=== PATIENT | male | born 1980 | race American Indian/Alaskan Native ===

== ENCOUNTER 2021-09-07 16:42 | Inpatient (IN) | payer SELFPAY ==
[2021-09-07] MEDS ORDERED: ONDANSETRON 4 MG/2 ML INJ IV ONE (19:46)
[2021-09-07] MEDS ORDERED: FAMOTIDINE 20 MG/2 ML INJ IV ONE (19:46)
[2021-09-07] MEDS ORDERED: SODIUM CHLORIDE 0.9% 1000 ML 1,000 ML IV ONE ×2 (19:46→22:19)
[2021-09-07] MEDS ORDERED: KETOROLAC 30 MG/1 ML INJ IV ONE (19:46)
[2021-09-07 20:01] LABS: Basophils # (Auto) 0.1 K/mm3 (0.0-0.1); Basophils % (Auto) 1.5 % (0.0-1.8); Eosinophils # (Auto) 0.1 K/mm3 (0.0-0.4); Eosinophils % (Auto) 0.8 % (0.0-4.3); Hematocrit 39.7 % (35.5-45.6); Hemoglobin 13.6 gm/dl (11.8-15.2); Lymphocytes # (Auto) 0.7 K/mm3 (1.2-5.4); Lymphocytes % (Auto) 8.3 % (13.4-35.0); Mean Corpuscular HGB Conc 34 % (32-34); Mean Corpuscular Volume 84 fl (84-94); Monocytes # (Auto) 0.4 K/mm3 (0.0-0.8); Monocytes % (Auto) 4.8 % (0.0-7.3); Platelet Count 224 K/mm3 (140-440); Red Blood Count 4.73 M/mm3 (3.65-5.03); Red Cell Distribution Width 12.8 % (13.2-15.2)
[2021-09-07 20:24] LABS: Albumin 3.7 g/dL (3.9-5); Calcium 7.7 mg/dL (8.4-10.2)
[2021-09-07] MEDS ORDERED: MORPHINE 4 MG/1 ML INJ IV ONE (20:40)
--- NOTE | 2021-09-07 21:02 | XRay Report ---
CHEST 1 VIEW 09/07/2021 8:50 PM INDICATION / CLINICAL INFORMATION: COUGH. COMPARISON: None available. FINDINGS: SUPPORT DEVICES: None. HEART / MEDIASTINUM: The heart size and pulmonary vasculature are normal. LUNGS / PLEURA: No significant pulmonary or pleural abnormality. No pneumothorax. ADDITIONAL FINDINGS: No significant additional findings. IMPRESSION: No acute findings. Signer Name: Diogenes Staton MD Signed: 09/07/2021 8:58 PM Workstation Name: [id number]
--- NOTE | 2021-09-07 21:05 | Emergency Department Report ---
ED N/V/D HPI - General Chief complaint: Nausea/Vomiting/Diarrhea Stated complaint: DEHYDRATION WITH N/V Source: patient Mode of arrival: Ambulatory Limitations: No Limitations - History of Present Illness Initial comments: Patient is a 40-year-old -Mauritian male with no past medical history who presents to the ED with complaint of acute onset persistent nausea and vomiting with low back pain and generalized weakness for the last 1 week. Patient also complains of generalized fatigue with intermittent diffuse lower abdominal pain that radiates to the lower back. Patient denies dizziness, syncope, chest pain or shortness of breath, fever, chills, cough, sore throat, hematemesis, hematochezia, diarrhea, dysuria, urinary frequency and urgency, hematuria or headache. MD complaint: nausea, vomiting, other (lower back pain; generalized weakness, abdominal pain) -: Sudden, week(s) (1) Description of Vomiting: food contents, watery, bilious Associated Abdominal Pain: Yes (diffuse) Location: diffuse Radiation: other (lower back pain) Severity: severe Pain Scale: 7 Quality: aching, sharp Consistency: constant Improves with: none Worsens with: movement Associated Symptoms: denies other symptoms, myalgias, loss of appetite, malaise, nausea/vomiting, weakness, other (lower back pain). denies: chest pain, cough, diaphoresis, fever/chills, headaches, rash, dysuria, shortness of breath, syncope - Related Data Allergies Allergy/AdvReac Type Severity Reaction Status Date / Time No Known Allergies Allergy Unverified 09/07/21 16:50 ED Review of Systems ROS: Stated complaint: DEHYDRATION WITH N/V Other details as noted in HPI Constitutional: malaise, weakness. denies: chills, fever Eyes: denies: eye pain, eye discharge, vision change ENT: denies: ear pain, throat pain Respiratory: denies: cough, shortness of breath, wheezing Cardiovascular: denies: chest pain, palpitations Endocrine: no symptoms reported Gastrointestinal: abdominal pain, nausea, vomiting. denies: diarrhea Genitourinary: denies: urgency, dysuria Musculoskeletal: back pain (lower), arthralgia, myalgia. denies: joint swelling Skin: denies: rash, lesions Neurological: headache. denies: weakness, paresthesias Psychiatric: denies: anxiety, depression Hematological/Lymphatic: denies: easy bleeding, easy bruising ED Physical Exam - General Limitations: No Limitations General appearance: alert, in no apparent distress - Head Head exam: Present: atraumatic, normocephalic, normal inspection - Eye Eye exam: Present: normal appearance, PERRL, EOMI Pupils: Present: normal accommodation - ENT ENT exam: Present: normal exam, normal orophraynx, mucous membranes moist, TM's normal bilaterally, normal external ear exam - Neck Neck exam: Present: normal inspection, full ROM - Respiratory Respiratory exam: Present: normal lung sounds bilaterally. Absent: respiratory distress, wheezes, rales, rhonchi, chest wall tenderness, accessory muscle use, prolonged expiratory - Cardiovascular Cardiovascular Exam: Present: regular rate, normal rhythm, normal heart sounds. Absent: systolic murmur, diastolic murmur, rubs, gallop - GI/Abdominal GI/Abdominal exam: Present: soft, normal bowel sounds. Absent: tenderness, guarding, rebound, hyperactive bowel sounds, hypoactive bowel sounds, organomegaly, mass, pulsatile mass - Extremities Exam Extremities exam: Present: normal inspection, full ROM, normal capillary refill - Back Exam Back exam: Present: normal inspection, full ROM, tenderness, muscle spasm, paraspinal tenderness. Absent: CVA tenderness (R), CVA tenderness (L), vertebra l tenderness (Palpable lumbosacral paraspinal musculoskeletal tenderness) - Neurological Exam Neurological exam: Present: alert, oriented X3, CN II-XII intact, normal gait, reflexes normal - Psychiatric Psychiatric exam: Present: normal affect, normal mood - Skin Skin exam: Present: warm, dry, intact, normal color. Absent: rash ED Course Vital Signs 09/07/21 16:53 Temperature 98.8 F Pulse Rate 60 Respiratory 20 Rate Blood Pressure 134/81 [Right] O2 Sat by Pulse 98 Oximetry ED Medical Decision Making - Lab Data Result diagrams: 09/07/21 19:51 09/07/21 19:51 - Radiology Data Radiology results: report reviewed, image reviewed [facility] [address] [place] [address] XRay Report Signed Patient: JUSTYNA PEREZ MR#: [id number] : 1980 Acct:[id number] Age/Sex: 40 / M ADM Date: 09/07/21 Loc: ED Attending Dr: Ordering Physician: NICHELLE BALLESTEROS Date of Service: 09/07/21 Procedure(s): XR chest 1V ap Accession Number(s): [id number] cc: NICHELLE BALLESTEROS Fluoro Time In Minutes: CHEST 1 VIEW 09/07/2021 8:50 PM INDICATION / CLINICAL INFORMATION: COUGH. COMPARISON: None available. FINDINGS: SUPPORT DEVICES: None. HEART / MEDIASTINUM: The heart size and pulmonary vasculature are normal. LUNGS / PLEURA: No significant pulmonary or pleural abnormality. No pneumothorax. ADDITIONAL FINDINGS: No significant additional findings. IMPRESSION: No acute findings. Signer Name: Diogenes Staton MD Signed: 09/07/2021 8:58 PM Workstation Name: [id number] Transcribed By: RT Dictated By: Diogenes Staton MD Electronically Authenticated By: Diogenes Staton MD Signed Date/Time: 09/07/212057 DD/ 56 TD/TT: Print - Medical Decision Making This is a 40-year-old -Mauritian male with no past medical history who presents to the ED with complaint of acute onset persistent nausea and vomiting with low back pain and generalized weakness for the last 1 week. Patient also complains of generalized fatigue with intermittent diffuse lower abdominal pain that radiates to the lower back. In the ED, patient is alert and oriented x3 and is not in any distress. Patient is more dynamically stable. Lab test results were reviewed and showed acute hyponatremia of 129 mmol/L, hypochloremia of 84.8 mmol/L, BUN of 171 and creatinine of 19.9, and hyperglycemia of 128 mg/dL. Patient was treated in the ED with normal saline, also given pain medication. Chest x-ray showed no acute cardiopulmonary abnormalities or pneumonitis. EKG shows sinus bradycardia with a ventricular rate of 55 bpm, and LAD, consideration of left anterior fascicular block but no ST elevation or depression. I discussed the patient's case with the ED attending physician Dr. Gay who agreed with the plan of care. I discussed the patient case with the financial assistance specialist on-call Dr. Fernando Bauman who agreed to consult on the patient and advised the patient be given IV fluids and that blood test can be performed. I therefore discussed the patient's case with the hospitalist physician on-call Dr. Cevallos who admitted the patient to the hospital. - Differential Diagnosis muscle spasm; renal injury; dehydration; NSTEMI; hyponatremia Critical Care Time: Yes Critical care time in (mins) excluding proc time.: 40 Critical care attestation.: If time is entered above; I have spent that time in minutes in the direct care of this critically ill patient, excluding procedure time. Critical care time spent on review of lab test results, imaging reports, patient education, consult with specialists Critical Care Time: 40 minutes ED Disposition Clinical Impression: Dehydration, Nausea and vomiting in adult patient, Acute hyponatremia, NSTEMI (non-ST elevated myocardial infarction) Acute renal failure (ARF) Qualifiers: Acute renal failure type: unspecified Qualified Code(s): N17.9 - Acute kidney failure, unspecified Disposition: 02 [facility]ORT TERM [facility] Is pt being admited?: Yes Does the pt Need Aspirin: No Condition: Fair Instructions: Dehydration, Adult, [id number] Referrals: PRIMARY CARE, [Primary Care Provider] - 3-5 Days Time of Disposition: 21:44 Print Language: TAMAZIGHT
[2021-09-07] MEDS ORDERED: ACETAMINOPHEN 325 MG TAB PO PRN ×2 (21:45→22:42)
[2021-09-07] MEDS ORDERED: ONDANSETRON 4 MG/2 ML INJ IV PRN ×2 (21:45→22:42)
[2021-09-07 22:05] LABS: Chol/HDL Ratio 4.21 %
[2021-09-07] MEDS ORDERED: MAGNESIUM HYDROXIDE (MOM) ORAL LIQD UDC PO PRN (22:42)
[2021-09-07] MEDS ORDERED: MORPHINE 2 MG/1 ML INJ IV PRN (22:42)
--- NOTE | 2021-09-07 22:53 | History and Physical Report ---
History of Present Illness Date of examination: 09/07/21 Date of admission: 09/07/2021 Chief complaint: Nausea vomiting and diarrhea Back pain History of present illness: 40-year-old -Maldivian male with no significant past medical history presents to the in the emergency room with acute onset of nausea and vomiting with accompanying lower back pain. He also indicates that he has been having generalized weakness over the past 1 week. Patient denies any fever or chills, denies any chest pain, no shortness of breath, no headache or dizziness and no diaphoresis. He has had some intermittent lower abdominal pain that radiates to the back. He denies any hematuria or dysuria. Patient denies any sick contacts and no recent travel. Denies any contact with anyone with COVID-19. Work-up in the emergency room today, significant findings when the labs with hyponatremia 129, BUN was 171 and creatinine of 19.9. Troponin of 0.174. Chest x-ray unremarkable. Renal ultrasound shows mild bilateral renal parenchymal thickening with echogenic kidneys. Mild right-sided hydronephrosis with stone disease. Past History Past Medical History: No medical history Past Surgical History: No surgical history Social history: no significant social history Family history: no significant family history Medications and Allergies Allergies Allergy/AdvReac Type Severity Reaction Status Date / Time No Known Allergies Allergy Unverified 09/07/21 16:50 Active Meds: Active Medications Acetaminophen (Acetaminophen 325 Mg Tab) 650 mg PO Q4H PRN PRN Reason: Pain MILD(1-3)/Fever >100.5/JOHNSON Heparin Sodium (Porcine) (Heparin 5,000 Unit/1 Ml Vial) 5,000 unit SUB-Q Q8HR MARK Sodium Chloride (Nacl 0.9% 1000 Ml) 1,000 mls @ 999 mls/hr IV BOLUS ONE Stop: 09/07/21 23:19 Sodium Chloride (Nacl 0.9% 1000 Ml) 1,000 mls @ 125 mls/hr IV DIRECT MARK Magnesium Hydroxide (Magnesium Hydroxide (Mom) Oral Liqd Udc) 30 ml PO Q4H PRN PRN Reason: Constipation Morphine Sulfate (Morphine 2 Mg/1 Ml Inj) 2 mg IV Q4H PRN PRN Reason: Pain, Moderate (4-6) Morphine Sulfate (Morphine 4 Mg/1 Ml Inj) 4 mg IV Q4H PRN PRN Reason: Pain , Severe (7-10) Ondansetron HCl (Ondansetron 4 Mg/2 Ml Inj) 4 mg IV Q8H PRN PRN Reason: Nausea And Vomiting Ondansetron HCl (Ondansetron 4 Mg/2 Ml Inj) 4 mg IV Q8H PRN PRN Reason: Nausea And Vomiting Sodium Chloride (Sodium Chloride 0.9% 10 Ml Flush Syringe) 10 ml IV BID MARK Sodium Chloride (Sodium Chloride 0.9% 10 Ml Flush Syringe) 10 ml IV PRN PRN PRN Reason: LINE FLUSH Review of Systems Constitutional: no fever, no chills Ears, nose, mouth and throat: no nasal congestion, no sore throat Cardiovascular: no chest pain, no palpitations Respiratory: no cough, no shortness of breath Gastrointestinal: nausea, vomiting, diarrhea, no abdominal pain, no hematemesis, no melena, no hematochezia Genitourinary Male: no dysuria, no hematuria, no flank pain, no nocturia Musculoskeletal: low back pain, no neck pain Integumentary: no rash, no pruritis Neurological: no headaches, no confusion Psychiatric: no anxiety, no depression Endocrine: no polyphagia, no polydipsia, no polyuria, no nocturia Exam - Constitutional Vitals: Temp Pulse Resp BP Pulse Ox 98.8 F 60 16 134/81 98 09/07/21 16:53 09/07/21 16:53 09/07/21 22:13 09/07/21 16:53 09/07/21 16:53 General appearance: Present: no acute distress, well-nourished - EENT Eyes: Present: PERRL, EOM intact. Absent: scleral icterus ENT: hearing intact, clear oral mucosa, dentition normal - Neck Neck: Present: supple, normal ROM - Respiratory Respiratory effort: normal Respiratory: bilateral: CTA - Cardiovascular Rhythm: regular Heart Sounds: Present: S1 & S2. Absent: systolic murmur, diastolic murmur, rub, click - Extremities Extremities: no ischemia, pulses intact, pulses symmetrical, No edema, normal temperature, normal color, Full ROM Peripheral Pulses: within normal limits - Abdominal General gastrointestinal: Present: soft, non-tender, non-distended, normal bowel sounds. Absent: mass - Integumentary Integumentary: Present: clear, warm, dry, normal turgor. Absent: rash - Musculoskeletal Musculoskeletal: strength equal bilaterally - Psychiatric Psychiatric: appropriate mood/affect, intact judgment & insight, memory intact, cooperative - Neurologic Neurologic: CNII-XII intact, no focal deficits, moves all extremities HEART Score - HEART Score Troponin: Troponin T 0.174 ng/mL (0.00-0.029) H* 09/07/21 20:51 Results - Labs CBC & Chem 7: 09/07/21 19:51 09/07/21 19:51 Labs: Abnormal lab results 09/07/21 09/07/21 09/07/21 Range/Units 19:51 19:51 20:51 RDW 12.8 L (13.2-15.2) % Lymph % (Auto) 8.3 L (13.4-35.0) % Lymph # (Auto) 0.7 L (1.2-5.4) K/mm3 Seg Neutrophils % 84.6 H (40.0-70.0) % Sodium 129 L (137-145) mmol/L Chloride 84.8 L (98-107) mmol/L Carbon Dioxide 17 L (22-30) mmol/L BUN 171 H (9-20) mg/dL Creatinine 19.9 H (0.8-1.3) mg/dL Glucose 128 H (75-100) mg/dL Calcium 7.7 L (8.4-10.2) mg/dL ALT 123 H (7-56) units/L Troponin T 0.174 H* (0.00-0.029) ng/mL Albumin 3.7 L (3.9-5) g/dL Triglycerides 220 H (2-149) mg/dL Assessment and Plan - Patient Problems (1) Acute renal failure (ARF) Current Visit: Yes Status: Acute Qualifiers: Acute renal failure type: unspecified Qualified Code(s): N17.9 - Acute kidney failure, unspecified Plan to address problem: Patient started on IV fluid normal saline. Will monitor BUN and creatinine. Consult placed to nephrology for evaluation. Renal ultrasound showed some mild right-sided hydronephrosis. May need urology evaluation. (2) Acute hyponatremia Current Visit: Yes Status: Acute Plan to address problem: Possibly secondary to the nausea and vomiting. Will continue on IV fluid and monitor chemistry. (3) Dehydration Current Visit: Yes Status: Acute Plan to address problem: Secondary to the nausea and vomiting. Will continue on IV fluid. (4) NSTEMI (non-ST elevated myocardial infarction) Current Visit: Yes Status: Acute Plan to address problem: Possibly secondary to the renal failure. Patient has denied any chest pain. Will monitor. (5) Nausea and vomiting in adult patient Current Visit: Yes Status: Acute Plan to address problem: Patient placed on IV Zofran as needed. (6) DVT prophylaxis Current Visit: Yes Status: Acute Plan to address problem: Patient placed on subcutaneous heparin. (7) Full code status Current Visit: Yes Status: Acute Plan to address problem: Patient is full code.
--- NOTE | 2021-09-08 01:37 | Ultrasound Report ---
. ULTRASOUND RENAL INDICATION / CLINICAL INFORMATION: Acute kidney injury. COMPARISON: None available. FINDINGS: RIGHT KIDNEY: Length = 11.6 cm. [normal > 9 cm] - Parenchymal Thickness = 1.2 cm. [normal > 1.5 cm] - Echogenicity: Increased - Hydronephrosis: Mild - Cyst or mass: No significant abnormality. - Stones: Calyceal stones measuring up to 5 mm in the lower pole. There also appears to be a stone in the right renal pelvis measuring 7 mm. LEFT KIDNEY: Length = 11.6 cm. [normal > 9 cm] - Parenchymal Thickness = 1.0 cm. [normal > 1.5 cm] - Echogenicity: Increased - Hydronephrosis: None. - Cyst or mass: No significant abnormality. - Stones: None seen. URINARY BLADDER: No significant abnormality. FREE FLUID: None. ADDITIONAL FINDINGS: None. IMPRESSION: 1. Mild bilateral renal parenchymal thinning and echogenic kidneys, nonspecific but often seen with m edical renal disease. 2. Mild right-sided hydronephrosis with stone disease as above. Signer Name: Cameron Mo MD Signed: 09/08/2021 1:33 AM Workstation Name: [id number]
[2021-09-08] MEDS ORDERED: FAMOTIDINE 20 MG/2 ML INJ IV ONE (01:55)
[2021-09-08] MEDS: MORPHINE 4 MG/1 ML INJ IV PRN ×2 (02:03→15:31)
[2021-09-08 05:40] LABS: Basophils % (Auto) 0.5 % (0.0-1.8); Eosinophils # (Auto) 0.1 K/mm3 (0.0-0.4); Eosinophils % (Auto) 1.3 % (0.0-4.3); Hematocrit 34.9 % (35.5-45.6); Hemoglobin 12.2 gm/dl (11.8-15.2); Lymphocytes # (Auto) 1.2 K/mm3 (1.2-5.4); Mean Corpuscular HGB Conc 35 % (32-34); Mean Corpuscular Volume 84 fl (84-94); Monocytes # (Auto) 0.5 K/mm3 (0.0-0.8); Monocytes % (Auto) 6.4 % (0.0-7.3); Platelet Count 213 K/mm3 (140-440); Red Blood Count 4.14 M/mm3 (3.65-5.03); Red Cell Distribution Width 12.9 % (13.2-15.2)
--- NOTE | 2021-09-08 11:01 | Consultation ---
History of Present Illness Consult date: 09/08/21 Requesting physician: MOI SINGER Consult reason: elevated troponin History of present illness: 40-year-old male who denies hypertension diabetes cholesterol states he was drinking too much on marito and since then is been feeling weak and fatigued. Was smoking. Denies any drug use. States was recently incarcerated and released in July. States seeing a physician and was stable. Denies any chest pain shortness of breath palpitation lightheadedness and Past History Past Medical History: No medical history Past Surgical History: No surgical history Social history: no significant social history Family history: no significant family history Medications and Allergies Allergies Allergy/AdvReac Type Severity Reaction Status Date / Time No Known Allergies Allergy Unverified 09/07/21 16:50 Active Meds: Active Medications Acetaminophen (Acetaminophen 325 Mg Tab) 650 mg PO Q4H PRN PRN Reason: Pain MILD(1-3)/Fever >100.5/JOHNSON Heparin Sodium (Porcine) (Heparin 5,000 Unit/1 Ml Vial) 5,000 unit SUB-Q Q8HR MARK Sodium Chloride (Nacl 0.9% 1000 Ml) 1,000 mls @ 125 mls/hr IV DIRECT MARK Magnesium Hydroxide (Magnesium Hydroxide (Mom) Oral Liqd Udc) 30 ml PO Q4H PRN PRN Reason: Constipation Morphine Sulfate (Morphine 2 Mg/1 Ml Inj) 2 mg IV Q4H PRN PRN Reason: Pain, Moderate (4-6) Morphine Sulfate (Morphine 4 Mg/1 Ml Inj) 4 mg IV Q4H PRN PRN Reason: Pain , Severe (7-10) Last Admin: 09/08/21 02:03 Dose: 4 mg Ondansetron HCl (Ondansetron 4 Mg/2 Ml Inj) 4 mg IV Q8H PRN PRN Reason: Nausea And Vomiting Sodium Chloride (Sodium Chloride 0.9% 10 Ml Flush Syringe) 10 ml IV BID [facility] Last Admin: 09/08/21 09:58 Dose: 10 ml Sodium Chloride (Sodium Chloride 0.9% 10 Ml Flush Syringe) 10 ml IV PRN PRN PRN Reason: LINE FLUSH Review of Systems All systems: negative (as per hpi) Physical Examination Vital Signs Temp Pulse Resp BP Pulse Ox 98.8 F 60 20 134/81 98 09/07/21 16:53 09/07/21 16:53 09/07/21 16:53 09/07/21 16:53 09/07/21 16:53 General appearance: no acute distress, well-nourished HEENT: Positive: PERRL, Mucus Membranes Moist Neck: Positive: neck supple, trachea midline Cardiac: Positive: Reg Rate and Rhythm, S1/S2. Negative: Audible Murmur Lungs: Positive: clear to auscultation, Normal Breath Sounds Neuro: Positive: Grossly Intact Abdomen: Positive: Soft, Active Bowel Sounds. Negative: Tender, Distended Male genitourinary: Positive: normal Skin: Positive: Clear Incision: Cardiac Cath Site Musculoskeletal: No Pain, Normal Range of Motion Extremities: Present: normal. Absent: edema Results 09/08/21 04:16 09/08/21 04:16 Cardiac Enzymes 09/07/21 Range/Units 19:51 AST 33 (5-40) units/L Lipids 09/07/21 Range/Units 20:51 Triglycerides 220 H (2-149) mg/dL Cholesterol 194 (50-199) mg/dL HDL Cholesterol 46 (40-59) mg/dL Cholesterol/HDL Ratio 4.21 % CBC 09/07/21 09/08/21 Range/Units 19:51 04:16 WBC 8.0 8.1 (4.5-11.0) K/mm3 RBC 4.73 4.14 (3.65-5.03) M/mm3 Hgb 13.6 12.2 (11.8-15.2) gm/dl Hct 39.7 34.9 L (35.5-45.6) % Plt Count 224 213 (140-440) K/mm3 Lymph # (Auto) 0.7 L 1.2 (1.2-5.4) K/mm3 [place] # (Auto) 0.4 0.5 (0.0-0.8) K/mm3 Eos # (Auto) 0.1 0.1 (0.0-0.4) K/mm3 Baso # (Auto) 0.1 0.0 (0.0-0.1) K/mm3 Comprehensive Metabolic Panel 09/07/21 09/08/21 Range/Units 19:51 04:16 Sodium 129 L 131 L (137-145) mmol/L Potassium 4.3 4.1 (3.6-5.0) mmol/L Chloride 84.8 L 88.9 L (98-107) mmol/L Carbon Dioxide 17 L 16 L (22-30) mmol/L BUN 171 H 170 H (9-20) mg/dL Creatinine 19.9 H 19.6 H (0.8-1.3) mg/dL Glucose 128 H 83 (75-100) mg/dL Calcium 7.7 L 7.0 L (8.4-10.2) mg/dL AST 33 (5-40) units/L ALT 123 H (7-56) units/L Alkaline Phosphatase 49 (35-129) units/L Total Protein 7.1 (6.3-8.2) g/dL Albumin 3.7 L (3.9-5) g/dL - Imaging and Cardiology Echo: pending EKG interpretations - Telemetry EKG Rhythm: Sinus Rhythm (Sinus rhythm no ST-T abnormality) Assessment and Plan 40-year-old male with acute renal failure abnormal troponin suggestive of non- STEMI type II no EKG changes denies any chest pain shortness of breath continue IV hydration we will do an echocardiogram. - Patient Problems (1) Acute hyponatremia Current Visit: Yes Status: Acute (2) Acute renal failure (ARF) Current Visit: Yes Status: Acute Qualifiers: Acute renal failure type: unspecified Qualified Code(s): N17.9 - Acute kidney failure, unspecified (3) NSTEMI (non-ST elevated myocardial infarction) Current Visit: Yes Status: Acute Plan to address problem: type 2 (4) Nausea and vomiting in adult patient Current Visit: Yes Status: Acute
--- NOTE | 2021-09-08 12:25 | Consultation ---
History of Present Illness - History of Present Illness Thank you for the consultation Patient was evaluated today My assessment and plan are as follows Severe renal failure in a patient who is 40-year-old admitted with symptoms of renal failure BUN was 171 creatinine was 19.9 with bicarbonate 17 and sodium of 129 We will look for reversible causes for renal failure, quite likely patient may have underlying chronic kidney disease that needs to be well-defined, patient appears to be symptomatic with renal failure and hence will benefit from initiation of renal replacement therapy without any further delay while we will look for any reversible causes though appears to be less likely, possibility of underlying chronic glomerulonephritis cannot be ruled out Patient does have bilateral echogenic kidneys, suggestive of chronic kidney disease #Mild right-sided hydronephrosis with stone, needs to see urology Patient does have bilateral echogenic kidney suggestive of chronic kidney disease, #Mild metabolic acidosis bicarbonate around 17 #Mild hyponatremia sodium around 129 #Blood pressure has been normal 134/80 #Mild hypocalcemia? Due to underlying chronic kidney disease bone mineral disorder secondary hyperparathyroidism vitamin D deficiency Need to establish etiology of hypercalcemia Author: Fernando Bauman M.D. [facility], [address] [place] [address] Tel; [phone] Source of information: From patient History of present illness 40-year-old -Nigerian male who has been admitted here with the not feeling weak fatigued and tired, history of ongoing smoking no history of any recreational drug or substance abuse no family history of chronic kidney di sease, no history of any prior hematuria proteinuria uncontrolled hypertension. Past medical history: None Current allergies: Reviewed from the current chart Social history: Reviewed from the current chart Family history: Reviewed from the current chart Review of system: Positive for All other review of systems negative Physical examination Vitals: Reviewed General: No acute distress HEENT: Oral mucosa moist no pallor or icterus Neck: Supple without any JVD thyromegaly or nodular mass Chest: Clear to auscultation Heart: Regular rate and rhythm S1-S2 heard no S3-S4 Abdomen: Soft nontender, bowel sounds present no renal bruit no suprapubic masses no CVA tenderness noted Extremity: Minimal edema dry skin no peripheral cyanosis Endocrine: Thyroid not enlarged Psychiatric: No agitation and aggression noted Musculoskeletal: No joint effusion noted Labs and x-rays: Reviewed from this admission Past History Past Medical History: No medical history Past Surgical History: No surgical history Social history: no significant social history Family history: no significant family history Medications and Allergies Allergies Allergy/AdvReac Type Severity Reaction Status Date / Time No Known Allergies Allergy Unverified 09/07/21 16:50 Active Meds: Active Medications Acetaminophen (Acetaminophen 325 Mg Tab) 650 mg PO Q4H PRN PRN Reason: Pain MILD(1-3)/Fever >100.5/JOHNSON Heparin Sodium (Porcine) (Heparin 5,000 Unit/1 Ml Vial) 5,000 unit SUB-Q Q8HR MARK Sodium Chloride (Nacl 0.9% 1000 Ml) 1,000 mls @ 125 mls/hr IV DIRECT MARK Magnesium Hydroxide (Magnesium Hydroxide (Mom) Oral Liqd Udc) 30 ml PO Q4H PRN PRN Reason: Constipation Morphine Sulfate (Morphine 2 Mg/1 Ml Inj) 2 mg IV Q4H PRN PRN Reason: Pain, Moderate (4-6) Morphine Sulfate (Morphine 4 Mg/1 Ml Inj) 4 mg IV Q4H PRN PRN Reason: Pain , Severe (7-10) Last Admin: 09/08/21 02:03 Dose: 4 mg Ondansetron HCl (Ondansetron 4 Mg/2 Ml Inj) 4 mg IV Q8H PRN PRN Reason: Nausea And Vomiting Sodium Chloride (Sodium Chloride 0.9% 10 Ml Flush Syringe) 10 ml IV BID [facility] Last Admin: 09/08/21 09:58 Dose: 10 ml Sodium Chloride (Sodium Chloride 0.9% 10 Ml Flush Syringe) 10 ml IV PRN PRN PRN Reason: LINE FLUSH Exam - Vital Signs Vital signs: Vital Signs Temp Pulse Resp BP Pulse Ox 98.8 F 60 20 134/81 98 09/07/21 16:53 09/07/21 16:53 09/07/21 16:53 09/07/21 16:53 09/07/21 16:53 Results - Lab Results 09/08/21 04:16 09/08/21 04:16 Most recent lab results Calcium 7.0 mg/dL (8.4-10.2) L 09/08/21 04:16
[2021-09-08 12:34] LABS: Bacteria,Urine 1+ /HPF (Negative); Bilirubin,Urine NEG (Negative); Blood,Urine LG (Negative); Color,Urine Yellow (Yellow); Mucus,Urine FEW /HPF; Urobilinogen,Urine < 2.0 mg/dL (<2.0)
[2021-09-08 13:22] LABS: Creatinine,Urine 310.9 mg/dL (0.1-20.0)
--- NOTE | 2021-09-08 13:27 | Progress Note ---
Assessment and Plan Assessment and plan: 40-year-old -Surinamese male with no significant past medical history presents to the in the emergency room with acute onset of nausea and vomiting with accompanying lower back pain. He also indicates that he has been having generalized weakness over the past 1 week. Patient denies any fever or chills, denies any chest pain, no shortness of breath, no headache or dizziness and no diaphoresis. He has had some intermittent lower abdominal pain that radiates to the back. He denies any hematuria or dysuria. Patient denies any sick contacts and no recent travel. Denies any contact with anyone with COVID-19. Work-up in the emergency room today, significant findings when the labs with hyponatremia 129, BUN was 171 and creatinine of 19.9. Troponin of 0.174. Chest x-ray unremarkable. Renal ultrasound shows mild bilateral renal parenchymal thickening with echogenic kidneys. Mild right-sided hydronephrosis with stone disease. 09/08: Consulted cardiology to assist with management considering elevated troponin although this could be type II due to renal dysfunction. No electrolyte abnormality noted at this time. Patient will likely need an outpatient urology evaluation. We will also place a consult to vascular for possible Vas-Cath in a.m. as patient likely will need dialysis. Anticipate that this will be a temporary dialysis but nevertheless we will leave from supervisor channel process. Urinalysis does show a mild UTI we will start the patient on ceftriaxone at this time. 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 Will monitor BUN and creatinine. Consult placed to nephrology for evaluation. Renal ultrasound showed some mild right-sided hydronephrosis. May need urology evaluation. (2) Acute hyponatremia Current Visit: Yes Status: Acute Plan to address problem: Possibly secondary to the nausea and vomiting. Will continue on IV fluid and monitor chemistry. (3) Dehydration Current Visit: Yes Status: Acute Plan to address problem: Secondary to the nausea and vomiting. Will continue on IV fluid. (4) NSTEMI (non-ST elevated myocardial infarction)-type II Current Visit: Yes Status: Acute Plan to address problem: Possibly secondary to the renal failure. Patient has denied any chest pain. Will monitor. (5) Nausea and vomiting in adult patient Current Visit: Yes Status: Acute Plan to address problem: Patient placed on IV Zofran as needed. (6) mild right-sided hydronephrosis with stones (7) acute cystitis (8) DVT prophylaxis Current Visit: Yes Status: Acute Plan to address problem: Patient placed on subcutaneous heparin. (9) Full code status Current Visit: Yes Status: Acute Plan to address problem: Patient is full code. History Interval history: Patient seen and examined this morning remains lethargic. Denies any chest pain or shortness of breath. Hospitalist Physical - Physical exam Narrative exam: VITAL SIGNS: Reviewed. GENERAL: The patient appears normally developed, otherwise lethargic vital signs as documented. HEAD: No signs of head trauma. EYES: Pupils are equal. Extraocular motions intact. EARS: Hearing grossly intact. MOUTH: Oropharynx is normal. NECK: No adenopathy, no JVD. CHEST: Chest with clear breath sounds bilaterally. No wheezes, rales, or rhonchi. CARDIAC: Regular rate and rhythm. S1 and S2, without murmurs, gallops, or rubs. VASCULAR: No Edema. Peripheral pulses normal and equal in all extremities. ABDOMEN: Soft, non tender and non distended. No rebound or guarding, and no masses palpated. Bowel Sounds normal. MUSCULOSKELETAL: Good range of motion of all major joints. Extremities without clubbing, cyanosis or edema. NEUROLOGIC EXAM: awake and oriented x 3 No focal sensory or strength defici ts. Speech normal. Follows commands. PSYCHIATRIC: Mood normal. SKIN: detail exam as documented in skin assessment - Constitutional Vitals: Temp Pulse Resp BP Pulse Ox 98.3 F 58 L 18 96/56 99 09/08/21 08:30 09/08/21 13:07 09/08/21 13:07 09/08/21 13:07 09/08/21 13:07 General appearance: Present: no acute distress, well-nourished HEART Score - HEART Score Troponin: Troponin T 0.164 ng/mL (0.00-0.029) H* 09/08/21 11:00 Results - Labs CBC & Chem 7: 09/08/21 04:16 09/08/21 04:16 Labs: Laboratory Last Values WBC 8.1 K/mm3 (4.5-11.0) 09/08/21 04:16 RBC 4.14 M/mm3 (3.65-5.03) 09/08/21 04:16 Hgb 12.2 gm/dl (11.8-15.2) 09/08/21 04:16 Hct 34.9 % (35.5-45.6) L 09/08/21 04:16 MCV 84 fl (84-94) 09/08/21 04:16 MCH 29 pg (28-32) 09/08/21 04:16 MCHC 35 % (32-34) H 09/08/21 04:16 RDW 12.9 % (13.2-15.2) L 09/08/21 04:16 Plt Count 213 K/mm3 (140-440) 09/08/21 04:16 Lymph % (Auto) 15.0 % (13.4-35.0) 09/08/21 04:16 [place] % (Auto) 6.4 % (0.0-7.3) 09/08/21 04:16 Eos % (Auto) 1.3 % (0.0-4.3) 09/08/21 04:16 Baso % (Auto) 0.5 % (0.0-1.8) 09/08/21 04:16 Lymph # (Auto) 1.2 K/mm3 (1.2-5.4) 09/08/21 04:16 [place] # (Auto) 0.5 K/mm3 (0.0-0.8) 09/08/21 04:16 Eos # (Auto) 0.1 K/mm3 (0.0-0.4) 09/08/21 04:16 Baso # (Auto) 0.0 K/mm3 (0.0-0.1) 09/08/21 04:16 Seg Neutrophils % 76.8 % (40.0-70.0) H 09/08/21 04:16 Seg Neutrophils # 6.2 K/mm3 (1.8-7.7) 09/08/21 04:16 Sodium 131 mmol/L (137-145) L 09/08/21 04:16 Potassium 4.1 mmol/L (3.6-5.0) 09/08/21 04:16 Chloride 88.9 mmol/L (98-107) L 09/08/21 04:16 Carbon Dioxide 16 mmol/L (22-30) L 09/08/21 04:16 Anion Gap 30 mmol/L 09/08/21 04:16 BUN 170 mg/dL (9-20) H 09/08/21 04:16 Creatinine 19.6 mg/dL (0.8-1.3) H 09/08/21 04:16 Estimated GFR 3 ml/min 09/08/21 04:16 BUN/Creatinine Ratio 9 % 09/08/21 04:16 Glucose 83 mg/dL (75-100) 09/08/21 04:16 Calcium 7.0 mg/dL (8.4-10.2) L 09/08/21 04:16 Total Bilirubin 0.30 mg/dL (0.1-1.2) 09/07/21 19:51 AST 33 units/L (5-40) 09/07/21 19:51 ALT 123 units/L (7-56) H 09/07/21 19:51 Alkaline Phosphatase 49 units/L (35-129) 09/07/21 19:51 Troponin T 0.164 ng/mL (0.00-0.029) H* 09/08/21 11:00 Total Protein 7.1 g/dL (6.3-8.2) 09/07/21 19:51 Albumin 3.7 g/dL (3.9-5) L 09/07/21 19:51 Albumin/Globulin Ratio 1.1 % 09/07/21 19:51 Triglycerides 220 mg/dL (2-149) H 09/07/21 20:51 Cholesterol 194 mg/dL (50-199) 09/07/21 20:51 LDL Cholesterol Direct 108 mg/dL (50-130) 09/07/21 20:51 HDL Cholesterol 46 mg/dL (40-59) 09/07/21 20:51 Cholesterol/HDL Ratio 4.21 % 09/07/21 20:51 Urine Color Yellow (Yellow) 09/08/21 11:46 Urine Turbidity Slightly-cloudy (Clear) 09/08/21 11:46 Urine pH 5.0 (5.0-7.0) 09/08/21 11:46 Ur Specific [place] 1.014 (1.003-1.030) 09/08/21 11:46 Urine Protein 100 mg/dl mg/dL (Negative) 09/08/21 11:46 Urine Glucose (UA) 50 mg/dL (Negative) 09/08/21 11:46 Urine Ketones Neg mg/dL (Negative) 09/08/21 11:46 Urine Blood Lg (Negative) 09/08/21 11:46 Urine Nitrite Neg (Negative) 09/08/21 11:46 Urine Bilirubin Neg (Negative) 09/08/21 11:46 Urine Urobilinogen < 2.0 mg/dL (<2.0) 09/08/21 11:46 Ur Leukocyte Esterase Sm (Negative) 09/08/21 11:46 Urine WBC (Auto) 20.0 /HPF (0.0-6.0) H 09/08/21 11:46 Urine RBC (Auto) 3.0 /HPF (0.0-6.0) 09/08/21 11:46 U Epithel Cells (Auto) 1.0 /HPF (0-13.0) 09/08/21 11:46 Urine Bacteria (Auto) 1+ /HPF (Negative) 09/08/21 11:46 Urine Mucus Few /HPF 09/08/21 11:46 Urine Creatinine 310.9 mg/dL (0.1-20.0) H 09/08/21 12:28 Urine Sodium 29 mmol/L 09/08/21 12:28 Urine Total Protein 111 mg/dL (5-11.8) H 09/08/21 12:28 Active Medications - Current Medications Current Medications: Generic Name Dose Route Start Last Admin Trade Name Freq PRN Reason Stop Dose Admin Acetaminophen 650 mg 09/07/21 22:17 Acetaminophen 325 Mg Tab PO Q4H PRN Pain MILD(1-3)/Fever >100.5/JOHNSON Heparin Sodium (Porcine) 5,000 unit 09/08/21 06:00 Heparin 5,000 Unit/1 Ml Vial SUB-Q Q8HR MARK Sodium Chloride 1,000 mls @ 125 mls/hr 09/07/21 22:45 Nacl 0.9% 1000 Ml IV DIRECT MARK Ceftriaxone Sodium 1 gm in 50 mls @ 100 mls/hr 09/08/21 14:00 Rocephin/Ns 1 Gm/50 Ml IV Q24H [facility] Protocol Magnesium Hydroxide 30 ml 09/07/21 22:42 Magnesium Hydroxide (Mom) Oral Liqd Udc PO Q4H PRN Constipation Morphine Sulfate 2 mg 09/07/21 22:42 Morphine 2 Mg/1 Ml Inj IV Q4H PRN Pain, Moderate (4-6) Morphine Sulfate 4 mg 09/07/21 22:42 09/08/21 02:03 Morphine 4 Mg/1 Ml Inj IV 4 mg Q4H PRN Administration Pain , Severe (7-10) Ondansetron HCl 4 mg 09/07/21 22:17 Ondansetron 4 Mg/2 Ml Inj IV Q8H PRN Nausea And Vomiting Sodium Chloride 10 ml 09/07/21 22:00 09/08/21 09:58 Sodium Chloride 0.9% 10 Ml Flush Syringe IV 10 ml BID MARK Administration Sodium Chloride 10 ml 09/07/21 21:45 Sodium Chloride 0.9% 10 Ml Flush Syringe IV PRN PRN LINE FLUSH
[2021-09-08] MEDS: cefTRIAXone/NS 1 GM/50 ML 1 GM/50 ML BAG IV SCH (15:30)
[2021-09-08] MEDS: ONDANSETRON 4 MG/2 ML INJ IV PRN (15:31)
[2021-09-08 17:09] LABS: Hepatitis C Virus Antibody Non-Reactive (NonReactive)
[2021-09-08 17:18] LABS: Hepatitis B Surface Antigen Nonreactive (Negative)
[2021-09-09] MEDS: HEPARIN 5,000 UNIT/1 ML VIAL SUB-Q SCH ×4 (02:02→21:43)
[2021-09-09] MEDS: SODIUM CHLORIDE 0.9% 1000 ML 1,000 ML IV SCH (05:08)
[2021-09-09 07:57] LABS: Hematocrit 33.2 % (35.5-45.6); Hemoglobin 11.5 gm/dl (11.8-15.2); Mean Corpuscular HGB Conc 35 % (32-34); Mean Corpuscular Volume 84 fl (84-94); Platelet Count 233 K/mm3 (140-440); Red Blood Count 3.95 M/mm3 (3.65-5.03); Red Cell Distribution Width 13.4 % (13.2-15.2)
[2021-09-09 08:10] LABS: Calcium 7.4 mg/dL (8.4-10.2)
[2021-09-09] MEDS ORDERED: HEPARIN/NS 5000 UNIT/500ML 1,000 ML IR ONE (09:14)
[2021-09-09] MEDS ORDERED: MIDAZOLAM 2 MG/2 ML INJ ONE (09:32)
[2021-09-09] MEDS ORDERED: fentaNYL 100 MCG/2 ML INJ ONE (09:32)
[2021-09-09] MEDS ORDERED: HEPARIN 10,000 UNITS/10 ML VIAL ONE (09:38)
[2021-09-09] MEDS ORDERED: diphenhydrAMINE 50 MG/ML VIAL ONE (09:41)
[2021-09-09] MEDS: LIDOCAINE 1%/EPINEPHRINE 1:100,000 VIAL (20 ML) INFILTRATI ONE ×3 (09:43→09:51)
--- NOTE | 2021-09-09 10:08 | Consultation ---
History of Present Illness - Reason for Consult Consult date: 09/09/21 dialysis access Requesting physician: KRISTOPHER HATFIELD - History of Present Illness 40-year-old -[place]ene[place] male with no significant past medical history presents to the in the emergency room with acute onset of nausea and vomiting with accompanying lower back pain. He also indicates that he has been having generalized weakness over the past 1 week. Patient denies any fever or chills, denies any chest pain, no shortness of breath, no headache or dizziness and no diaphoresis. He has had some intermittent lower abdominal pain that radiates to the back. He denies any hematuria or dysuria. Patient denies any sick contacts and no recent travel. Denies any contact with anyone with COVID-19. Work-up in the emergency room today, significant findings when the labs with hyponatremia 129, BUN was 171 and creatinine of 19.9. Troponin of 0.174. Chest x-ray unremarkable. Renal ultrasound shows mild bilateral renal parenchymal thickening with echogenic kidneys. Mild right-sided hydronephrosis with stone disease. Nephrology saw the patient and wanted to initiate dialysis. Vascular consulted. Risks, benefits, and alternatives discussed for PermCath placement. Past History Past Medical History: No medical history Past Surgical History: No surgical history Social history: no significant social history Family history: no significant family history Medications and Allergies Allergies Allergy/AdvReac Type Severity Reaction Status Date / Time No Known Allergies Allergy Unverified 09/07/21 16:50 Active Meds: Active Medications Acetaminophen (Acetaminophen 325 Mg Tab) 650 mg PO Q4H PRN PRN Reason: Pain MILD(1-3)/Fever >100.5/JOHNSON Heparin Sodium (Porcine) (Heparin 5,000 Unit/1 Ml Vial) 5,000 unit SUB-Q Q8HR MARK Last Admin: 09/09/21 05:09 Dose: 5,000 unit Sodium Chloride (Nacl 0.9% 1000 Ml) 1,000 mls @ 125 mls/hr IV DIRECT MARK Last Admin: 09/09/21 05:08 Dose: 125 mls/hr Ceftriaxone Sodium (Rocephin/Ns 1 Gm/50 Ml) 1 gm in 50 mls @ 100 mls/hr IV Q24H MARK; Protocol Last Admin: 09/08/21 15:30 Dose: 100 mls/hr Magnesium Hydroxide (Magnesium Hydroxide (Mom) Oral Liqd Udc) 30 ml PO Q4H PRN PRN Reason: Constipation Morphine Sulfate (Morphine 2 Mg/1 Ml Inj) 2 mg IV Q4H PRN PRN Reason: Pain, Moderate (4-6) Morphine Sulfate (Morphine 4 Mg/1 Ml Inj) 4 mg IV Q4H PRN PRN Reason: Pain , Severe (7-10) Last Admin: 09/08/21 15:31 Dose: 4 mg Ondansetron HCl (Ondansetron 4 Mg/2 Ml Inj) 4 mg IV Q8H PRN PRN Reason: Nausea And Vomiting Last Admin: 09/08/21 15:31 Dose: 4 mg Sodium Chloride (Sodium Chloride 0.9% 10 Ml Flush Syringe) 10 ml IV BID MARK Last Admin: 09/08/21 09:58 Dose: 10 ml Sodium Chloride (Sodium Chloride 0.9% 10 Ml Flush Syringe) 10 ml IV PRN PRN PRN Reason: LINE FLUSH Review of Systems All systems: negative (see HPI) Exam - Constitutional Vitals: Temp Pulse Resp BP Pulse Ox 98.2 F 64 20 148/76 97 09/09/21 02:23 09/09/21 02:29 09/09/21 02:23 09/09/21 02:00 09/09/21 02:30 General appearance: Present: no acute distress - EENT Eyes: Present: EOM intact ENT: hearing intact - Neck Neck: Present: supple - Respiratory Respiratory effort: normal - Abdominal General gastrointestinal: Present: soft, non-tender - Psychiatric Psychiatric: appropriate mood/affect, cooperative Results - Labs CBC & Chem 7: 09/09/21 07:38 09/09/21 07:38 Labs: Abnormal lab results 09/08/21 09/08/21 09/08/21 Range/Units 11:00 11:46 12:28 Hgb (11.8-15.2) gm/dl Hct (35.5-45.6) % MCHC (32-34) % Sodium (137-145) mmol/L Chloride (98-107) mmol/L Carbon Dioxide (22-30) mmol/L BUN (9-20) mg/dL Creatinine (0.8-1.3) mg/dL Glucose (75-100) mg/dL Uric Acid (3.5-7.6) mg/dL Calcium (8.4-10.2) mg/dL Troponin T 0.164 H* (0.00-0.029) ng/mL PTH Intact (15-65) pg/mL Urine WBC (Auto) 20.0 H (0.0-6.0) /HPF Urine Creatinine 310.9 H (0.1-20.0) mg/dL Urine Total Protein 111 H (5-11.8) mg/dL 09/08/21 09/08/21 09/08/21 Range/Units 15:50 15:50 15:50 Hgb (11.8-15.2) gm/dl Hct (35.5-45.6) % MCHC (32-34) % Sodium (137-145) mmol/L Chloride (98-107) mmol/L Carbon Dioxide (22-30) mmol/L BUN (9-20) mg/dL Creatinine (0.8-1.3) mg/dL Glucose (75-100) mg/dL Uric Acid 13.2 H (3.5-7.6) mg/dL Calcium (8.4-10.2) mg/dL Troponin T 0.188 H* (0.00-0.029) ng/mL PTH Intact 384.5 H (15-65) pg/mL Urine WBC (Auto) (0.0-6.0) /HPF Urine Creatinine (0.1-20.0) mg/dL Urine Total Protein (5-11.8) mg/dL 09/09/21 09/09/21 Range/Units 07:38 07:38 Hgb 11.5 L (11.8-15.2) gm/dl Hct 33.2 L (35.5-45.6) % MCHC 35 H (32-34) % Sodium 133 L (137-145) mmol/L Chloride 92.5 L (98-107) mmol/L Carbon Dioxide 16 L (22-30) mmol/L BUN 174 H (9-20) mg/dL Creatinine 21.3 H (0.8-1.3) mg/dL Glucose 113 H (75-100) mg/dL Uric Acid (3.5-7.6) mg/dL Calcium 7.4 L (8.4-10.2) mg/dL Troponin T 0.197 H* (0.00-0.029) ng/mL PTH Intact (15-65) pg/mL Urine WBC (Auto) (0.0-6.0) /HPF Urine Creatinine (0.1-20.0) mg/dL Urine Total Protein (5-11.8) mg/dL Assessment and Plan 40-year-old male with acute renal failure and possibly end-stage renal disease requiring hemodialysis. Risks, benefits, and alternatives discussed. PermCath placed for patient. Recommend CT of the abdomen and pelvis without contrast for further evaluation.
[2021-09-09] MEDS ORDERED: SODIUM CHLORIDE 0.9% 100 ML IV PRN (10:10)
--- NOTE | 2021-09-09 10:10 | Progress Note ---
Subjective Date of service: 09/09/21 Principal diagnosis: grayson Interval history: #GRAYSON, obstructive nephropathy--Severe renal failure in a patient who is 40-year-old admitted with symptoms of renal failure BUN was 171 creatinine was 19.9 with bicarbonate 17 and sodium of 129 We will look for reversible causes for renal failure, quite likely patient may have underlying chronic kidney disease that needs to be well-defined, patient appears to be symptomatic with renal failure and hence will benefit from initiation of renal replacement therapy today and daily until uremia resolved possibility of underlying chronic glomerulonephritis cannot be ruled out Patient does have bilateral echogenic kidneys, suggestive of chronic kidney disease #Mild right-sided hydronephrosis with stone, needs to see urology Patient does have bilateral echogenic kidney suggestive of chronic kidney disease, #Mild metabolic acidosis--give sodium bicarbonate #Mild hyponatremia #HTN #Mild hypocalcemia? Due to underlying chronic kidney disease bone mineral disorder secondary hyperparathyroidism vitamin D deficiency Need to establish etiology of hypercalcemia--follow up spep, immunofixation Subjective: 40-year-old -[place] male who has been admitted here with the not feel ing weak fatigued and tired, history of ongoing smoking no history of any recreational drug or substance abuse no family history of chronic kidney disease, no history of any prior hematuria proteinuria uncontrolled hypertension. Physical examination Vitals: Reviewed General: No acute distress HEENT: Oral mucosa moist no pallor or icterus Neck: Supple without any JVD thyromegaly or nodular mass Chest: Clear to auscultation Heart: Regular rate and rhythm S1-S2 heard no S3-S4 Abdomen: Soft nontender, bowel sounds present no renal bruit no suprapubic masses no CVA tenderness noted Extremity: Minimal edema dry skin no peripheral cyanosis Endocrine: Thyroid not enlarged Psychiatric: No agitation and aggression noted Musculoskeletal: No joint effusion noted Objective - Vital Signs Vital signs: Vital Signs - 12hr 09/08/21 09/09/21 09/09/21 23:30 01:02 02:00 Temperature Pulse Rate 57 L 59 L 86 Respiratory 17 16 20 Rate Blood Pressure 152/64 132/77 148/76 [Right] O2 Sat by Pulse 97 96 98 Oximetry 09/09/21 09/09/21 09/09/21 02:23 02:29 02:30 Temperature 98.2 F Pulse Rate 64 Respiratory 20 Rate Blood Pressure [Right] O2 Sat by Pulse 97 Oximetry - Lab 09/09/21 07:38 09/09/21 07:38 Most recent lab results Calcium 7.4 mg/dL (8.4-10.2) L 09/09/21 07:38 Urine Creatinine 310.9 mg/dL (0.1-20.0) H 09/08/21 12:28 Urine Sodium 29 mmol/L 09/08/21 12:28 Urine Total Protein 111 mg/dL (5-11.8) H 09/08/21 12:28 Medications & Allergies - Medications Allergies/Adverse Reactions: Allergies No Known Allergies Allergy (Unverified 09/07/21 16:50) Active Medications: Generic Name Dose Route Start Last Admin Trade Name Freq PRN Reason Stop Dose Admin Acetaminophen 650 mg 09/07/21 22:17 Acetaminophen 325 Mg Tab PO Q4H PRN Pain MILD(1-3)/Fever >100.5/JOHNSON Heparin Sodium (Porcine) 5,000 unit 09/08/21 06:00 09/09/21 05:09 Heparin 5,000 Unit/1 Ml Vial SUB-Q 5,000 unit Q8HR MARK Administration Sodium Chloride 1,000 mls @ 125 mls/hr 09/07/21 22:45 09/09/21 05:08 Nacl 0.9% 1000 Ml IV 125 mls/hr DIRECT MARK Administration Ceftriaxone Sodium 1 gm in 50 mls @ 100 mls/hr 09/08/21 14:00 09/08/21 15:30 Rocephin/Ns 1 Gm/50 Ml IV 100 mls/hr Q24H MARK Administration Protocol Magnesium Hydroxide 30 ml 09/07/21 22:42 Magnesium Hydroxide (Mom) Oral Liqd Udc PO Q4H PRN Constipation Morphine Sulfate 2 mg 09/07/21 22:42 Morphine 2 Mg/1 Ml Inj IV Q4H PRN Pain, Moderate (4-6) Morphine Sulfate 4 mg 09/07/21 22:42 09/08/21 15:31 Morphine 4 Mg/1 Ml Inj IV 4 mg Q4H PRN Administration Pain , Severe (7-10) Ondansetron HCl 4 mg 09/07/21 22:17 09/08/21 15:31 Ondansetron 4 Mg/2 Ml Inj IV 4 mg Q8H PRN Administration Nausea And Vomiting Sodium Chloride 10 ml 09/07/21 22:00 09/08/21 09:58 Sodium Chloride 0.9% 10 Ml Flush Syringe IV 10 ml BID MARK Administration Sodium Chloride 10 ml 09/07/21 21:45 Sodium Chloride 0.9% 10 Ml Flush Syringe IV PRN PRN LINE FLUSH
--- NOTE | 2021-09-09 10:35 | Operative Report ---
Operative Report Operative Report: EXAM: 1. Ultrasound-guided puncture of the right internal jugular vein 2. Fluoroscopic-guided placement of a right internal jugular tunneled cuffed hemodialysis catheter. DATE: 09/09/2021 INDICATION: Acute renal failure, require hemodialysis. MEDICATIONS: Please see nursing report for full details. DEVICES: 23 cm tip to cuff 15 Fr dual lumen hemodialysis catheter BRASS POURER: RAQUEL PRADHAN MD CONTRAST: None PROCEDURE: The risks, benefits, and alternatives were discussed and informed consent was obtained. The patient was transported to the angiography suite in satisfactory/stable condition and was transported onto the angiography table. The patient's right internal jugular vein was assessed with ultrasound and determined to be patent prior to procedure. The patient was prepped and draped in a sterile fashion. The puncture site was anesthetized. Under sonographic guidance, the right i nternal jugular vein was punctured with a 21-gauge micropuncture needle and a 0.018 inch wire was advanced into the inferior vena cava. The micropuncture needle was exchanged for a transitional dilator and the wire was retracted into the right atrium to rebecca intravascular distance. The wire and inner dilator were removed. 0.035 inch wire was advanced through the transitional dilator into the inferior vena cava. A suitable exit site was identified on the patient's chest inferior and lateral to the venotomy. The site was anesthetized with local anesthetic and the track was anesthetized. Dermatotomy was made. The PermCath was attached to the tunneling device and tunneled between the dermatotomy to the venotomy. Over the 0.035 inch wire, serial dilatation was performed with ultimate placement of a peel-away sheath. The catheter was advanced through the peel- away sheath after the wire was removed and positioned centrally under fluoroscopic guidance. The peel-away sheath was removed. 3-0 Vicryl suture was used to close the venotomy and Dermabond was then applied. 2-0 Ethilon suture was used to secure the catheter at the dermatotomy. The catheter was charged with heparin 1000 units/mL space. Sterile dressing and biopatch applied. The patient was transferred from the angiography suite in stable condition. FINDINGS: 1. Excellent flow was obtained through the dialysis catheter with 20 mL syringes. 2. The catheter tip is in the right atrium. IMPRESSION: 1. Successful ultrasound and fluoroscopically guided placement of a right internal jugular tunneled cuffed hemodialysis catheter.
--- NOTE | 2021-09-09 11:52 | Cat Scan Report ---
CT ABDOMEN AND PELVIS WITHOUT CONTRAST INDICATION / CLINICAL INFORMATION: Acute renal failure, hydronephrosis. TECHNIQUE: Axial CT images were obtained through the abdomen and pelvis without IV contrast. All CT scans at [facility] location are performed using CT dose reduction for ALARA by means of automated exposure control. COMPARISON: Renal ultrasound dated 09/07/2021. FINDINGS: LOWER CHEST: There are small pleural effusions with associated atelectasis. A venous catheter termina monika at the cavoatrial junction. No other significant abnormality. LIVER: No significant abnormality. GALLBLADDER: No significant abnormality. BILE DUCTS: No significant abnormality. PANCREAS: No significant abnormality. SPLEEN: No significant abnormality. ADRENALS: No significant abnormality. RIGHT KIDNEY/URETER: Multiple small calyceal stones are seen along the right upper renal pole measuri ng up to 2 mm. No other stones or hydroureteronephrosis. No suspicious renal lesions. There is mild r ight perinephric fat stranding. LEFT KIDNEY/URETER: There is mild left perinephric fat stranding without other significant abnormalit ies. STOMACH/SMALL BOWEL: No significant abnormality. COLON: No significant abnormality. APPENDIX: No significant abnormality. PERITONEUM: Trace free fluid is seen along the pelvis. No free air. No fluid collection. LYMPH NODES: No significant adenopathy. VASCULATURE: No significant abnormality. URINARY BLADDER: No significant abnormality. REPRODUCTIVE ORGANS: No significant abnormality. ADDITIONAL FINDINGS: None. BONES: No significant abnormality IMPRESSION: 1. Mild bilateral perinephric fat stranding, consistent with the provided history of acute renal fail ure. 2. Tiny nonobstructive right renal stones measuring up to 2 mm. 3. No hydronephrosis or other acute abdominopelvic findings. 4. Small pleural effusions. Signer Name: Dedrick Griffin MD Signed: 09/09/2021 11:48 AM Workstation Name: [id number]
--- NOTE | 2021-09-09 12:44 | Progress Note ---
Assessment and Plan 40-year-old male who denies hypertension diabetes cholesterol states he was drinking too much on [place] 's marito and since then is been feeling weak and fatigued. Was smoking. Denies any drug use. States was recently incarcerated and released in July. Acute renal failure-nephrology follow NSTEMI type II Hyponatremia Plan: Patient for permacath today Troponins elevated likely due to acute renal failure patient denies chest pain Echo pending COVID test pending Patient seen in conjunction with Dr. Hernandez who agrees with this plan of care - Patient Problems (1) Acute hyponatremia Current Visit: Yes Status: Acute (2) Acute renal failure (ARF) Current Visit: Yes Status: Acute Qualifiers: Acute renal failure type: unspecified Qualified Code(s): N17.9 - Acute kidney failure, unspecified (3) Dehydration Current Visit: Yes Status: Acute (4) NSTEMI (non-ST elevated myocardial infarction) Current Visit: Yes Status: Acute (5) Nausea and vomiting in adult patient Current Visit: Yes Status: Acute Subjective Date of service: 09/09/21 Principal diagnosis: jennifer Interval history: Patient for permacath today Not on monitor but previously trending sinus bradycardia's 50s overnight Objective Vital Signs Temp Pulse Resp BP Pulse Ox 09/09/21 02:30 97 09/09/21 02:29 64 09/09/21 02:23 98.2 F 20 09/09/21 02:00 86 20 148/76 98 09/09/21 01:02 59 L 16 132/77 96 09/08/21 23:30 57 L 17 152/64 97 09/08/21 20:30 56 L 17 150/59 09/08/21 13:07 58 L 18 96/56 99 - Physical Examination General: No Apparent Distress HEENT: Positive: PERRL, Mucus Membranes Moist Neck: Positive: neck supple, trachea midline Cardiac: Positive: Reg Rate and Rhythm Lungs: Positive: Decreased Breath Sounds Neuro: Positive: Grossly Intact Abdomen: Positive: Soft, Active Bowel Sounds. Negative: Tender, Distended Skin: Positive: Clear Incision: Cardiac Cath Site Musculoskeletal: No Pain, Normal Range of Motion Extremities: Present: normal. Absent: edema - Labs and Meds CBC 09/09/21 Range/Units 07:38 WBC 5.5 (4.5-11.0) K/mm3 RBC 3.95 (3.65-5.03) M/mm3 Hgb 11.5 L (11.8-15.2) gm/dl Hct 33.2 L (35.5-45.6) % Plt Count 233 (140-440) K/mm3 Comprehensive Metabolic Panel 09/09/21 Range/Units 07:38 Sodium 133 L (137-145) mmol/L Potassium 4.3 (3.6-5.0) mmol/L Chloride 92.5 L (98-107) mmol/L Carbon Dioxide 16 L (22-30) mmol/L BUN 174 H (9-20) mg/dL Creatinine 21.3 H (0.8-1.3) mg/dL Glucose 113 H (75-100) mg/dL Calcium 7.4 L (8.4-10.2) mg/dL - Imaging and Cardiology Echo: pending - Telemetry EKG Rhythm: Sinus Bradycardia - EKG Sinus rhythms and dysrhythmias: sinus rhythm
[2021-09-09] MEDS: cefTRIAXone/NS 1 GM/50 ML 1 GM/50 ML BAG IV SCH (13:34)
--- NOTE | 2021-09-09 15:07 | Progress Note ---
Subjective Date of service: 09/09/21 Principal diagnosis: grayson Interval history: 40-year-old -[place] male with no significant past medical history presents to the in the emergency room with acute onset of nausea and vomiting with accompanying lower back pain. He also indicates that he has been having generalized weakness over the past 1 week. Patient denies any fever or chills, denies any chest pain, no shortness of breath, no headache or dizziness and no diaphoresis. He has had some intermittent lower abdominal pain that radiates to the back. He denies any hematuria or dysuria. Patient denies any sick contacts and no recent travel. Denies any contact with anyone with COVID-19. Work-up in the emergency room today, significant findings when the labs with hyponatremia 129, BUN was 171 and creatinine of 19.9. Troponin of 0.174. Chest x-ray unremarkable. Renal ultrasound shows mild bilateral renal parenchymal thickening with echogenic kidneys. Mild right-sided hydronephrosis with stone disease. 09/08: Consulted cardiology to assist with management considering elevated troponin although this could be type II due to renal dysfunction. No electrolyte abnormality noted at this time. Patient will likely need an outpatient urology evaluation. We will also place a consult to vascular for possible Vas-Cath in a.m. as patient likely will need dialysis. Anticipate that this will be a temporary dialysis but nevertheless we will leave from curtain stitcher. Urinalysis does show a mild UTI we will start the patient on ceftriaxone at this time. Plan discussed with combination machine tool setter the patient (1) Acute renal failure (ARF) Current Visit: Yes Status: Acute Qualifiers: Acute renal failure type: unspecified Qualified Code(s): N17.9 - Acute kidney failure, unspecified Plan to address problem: Nephrology note reviewed Rule out chronic kidney disease now progressing to end-stage renal disease CT of the abdomen pelvis results reviewed Status post right internal jugular tunneled vascular catheter placement For hemo-dialysis (2) Acute hyponatremia Current Visit: Yes Status: Acute Plan to address problem: Rule out volume overload secondary to GRAYSON versus ESRD Improving Monitor electrolytes (3) Dehydration Current Visit: Yes Status: Acute Plan to address problem: Secondary to the nausea and vomiting. continue on IV fluid. (4) NSTEMI (non-ST elevated myocardial infarction)-type II Current Visit: Yes Status: Acute Plan to address problem: Possibly secondary to the renal failure. Patient has denied any chest pain. Cardiology note reviewed (5) Nausea and vomiting in adult patient Current Visit: Yes Status: Acute Plan to address problem: Patient placed on IV Zofran as needed. (6) mild right-sided hydronephrosis with stones (7) acute cystitis Patient is on ceftriaxone UA reviewed (8) DVT prophylaxis Current Visit: Yes Status: Acute Plan to address problem: Patient placed on subcutaneous heparin. (9) Full code status Current Visit: Yes Status: Acute Plan to address problem: Patient is full code. Objective - Constitutional General appearance: Present: no acute distress, well-nourished - EENT Eyes: PERRL, EOM intact ENT: hearing intact, clear oral mucosa Ears: bilateral: normal - Neck Neck: supple, normal ROM - Respiratory Respiratory effort: normal Respiratory: bilateral: CTA - Cardiovascular Rhythm: regular Heart Sounds: Present: S1 & S2. Absent: gallop, rub Extremities: pulses intact, No edema, normal color, Full ROM - Gastrointestinal General gastrointestinal: Present: soft, non-tender Rectal Exam: deferred - Genitourinary Male genitourinary: deferred - Integumentary Integumentary: clear, warm - Neurologic Neurologic: no focal deficits, moves all extremities - Psychiatric Psychiatric: appropriate mood/affect - Labs CBC & Chem 7: 09/09/21 07:38 09/09/21 07:38 Labs: Abnormal lab results 09/08/21 09/08/21 09/08/21 Range/Units 15:50 15:50 15:50 Hgb (11.8-15.2) gm/dl Hct (35.5-45.6) % MCHC (32-34) % Sodium (137-145) mmol/L Chloride (98-107) mmol/L Carbon Dioxide (22-30) mmol/L BUN (9-20) mg/dL Creatinine (0.8-1.3) mg/dL Glucose (75-100) mg/dL Uric Acid 13.2 H (3.5-7.6) mg/dL Calcium (8.4-10.2) mg/dL Troponin T 0.188 H* (0.00-0.029) ng/mL PTH Intact 384.5 H (15-65) pg/mL 09/09/21 09/09/21 Range/Units 07:38 07:38 Hgb 11.5 L (11.8-15.2) gm/dl Hct 33.2 L (35.5-45.6) % MCHC 35 H (32-34) % Sodium 133 L (137-145) mmol/L Chloride 92.5 L (98-107) mmol/L Carbon Dioxide 16 L (22-30) mmol/L BUN 174 H (9-20) mg/dL Creatinine 21.3 H (0.8-1.3) mg/dL Glucose 113 H (75-100) mg/dL Uric Acid (3.5-7.6) mg/dL Calcium 7.4 L (8.4-10.2) mg/dL Troponin T 0.197 H* (0.00-0.029) ng/mL PTH Intact (15-65) pg/mL HEART Score - HEART Score Troponin: Troponin T 0.197 ng/mL (0.00-0.029) H* 09/09/21 07:38
[2021-09-09] MEDS: MORPHINE 4 MG/1 ML INJ IV PRN (21:42)
[2021-09-10] MEDS: HEPARIN 5,000 UNIT/1 ML VIAL SUB-Q SCH ×3 (05:53→21:02)
[2021-09-10 06:01] LABS: Basophils % (Auto) 0.6 % (0.0-1.8); Eosinophils # (Auto) 0.1 K/mm3 (0.0-0.4); Eosinophils % (Auto) 2.4 % (0.0-4.3); Hematocrit 34.8 % (35.5-45.6); Hemoglobin 11.9 gm/dl (11.8-15.2); Lymphocytes % (Auto) 17.4 % (13.4-35.0); Mean Corpuscular HGB Conc 34 % (32-34); Mean Corpuscular Volume 85 fl (84-94); Monocytes # (Auto) 0.8 K/mm3 (0.0-0.8); Monocytes % (Auto) 14.1 % (0.0-7.3); Platelet Count 290 K/mm3 (140-440); Red Blood Count 4.11 M/mm3 (3.65-5.03)
[2021-09-10 06:20] LABS: Calcium 7.5 mg/dL (8.4-10.2)
[2021-09-10] MEDS: SODIUM CHLORIDE 0.9% 1000 ML 1,000 ML IV SCH ×2 (09:41→23:16)
--- NOTE | 2021-09-10 09:48 | Progress Note ---
Subjective Date of service: 09/10/21 Principal diagnosis: grayson Interval history: #GRAYSON on likley adv CKD -ESRD, obstructive nephropathy continue renal replacement therapy today and daily until uremia resolved possibility of underlying chronic glomerulonephritis cannot be ruled out Patient does have bilateral echogenic kidneys, suggestive of chronic kidney disease will need outpatient hd unit placement #Mild right-sided hydronephrosis with stone, needs to see urology Patient does have bilateral echogenic kidney suggestive of chronic kidney disease, #Mild metabolic acidosis--give sodium bicarbonate #Mild hyponatremia #HTN #Mild hypocalcemia? Due to underlying chronic kidney disease bone mineral disorder secondary hyperparathyroidism vitamin D deficiency Need to establish etiology of hypercalcemia--follow up spep, immunofixation Subjective: labs and chart reviewed events noted Physical examination Vitals: Reviewed General: No acute distress HEENT: Oral mucosa moist no pallor or icterus Neck: Supple without any JVD thyromegaly or nodular mass Chest: Clear to auscultation Heart: Regular rate and rhythm S1-S2 heard no S3-S4 Abdomen: Soft nontender, bowel sounds present no renal bruit no suprapubic masses no CVA tenderness noted Extremity: Minimal edema dry skin no peripheral cyanosis Endocrine: Thyroid not enlarged Psychiatric: No agitation and aggression noted Musculoskeletal: No joint effusion noted Objective - Vital Signs Vital signs: Vital Signs - 12hr 09/09/21 09/09/21 09/09/21 22:00 22:31 23:18 Temperature 98.3 F Pulse Rate 65 Respiratory 18 Rate Blood Pressure 162/82 O2 Sat by Pulse 100 97 97 Oximetry 09/10/21 03:17 Temperature 98.0 F Pulse Rate 62 Respiratory 18 Rate Blood Pressure 144/74 O2 Sat by Pulse 90 Oximetry - Lab 09/10/21 04:57 09/10/21 04:57 Most recent lab results Calcium 7.5 mg/dL (8.4-10.2) L 09/10/21 04:57 Urine Creatinine 310.9 mg/dL (0.1-20.0) H 09/08/21 12:28 Urine Sodium 29 mmol/L 09/08/21 12:28 Urine Total Protein 111 mg/dL (5-11.8) H 09/08/21 12:28 Medications & Allergies - Medications Allergies/Adverse Reactions: Allergies No Known Allergies Allergy (Unverified 09/07/21 16:50) Active Medications: Generic Name Dose Route Start Last Admin Trade Name Freq PRN Reason Stop Dose Admin Acetaminophen 650 mg 09/07/21 22:17 Acetaminophen 325 Mg Tab PO Q4H PRN Pain MILD(1-3)/Fever >100.5/JOHNSON Heparin Sodium (Porcine) 5,000 unit 09/08/21 06:00 09/10/21 05:53 Heparin 5,000 Unit/1 Ml Vial SUB-Q 5,000 unit Q8HR MARK Administration Sodium Chloride 1,000 mls @ 125 mls/hr 09/07/21 22:45 09/10/21 09:41 Nacl 0.9% 1000 Ml IV 125 mls/hr DIRECT MARK Administration Ceftriaxone Sodium 1 gm in 50 mls @ 100 mls/hr 09/08/21 14:00 09/09/21 13:34 Rocephin/Ns 1 Gm/50 Ml IV 100 mls/hr Q24H MARK Administration Protocol Sodium Chloride 100 mls @ 999 mls/hr 09/09/21 10:10 Nacl 0.9% IV AYAH PRN Hypotension Magnesium Hydroxide 30 ml 09/07/21 22:42 Magnesium Hydroxide (Mom) Oral Liqd Udc PO Q4H PRN Constipation Morphine Sulfate 2 mg 09/07/21 22:42 Morphine 2 Mg/1 Ml Inj IV Q4H PRN Pain, Moderate (4-6) Morphine Sulfate 4 mg 09/07/21 22:42 09/09/21 21:42 Morphine 4 Mg/1 Ml Inj IV 4 mg Q4H PRN Administration Pain , Severe (7-10) Ondansetron HCl 4 mg 09/07/21 22:17 09/08/21 15:31 Ondansetron 4 Mg/2 Ml Inj IV 4 mg Q8H PRN Administration Nausea And Vomiting Sodium Chloride 10 ml 09/07/21 22:00 09/10/21 09:40 Sodium Chloride 0.9% 10 Ml Flush Syringe IV 10 ml BID MARK Administration Sodium Chloride 10 ml 09/07/21 21:45 Sodium Chloride 0.9% 10 Ml Flush Syringe IV PRN PRN LINE FLUSH
--- NOTE | 2021-09-10 11:01 | Progress Note ---
Assessment and Plan 40-year-old male who denies hypertension diabetes cholesterol states he was drinking too much on [place] '[place] and since then is been feeling weak and fatigued. Was smoking. Denies any drug use. States was recently incarcerated and released in July. Acute renal failure-nephrology follow NSTEMI type II Hyponatremia Echo 09/08/2021-EF 55 to 60%, borderline concentric LVH. Right ventricular systolic function is. Mild tricuspid regurgitation. IVC is normal in size and collapses greater than 50% with inspiration Plan: Patient had permacath yesterday and started on hemodialysis Troponins elevated likely due to acute renal failure patient denies chest pain Echo otherwise normal Cardiac status is stable. Will sign off Patient seen in conjunction with Dr. Hernandez who agrees with this plan of care - Patient Problems (1) Acute hyponatremia Current Visit: Yes Status: Acute (2) Acute renal failure (ARF) Current Visit: Yes Status: Acute Qualifiers: Acute renal failure type: unspecified Qualified Code(s): N17.9 - Acute kidney failure, unspecified (3) Dehydration Current Visit: Yes Status: Acute (4) NSTEMI (non-ST elevated myocardial infarction) Current Visit: Yes Status: Acute (5) Nausea and vomiting in adult patient Current Visit: Yes Status: Acute Subjective Date of service: 09/10/21 Principal diagnosis: jennifer Interval history: Patient resting in bed in no acute distress. Patient currently sinus 66 on monitor episodes of bradycardia overnight into the 50s Objective Vital Signs Temp Pulse Resp BP Pulse Ox Pulse Ox 09/10/21 08:30 97.9 F 62 20 133/78 94 09/10/21 03:17 98.0 F 62 18 144/74 90 09/09/21 23:18 97 09/09/21 22:31 98.3 F 65 18 162/82 97 09/09/21 22:00 100 09/09/21 19:10 98.3 F 62 16 149/82 96 09/09/21 18:00 62 09/09/21 17:05 98.4 F 53 L 18 175/94 98 09/09/21 17:00 56 L 163/87 09/09/21 16:45 59 L 153/85 09/09/21 16:30 57 L 152/82 09/09/21 16:15 67 139/80 09/09/21 16:00 64 145/73 09/09/21 15:45 60 150/85 09/09/21 15:30 73 148/81 09/09/21 15:15 51 L 152/86 09/09/21 15:00 53 L 160/88 09/09/21 14:45 55 L 155/87 09/09/21 14:30 56 L 153/84 09/09/21 14:20 98.4 F 56 L 20 146/83 98 09/09/21 14:00 100 - Physical Examination General: No Apparent Distress HEENT: Positive: PERRL, Mucus Membranes Moist Neck: Positive: neck supple, trachea midline Cardiac: Positive: Reg Rate and Rhythm Lungs: Positive: Normal Breath Sounds Neuro: Positive: Grossly Intact Abdomen: Positive: Soft, Active Bowel Sounds. Negative: Tender, Distended Skin: Positive: Clear Incision: Cardiac Cath Site Musculoskeletal: No Pain, Normal Range of Motion Extremities: Present: normal. Absent: edema - Labs and Meds CBC 09/10/21 Range/Units 04:57 WBC 5.7 (4.5-11.0) K/mm3 RBC 4.11 (3.65-5.03) M/mm3 Hgb 11.9 (11.8-15.2) gm/dl Hct 34.8 L (35.5-45.6) % Plt Count 290 (140-440) K/mm3 Lymph # (Auto) 1.0 L (1.2-5.4) K/mm3 Curry # (Auto) 0.8 (0.0-0.8) K/mm3 Eos # (Auto) 0.1 (0.0-0.4) K/mm3 Baso # (Auto) 0.0 (0.0-0.1) K/mm3 Comprehensive Metabolic Panel 09/10/21 Range/Units 04:57 Sodium 137 (137-145) mmol/L Potassium 4.1 (3.6-5.0) mmol/L Chloride 96.6 L (98-107) mmol/L Carbon Dioxide 19 L (22-30) mmol/L BUN 119 H (9-20) mg/dL Creatinine 17.9 H (0.8-1.3) mg/dL Glucose 98 (75-100) mg/dL Calcium 7.5 L (8.4-10.2) mg/dL - Imaging and Cardiology Echo: report reviewed - Telemetry EKG Rhythm: Sinus Rhythm - EKG Sinus rhythms and dysrhythmias: sinus rhythm
[2021-09-10] MEDS: ONDANSETRON 4 MG/2 ML INJ IV PRN ×2 (11:45→23:18)
[2021-09-10] MEDS: cefTRIAXone/NS 1 GM/50 ML 1 GM/50 ML BAG IV SCH (15:08)
--- NOTE | 2021-09-10 18:17 | Progress Note ---
Assessment and Plan Assessment and plan: 40-year-old -[place] male with no significant past medical history presents to the in the emergency room with acute onset of nausea and vomiting with accompanying lower back pain. He also indicates that he has been having generalized weakness over the past 1 week. Patient denies any fever or chills, denies any chest pain, no shortness of breath, no headache or dizziness and no diaphoresis. He has had some intermittent lower abdominal pain that radiates to the back. He denies any hematuria or dysuria. Patient denies any sick contacts and no recent travel. Denies any contact with anyone with COVID-19. Work-up in the emergency room today, significant findings when the labs with hyponatremia 129, BUN was 171 and creatinine of 19.9. Troponin of 0.174. Chest x-ray unremarkable. Renal ultrasound shows mild bilateral renal parenchymal thickening with echogenic kidneys. Mild right-sided hydronephrosis with stone disease. 09/08: Consulted cardiology to assist with management considering elevated troponin although this could be type II due to renal dysfunction. No electrolyte abnormality noted at this time. Patient will likely need an outpatient urology evaluation. We will also place a consult to vascular for possible Vas-Cath in a.m. as patient likely will need dialysis. Anticipate that this will be a temporary dialysis but nevertheless we will leave from central office trouble shooter. Urinalysis does show a mild UTI we will start the patient on ceftriaxone at this time. Plan discussed with crystallography teacher the patient 09/10/2021:Patient hemodialysis today. No complaints including no chest pains other than poor appetite. Persistent/flat troponins likely from a renal failure. Cardiology signed off. Patient needs outpatient dialysis arrangements, discussed this with CM. (1) Acute renal failure (ARF) Current Visit: Yes Status: Acute Qualifiers: Acute renal failure type: unspecified Qualified Code(s): N17.9 - Acute kidney failure, unspecified Plan to address problem: Nephrology note reviewed Rule out chronic kidney disease now progressing to end-stage renal disease CT of the abdomen pelvis results reviewed Status post right internal jugular tunneled vascular catheter placement For hemo-dialysis (2) Acute hyponatremia Current Visit: Yes Status: Acute Plan to address problem: Rule out volume overload secondary to GRAYSON versus ESRD Improving Monitor electrolytes (3) Dehydration Current Visit: Yes Status: Acute Plan to address problem: Secondary to the nausea and vomiting. continue on IV fluid. (4) NSTEMI (non-ST elevated myocardial infarction)-type II Current Visit: Yes Status: Acute Plan to address problem: Possibly secondary to the renal failure. Patient has denied any chest pain. Cardiology note reviewed (5) Nausea and vomiting in adult patient Current Visit: Yes Status: Acute Plan to address problem: Patient placed on IV Zofran as needed. (6) mild right-sided hydronephrosis with stones (7) acute cystitis Patient is on ceftriaxone UA reviewed (8) DVT prophylaxis Current Visit: Yes Status: Acute Plan to address problem: Patient placed on subcutaneous heparin. (9) Full code status Current Visit: Yes Status: Acute Plan to address problem: Patient is full code. History Interval history: Patient hemodialysis today. No complaints including no chest pains other than poor appetite. Persistent/flat troponins likely from a renal failure. Cardiology signed off. Patient needs outpatient dialysis arrangements and CM aware. Hospitalist Physical - Constitutional Vitals: Temp Pulse Resp BP Pulse Ox 98.3 F 56 L 20 141/85 96 09/10/21 15:33 09/10/21 15:33 09/10/21 15:33 09/10/21 15:33 09/10/21 15:33 General appearance: Present: no acute distress, well-nourished, other (Sluggish looking) - EENT Eyes: Present: PERRL, EOM intact ENT: hearing intact - Neck Neck: Present: supple - Respiratory Respiratory effort: normal Respiratory: bilateral: CTA - Cardiovascular Rhythm: regular - Extremities Extremities: No edema - Abdominal General gastrointestinal: soft, non-tender - Integumentary Integumentary: Absent: rash - Psychiatric Psychiatric: appropriate mood/affect - Neurologic Neurologic: moves all extremities HEART Score - HEART Score Troponin: Troponin T 0.197 ng/mL (0.00-0.029) H* 09/09/21 07:38 Results - Labs CBC & Chem 7: 09/10/21 04:57 09/10/21 04:57 Labs: Laboratory Last Values WBC 5.7 K/mm3 (4.5-11.0) 09/10/21 04:57 RBC 4.11 M/mm3 (3.65-5.03) 09/10/21 04:57 Hgb 11.9 gm/dl (11.8-15.2) 09/10/21 04:57 Hct 34.8 % (35.5-45.6) L 09/10/21 04:57 MCV 85 fl (84-94) 09/10/21 04:57 MCH 29 pg (28-32) 09/10/21 04:57 MCHC 34 % (32-34) 09/10/21 04:57 RDW 13.0 % (13.2-15.2) L 09/10/21 04:57 Plt Count 290 K/mm3 (140-440) 09/10/21 04:57 Lymph % (Auto) 17.4 % (13.4-35.0) 09/10/21 04:57 [place] % (Auto) 14.1 % (0.0-7.3) H 09/10/21 04:57 Eos % (Auto) 2.4 % (0.0-4.3) 09/10/21 04:57 Baso % (Auto) 0.6 % (0.0-1.8) 09/10/21 04:57 Lymph # (Auto) 1.0 K/mm3 (1.2-5.4) L 09/10/21 04:57 [place] # (Auto) 0.8 K/mm3 (0.0-0.8) 09/10/21 04:57 Eos # (Auto) 0.1 K/mm3 (0.0-0.4) 09/10/21 04:57 Baso # (Auto) 0.0 K/mm3 (0.0-0.1) 09/10/21 04:57 Seg Neutrophils % 65.5 % (40.0-70.0) 09/10/21 04:57 Seg Neutrophils # 3.7 K/mm3 (1.8-7.7) 09/10/21 04:57 Sodium 137 mmol/L (137-145) 09/10/21 04:57 Potassium 4.1 mmol/L (3.6-5.0) 09/10/21 04:57 Chloride 96.6 mmol/L (98-107) L 09/10/21 04:57 Carbon Dioxide 19 mmol/L (22-30) L 09/10/21 04:57 Anion Gap 26 mmol/L 09/10/21 04:57 BUN 119 mg/dL (9-20) H 09/10/21 04:57 Creatinine 17.9 mg/dL (0.8-1.3) H 09/10/21 04:57 Estimated GFR 4 ml/min 09/10/21 04:57 BUN/Creatinine Ratio 7 % 09/10/21 04:57 Glucose 98 mg/dL (75-100) 09/10/21 04:57 Uric Acid 13.2 mg/dL (3.5-7.6) H 09/08/21 15:50 Calcium 7.5 mg/dL (8.4-10.2) L 09/10/21 04:57 Total Bilirubin 0.30 mg/dL (0.1-1.2) 09/07/21 19:51 AST 33 units/L (5-40) 09/07/21 19:51 ALT 123 units/L (7-56) H 09/07/21 19:51 Alkaline Phosphatase 49 units/L (35-129) 09/07/21 19:51 Troponin T 0.197 ng/mL (0.00-0.029) H* 09/09/21 07:38 Total Protein 7.1 g/dL (6.3-8.2) 09/07/21 19:51 Albumin 3.7 g/dL (3.9-5) L 09/07/21 19:51 Albumin/Globulin Ratio 1.1 % 09/07/21 19:51 Triglycerides 220 mg/dL (2-149) H 09/07/21 20:51 Cholesterol 194 mg/dL (50-199) 09/07/21 20:51 LDL Cholesterol Direct 108 mg/dL (50-130) 09/07/21 20:51 HDL Cholesterol 46 mg/dL (40-59) 09/07/21 20:51 Cholesterol/HDL Ratio 4.21 % 09/07/21 20:51 PTH Intact 400.7 pg/mL (15-65) H 09/09/21 14:56 Urine Color Yellow (Yellow) 09/08/21 11:46 Urine Turbidity Slightly-cloudy (Clear) 09/08/21 11:46 Urine pH 5.0 (5.0-7.0) 09/08/21 11:46 Ur Specific [place] 1.014 (1.003-1.030) 09/08/21 11:46 Urine Protein 100 mg/dl mg/dL (Negative) 09/08/21 11:46 Urine Glucose (UA) 50 mg/dL (Negative) 09/08/21 11:46 Urine Ketones Neg mg/dL (Negative) 09/08/21 11:46 Urine Blood Lg (Negative) 09/08/21 11:46 Urine Nitrite Neg (Negative) 09/08/21 11:46 Urine Bilirubin Neg (Negative) 09/08/21 11:46 Urine Urobilinogen < 2.0 mg/dL (<2.0) 09/08/21 11:46 Ur Leukocyte Esterase Sm (Negative) 09/08/21 11:46 Urine WBC (Auto) 20.0 /HPF (0.0-6.0) H 09/08/21 11:46 Urine RBC (Auto) 3.0 /HPF (0.0-6.0) 09/08/21 11:46 U Epithel Cells (Auto) 1.0 /HPF (0-13.0) 09/08/21 11:46 Urine Bacteria (Auto) 1+ /HPF (Negative) 09/08/21 11:46 Urine Mucus Few /HPF 09/08/21 11:46 Urine Creatinine 310.9 mg/dL (0.1-20.0) H 09/08/21 12:28 Urine Sodium 29 mmol/L 09/08/21 12:28 Urine Total Protein 111 mg/dL (5-11.8) H 09/08/21 12:28 SARS-CoV-2 (PCR) Negative (Negative) 09/09/21 10:06 Hepatitis A IgM Ab Non-reactive (NonReactive) 09/08/21 15:50 Hep Bs Antigen Nonreactive (Negative) 09/08/21 15:50 Hep B Core IgM Ab Non-reactive (NonReactive) 09/08/21 15:50 Hepatitis C Antibody Non-reactive (NonReactive) 09/08/21 15:50 Microbiology: Microbiology 09/08/21 11:46 Urine,Clean Catch Urine Culture - Final Active Medications - Current Medications Current Medications: Generic Name Dose Route Start Last Admin Trade Name Freq PRN Reason Stop Dose Admin Acetaminophen 650 mg 09/07/21 22:17 Acetaminophen 325 Mg Tab PO Q4H PRN Pain MILD(1-3)/Fever >100.5/JOHNSON Heparin Sodium (Porcine) 5,000 unit 09/08/21 06:00 09/10/21 15:09 Heparin 5,000 Unit/1 Ml Vial SUB-Q 5,000 unit Q8HR MARK Administration Sodium Chloride 1,000 mls @ 125 mls/hr 09/07/21 22:45 09/10/21 09:41 Nacl 0.9% 1000 Ml IV 125 mls/hr DIRECT MARK Administration Ceftriaxone Sodium 1 gm in 50 mls @ 100 mls/hr 09/08/21 14:00 09/10/21 15:08 Rocephin/Ns 1 Gm/50 Ml IV 09/12/21 14:29 100 mls/hr Q24H MARK Administration Protocol Sodium Chloride 100 mls @ 999 mls/hr 09/09/21 10:10 Nacl 0.9% IV AYAH PRN Hypotension Magnesium Hydroxide 30 ml 09/07/21 22:42 Magnesium Hydroxide (Mom) Oral Liqd Udc PO Q4H PRN Constipation Morphine Sulfate 2 mg 09/07/21 22:42 Morphine 2 Mg/1 Ml Inj IV Q4H PRN Pain, Moderate (4-6) Morphine Sulfate 4 mg 09/07/21 22:42 09/09/21 21:42 Morphine 4 Mg/1 Ml Inj IV 4 mg Q4H PRN Administration Pain , Severe (7-10) Ondansetron HCl 4 mg 09/07/21 22:17 09/10/21 11:45 Ondansetron 4 Mg/2 Ml Inj IV 4 mg Q8H PRN Administration Nausea And Vomiting Sodium Chloride 10 ml 09/07/21 22:00 09/10/21 09:40 Sodium Chloride 0.9% 10 Ml Flush Syringe IV 10 ml BID MARK Administration Sodium Chloride 10 ml 09/07/21 21:45 09/10/21 15:09 Sodium Chloride 0.9% 10 Ml Flush Syringe IV 10 ml PRN PRN Administration LINE FLUSH
[2021-09-10] MEDS: ACETAMINOPHEN 325 MG TAB PO PRN (18:26)
[2021-09-10] MEDS: MORPHINE 4 MG/1 ML INJ IV PRN (21:03)
[2021-09-11] MEDS: HEPARIN 5,000 UNIT/1 ML VIAL SUB-Q SCH ×3 (06:17→21:35)
[2021-09-11 06:24] LABS: Calcium 7.2 mg/dL (8.4-10.2)
[2021-09-11 07:03] LABS: Uric Acid 6.1 mg/dL (3.5-7.6)
[2021-09-11] MEDS: SODIUM CHLORIDE 0.9% 1000 ML 1,000 ML IV SCH (07:30)
--- NOTE | 2021-09-11 08:36 | Electrocardiograph Report ---
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
--- NOTE | 2021-09-11 10:12 | Progress Note ---
Subjective Date of service: 09/11/21 Principal diagnosis: grayson Interval history: #GRAYSON on likley adv CKD -ESRD, obstructive nephropathy continue renal replacement therapy today and daily until uremia resolved possibility of underlying chronic glomerulonephritis cannot be ruled out Patient does have bilateral echogenic kidneys, suggestive of chronic kidney disease will need outpatient hd unit placement #Mild right-sided hydronephrosis with stone, needs to see urology Patient does have bilateral echogenic kidney suggestive of chronic kidney disease, #Mild metabolic acidosis--give sodium bicarbonate #Mild hyponatremia #HTN #Mild hypocalcemia? Due to underlying chronic kidney disease bone mineral disorder secondary hyperparathyroidism vitamin D deficiency added calcitriol ok to dc once outpatient clinic arranged Subjective: labs and chart reviewed events noted Physical examination Vitals: Reviewed General: No acute distress HEENT: Oral mucosa moist no pallor or icterus Neck: Supple without any JVD thyromegaly or nodular mass Chest: Clear to auscultation Heart: Regular rate and rhythm S1-S2 heard no S3-S4 Abdomen: Soft nontender, bowel sounds present no renal bruit no suprapubic masses no CVA tenderness noted Extremity: Minimal edema dry skin no peripheral cyanosis Endocrine: Thyroid not enlarged Psychiatric: No agitation and aggression noted Musculoskeletal: No joint effusion noted Objective - Vital Signs Vital signs: Vital Signs - 12hr 09/11/21 09/11/21 09/11/21 03:16 08:09 08:30 Temperature 98.8 F 98.6 F Pulse Rate 60 63 Respiratory 16 18 Rate Blood Pressure 144/82 152/83 O2 Sat by Pulse 94 93 96 Oximetry - Lab 09/10/21 04:57 09/11/21 04:43 Most recent lab results Calcium 7.2 mg/dL (8.4-10.2) L 09/11/21 04:43 Phosphorus 6.80 mg/dL (2.5-4.5) H 09/11/21 05:40 Urine Creatinine 310.9 mg/dL (0.1-20.0) H 09/08/21 12:28 Urine Sodium 29 mmol/L 09/08/21 12:28 Urine Total Protein 111 mg/dL (5-11.8) H 09/08/21 12:28 Medications & Allergies - Medications Allergies/Adverse Reactions: Allergies No Known Allergies Allergy (Verified 09/10/21 10:04) Home Medications: Home Medications Medication Instructions Recorded Confirmed Last Taken Type No Known Home Medications [No 09/10/21 09/10/21 Unknown History Reported Home Medications] Active Medications: Generic Name Dose Route Start Last Admin Trade Name Kya PRN Reason Stop Dose Admin Acetaminophen 650 mg 09/07/21 22:17 09/10/21 18:26 Acetaminophen 325 Mg Tab PO 650 mg Q4H PRN Administration Pain MILD(1-3)/Fever >100.5/JOHNSON Heparin Sodium (Porcine) 5,000 unit 09/08/21 06:00 09/11/21 06:17 Heparin 5,000 Unit/1 Ml Vial SUB-Q Not Given Q8HR MARK Sodium Chloride 1,000 mls @ 125 mls/hr 09/07/21 22:45 09/11/21 07:30 Nacl 0.9% 1000 Ml IV 125 mls/hr DIRECT MARK Administration Ceftriaxone Sodium 1 gm in 50 mls @ 100 mls/hr 09/08/21 14:00 09/10/21 15:08 Rocephin/Ns 1 Gm/50 Ml IV 09/12/21 14:29 100 mls/hr Q24H MARK Administration Protocol Sodium Chloride 100 mls @ 999 mls/hr 09/09/21 10:10 Nacl 0.9% IV AYAH PRN Hypotension Magnesium Hydroxide 30 ml 09/07/21 22:42 Magnesium Hydroxide (Mom) Oral Liqd Udc PO Q4H PRN Constipation Morphine Sulfate 2 mg 09/07/21 22:42 Morphine 2 Mg/1 Ml Inj IV Q4H PRN Pain, Moderate (4-6) Morphine Sulfate 4 mg 09/07/21 22:42 09/10/21 21:03 Morphine 4 Mg/1 Ml Inj IV 4 mg Q4H PRN Administration Pain , Severe (7-10) Ondansetron HCl 4 mg 09/07/21 22:17 09/10/21 23:18 Ondansetron 4 Mg/2 Ml Inj IV 4 mg Q8H PRN Administration Nausea And Vomiting Sodium Chloride 10 ml 09/07/21 22:00 09/10/21 21:04 Sodium Chloride 0.9% 10 Ml Flush Syringe IV 10 ml BID MARK Administration Sodium Chloride 10 ml 09/07/21 21:45 09/10/21 15:09 Sodium Chloride 0.9% 10 Ml Flush Syringe IV 10 ml PRN PRN Administration LINE FLUSH
[2021-09-11] MEDS: CALCITRIOL 0.5 MCG CAP PO SCH (11:49)
[2021-09-11] MEDS: cefTRIAXone/NS 1 GM/50 ML 1 GM/50 ML BAG IV SCH (14:27)
--- NOTE | 2021-09-11 17:52 | Progress Note ---
Assessment and Plan Assessment and plan: 40-year-old -[place] male with no significant past medical history presents to the in the emergency room with acute onset of nausea and vomiting with accompanying lower back pain. He also indicates that he has been having generalized weakness over the past 1 week. Patient denies any fever or chills, denies any chest pain, no shortness of breath, no headache or dizziness and no diaphoresis. He has had some intermittent lower abdominal pain that radiates to the back. He denies any hematuria or dysuria. Patient denies any sick contacts and no recent travel. Denies any contact with anyone with COVID-19. Work-up in the emergency room today, significant findings when the labs with hyponatremia 129, BUN was 171 and creatinine of 19.9. Troponin of 0.174. Chest x-ray unremarkable. Renal ultrasound shows mild bilateral renal parenchymal thickening with echogenic kidneys. Mild right-sided hydronephrosis with stone disease. (1) GRAYSON on CKD, initiated hemodialysis Current Visit: Yes Status: Acute Qualifiers: Acute renal failure type: unspecified Qualified Code(s): N17.9 - Acute kidney failure, unspecified Plan to address problem: Nephrology note reviewed Likely chronic kidney disease now progressing to end-stage renal disease Status post right internal jugular tunneled vascular catheter placement Receiving scheduled hemodialysis Creatinine is progress improving but nephrology feels he likely has ESRD and recommends outpatient dialysis arrangements. (2) Acute hyponatremia Current Visit: Yes Status: Acute Plan to address problem: Rule out volume overload secondary to GRAYSON versus ESRD Improving Monitor electrolytes (4) elevated troponins in the setting of renal failure Current Visit: Yes Status: Acute Plan to address problem: Possibly secondary to the renal failure. Patient has denied any chest pain. Cardiology evaluated and signed off (5) Nausea and vomiting in adult patient Current Visit: Yes Status: Acute Plan to address problem: Patient placed on IV Zofran as needed. Possibly from uremia and narcotics. Avoid all narcotic pain meds. (6) mild right-sided hydronephrosis with stones Will need urology evaluation (7) acute cystitis Started on Rocephin (8) DVT prophylaxis Current Visit: Yes Status: Acute Plan to address problem: Patient placed on subcutaneous heparin. Discussed with the case management. History Interval history: Patient remains clinically stable and undergoing scheduled dialysis, patient reports significant nausea with eating, needs outpatient dialysis arrangements and CM aware. Hospitalist Physical - Constitutional Vitals: Temp Pulse Resp BP Pulse Ox 97.9 F 59 L 18 195/98 100 09/11/21 16:00 09/11/21 17:00 09/11/21 16:00 09/11/21 17:00 09/11/21 16:00 General appearance: Present: no acute distress, well-nourished, other (Sluggish looking) - EENT Eyes: Present: PERRL, EOM intact ENT: clear oral mucosa - Neck Neck: Present: supple - Respiratory Respiratory effort: normal Respiratory: bilateral: CTA - Cardiovascular Rhythm: regular - Extremities Extremities: No edema - Abdominal General gastrointestinal: soft, non-tender, non-distended - Integumentary Integumentary: Absent: rash - Psychiatric Psychiatric: appropriate mood/affect - Neurologic Neurologic: no focal deficits, moves all extremities HEART Score - HEART Score Troponin: Troponin T 0.197 ng/mL (0.00-0.029) H* 09/09/21 07:38 Results - Labs CBC & Chem 7: 09/13/21 13:39 09/13/21 13:39 Labs: Laboratory Last Values WBC 5.7 K/mm3 (4.5-11.0) 09/10/21 04:57 RBC 4.11 M/mm3 (3.65-5.03) 09/10/21 04:57 Hgb 11.9 gm/dl (11.8-15.2) 09/10/21 04:57 Hct 34.8 % (35.5-45.6) L 09/10/21 04:57 MCV 85 fl (84-94) 09/10/21 04:57 MCH 29 pg (28-32) 09/10/21 04:57 MCHC 34 % (32-34) 09/10/21 04:57 RDW 13.0 % (13.2-15.2) L 09/10/21 04:57 Plt Count 290 K/mm3 (140-440) 09/10/21 04:57 Lymph % (Auto) 17.4 % (13.4-35.0) 09/10/21 04:57 [place] % (Auto) 14.1 % (0.0-7.3) H 09/10/21 04:57 Eos % (Auto) 2.4 % (0.0-4.3) 09/10/21 04:57 Baso % (Auto) 0.6 % (0.0-1.8) 09/10/21 04:57 Lymph # (Auto) 1.0 K/mm3 (1.2-5.4) L 09/10/21 04:57 [place] # (Auto) 0.8 K/mm3 (0.0-0.8) 09/10/21 04:57 Eos # (Auto) 0.1 K/mm3 (0.0-0.4) 09/10/21 04:57 Baso # (Auto) 0.0 K/mm3 (0.0-0.1) 09/10/21 04:57 Seg Neutrophils % 65.5 % (40.0-70.0) 09/10/21 04:57 Seg Neutrophils # 3.7 K/mm3 (1.8-7.7) 09/10/21 04:57 Sodium 141 mmol/L (137-145) 09/11/21 04:43 Potassium 3.8 mmol/L (3.6-5.0) 09/11/21 04:43 Chloride 104.4 mmol/L (98-107) 09/11/21 04:43 Carbon Dioxide 20 mmol/L (22-30) L 09/11/21 04:43 Anion Gap 20 mmol/L 09/11/21 04:43 BUN 73 mg/dL (9-20) H 09/11/21 04:43 Creatinine 13.9 mg/dL (0.8-1.3) H 09/11/21 04:43 Estimated GFR 5 ml/min 09/11/21 04:43 BUN/Creatinine Ratio 5 % 09/11/21 04:43 Glucose 87 mg/dL (75-100) 09/11/21 04:43 Uric Acid 6.1 mg/dL (3.5-7.6) D 09/11/21 05:40 Calcium 7.2 mg/dL (8.4-10.2) L 09/11/21 04:43 Phosphorus 6.80 mg/dL (2.5-4.5) H 09/11/21 05:40 Total Bilirubin 0.30 mg/dL (0.1-1.2) 09/07/21 19:51 AST 33 units/L (5-40) 09/07/21 19:51 ALT 123 units/L (7-56) H 09/07/21 19:51 Alkaline Phosphatase 49 units/L (35-129) 09/07/21 19:51 Troponin T 0.197 ng/mL (0.00-0.029) H* 09/09/21 07:38 Total Protein 7.1 g/dL (6.3-8.2) 09/07/21 19:51 Albumin 3.7 g/dL (3.9-5) L 09/07/21 19:51 Albumin/Globulin Ratio 1.1 % 09/07/21 19:51 Triglycerides 220 mg/dL (2-149) H 09/07/21 20:51 Cholesterol 194 mg/dL (50-199) 09/07/21 20:51 LDL Cholesterol Direct 108 mg/dL (50-130) 09/07/21 20:51 HDL Cholesterol 46 mg/dL (40-59) 09/07/21 20:51 Cholesterol/HDL Ratio 4.21 % 09/07/21 20:51 PTH Intact 400.7 pg/mL (15-65) H 09/09/21 14:56 Urine Color Yellow (Yellow) 09/08/21 11:46 Urine Turbidity Slightly-cloudy (Clear) 09/08/21 11:46 Urine pH 5.0 (5.0-7.0) 09/08/21 11:46 Ur Specific [place] 1.014 (1.003-1.030) 09/08/21 11:46 Urine Protein 100 mg/dl mg/dL (Negative) 09/08/21 11:46 Urine Glucose (UA) 50 mg/dL (Negative) 09/08/21 11:46 Urine Ketones Neg mg/dL (Negative) 09/08/21 11:46 Urine Blood Lg (Negative) 09/08/21 11:46 Urine Nitrite Neg (Negative) 09/08/21 11:46 Urine Bilirubin Neg (Negative) 09/08/21 11:46 Urine Urobilinogen < 2.0 mg/dL (<2.0) 09/08/21 11:46 Ur Leukocyte Esterase Sm (Negative) 09/08/21 11:46 Urine WBC (Auto) 20.0 /HPF (0.0-6.0) H 09/08/21 11:46 Urine RBC (Auto) 3.0 /HPF (0.0-6.0) 09/08/21 11:46 U Epithel Cells (Auto) 1.0 /HPF (0-13.0) 09/08/21 11:46 Urine Bacteria (Auto) 1+ /HPF (Negative) 09/08/21 11:46 Urine Mucus Few /HPF 09/08/21 11:46 Urine Creatinine 310.9 mg/dL (0.1-20.0) H 09/08/21 12:28 Urine Sodium 29 mmol/L 09/08/21 12:28 Urine Total Protein 111 mg/dL (5-11.8) H 09/08/21 12:28 SARS-CoV-2 (PCR) Negative (Negative) 09/09/21 10:06 Hepatitis A IgM Ab Non-reactive (NonReactive) 09/08/21 15:50 Hep Bs Antigen Nonreactive (Negative) 09/08/21 15:50 Hep B Core IgM Ab Non-reactive (NonReactive) 09/08/21 15:50 Hepatitis C Antibody Non-reactive (NonReactive) 09/08/21 15:50 Microbiology: Microbiology 09/08/21 11:46 Urine,Clean Catch Urine Culture - Final Hirsch/IV: Voiding Method Toilet Active Medications - Current Medications Current Medications: Generic Name Dose Route Start Last Admin Trade Name Freq PRN Reason Stop Dose Admin Acetaminophen 650 mg 09/07/21 22:17 09/10/21 18:26 Acetaminophen 325 Mg Tab PO 650 mg Q4H PRN Administration Pain MILD(1-3)/Fever >100.5/JOHNSON Calcitriol 0.5 mcg 09/11/21 11:00 09/11/21 11:49 Calcitriol 0.5 Mcg Cap PO 0.5 mcg QDAY MARK Administration Heparin Sodium (Porcine) 5,000 unit 09/08/21 06:00 09/11/21 14:30 Heparin 5,000 Unit/1 Ml Vial SUB-Q Not Given Q8HR MARK Sodium Chloride 1,000 mls @ 125 mls/hr 09/07/21 22:45 09/11/21 07:30 Nacl 0.9% 1000 Ml IV 125 mls/hr DIRECT MARK Administration Ceftriaxone Sodium 1 gm in 50 mls @ 100 mls/hr 09/08/21 14:00 09/11/21 14:27 Rocephin/Ns 1 Gm/50 Ml IV 09/12/21 14:29 100 mls/hr Q24H MARK Administration Protocol Sodium Chloride 100 mls @ 999 mls/hr 09/09/21 10:10 Nacl 0.9% IV AYAH PRN Hypotension Morphine Sulfate 2 mg 09/07/21 22:42 Morphine 2 Mg/1 Ml Inj IV Q4H PRN Pain, Moderate (4-6) Morphine Sulfate 4 mg 09/07/21 22:42 09/10/21 21:03 Morphine 4 Mg/1 Ml Inj IV 4 mg Q4H PRN Administration Pain , Severe (7-10) Ondansetron HCl 4 mg 09/07/21 22:17 09/10/21 23:18 Ondansetron 4 Mg/2 Ml Inj IV 4 mg Q8H PRN Administration Nausea And Vomiting Sodium Chloride 10 ml 09/07/21 22:00 09/11/21 11:49 Sodium Chloride 0.9% 10 Ml Flush Syringe IV 10 ml BID MARK Administration Sodium Chloride 10 ml 09/07/21 21:45 09/10/21 15:09 Sodium Chloride 0.9% 10 Ml Flush Syringe IV 10 ml PRN PRN Administration LINE FLUSH
[2021-09-11] MEDS: ONDANSETRON 4 MG/2 ML INJ IV PRN (18:00)
[2021-09-11] MEDS: MORPHINE 4 MG/1 ML INJ IV PRN (21:35)
[2021-09-12] MEDS: SODIUM CHLORIDE 0.9% 1000 ML 1,000 ML IV SCH (00:16)
[2021-09-12] MEDS: hydrALAZINE 20 MG/1 ML INJ IV PRN (00:53)
[2021-09-12] MEDS: HEPARIN 5,000 UNIT/1 ML VIAL SUB-Q SCH ×3 (05:01→22:30)
[2021-09-12 05:13] LABS: Basophils # (Auto) 0.1 K/mm3 (0.0-0.1); Basophils % (Auto) 0.8 % (0.0-1.8); Eosinophils # (Auto) 0.1 K/mm3 (0.0-0.4); Eosinophils % (Auto) 1.2 % (0.0-4.3); Hematocrit 36.1 % (35.5-45.6); Hemoglobin 12.3 gm/dl (11.8-15.2); Lymphocytes # (Auto) 0.8 K/mm3 (1.2-5.4); Lymphocytes % (Auto) 12.3 % (13.4-35.0); Mean Corpuscular HGB Conc 34 % (32-34); Mean Corpuscular Volume 85 fl (84-94); Monocytes # (Auto) 0.8 K/mm3 (0.0-0.8); Monocytes % (Auto) 12.1 % (0.0-7.3); Platelet Count 296 K/mm3 (140-440); Red Blood Count 4.24 M/mm3 (3.65-5.03)
[2021-09-12 05:42] LABS: Calcium 8.1 mg/dL (8.4-10.2)
--- NOTE | 2021-09-12 09:53 | Progress Note ---
Subjective Date of service: 09/12/21 Principal diagnosis: grayson Interval history: #GRAYSON on likley adv CKD -ESRD, obstructive nephropathy continue renal replacement therapy today and daily until uremia resolved then MW possibility of underlying chronic glomerulonephritis cannot be ruled out Patient does have bilateral echogenic kidneys, suggestive of chronic kidney disease will need outpatient hd unit placement #Mild right-sided hydronephrosis with stone, needs to see urology Patient does have bilateral echogenic kidney suggestive of chronic kidney disease, #Mild metabolic acidosis--give sodium bicarbonate #Mild hyponatremia #HTN #Mild hypocalcemia? Due to underlying chronic kidney disease bone mineral disorder secondary hyperparathyroidism vitamin D deficiency added calcitriol ok to dc once outpatient clinic arranged Subjective: labs and chart reviewed events noted Physical examination Vitals: Reviewed General: No acute distress HEENT: Oral mucosa moist no pallor or icterus Neck: Supple without any JVD thyromegaly or nodular mass Chest: Clear to auscultation Heart: Regular rate and rhythm S1-S2 heard no S3-S4 Abdomen: Soft nontender, bowel sounds present no renal bruit no suprapubic masses no CVA tenderness noted Extremity: Minimal edema dry skin no peripheral cyanosis Endocrine: Thyroid not enlarged Psychiatric: No agitation and aggression noted Musculoskeletal: No joint effusion noted Objective - Vital Signs Vital signs: Vital Signs - 12hr 09/11/21 09/11/21 09/12/21 23:18 23:41 00:26 Temperature 98.0 F Pulse Rate 70 Respiratory 18 Rate Blood Pressure 184/93 O2 Sat by Pulse 96 96 Oximetry 09/12/21 09/12/21 09/12/21 03:25 08:04 08:26 Temperature 98.9 F 98.6 F Pulse Rate 80 62 Respiratory 18 18 Rate Blood Pressure 134/81 158/86 O2 Sat by Pulse 89 93 96 Oximetry - Lab 09/12/21 04:44 09/12/21 04:44 Most recent lab results Calcium 8.1 mg/dL (8.4-10.2) L 09/12/21 04:44 Phosphorus 6.80 mg/dL (2.5-4.5) H 09/11/21 05:40 Urine Creatinine 310.9 mg/dL (0.1-20.0) H 09/08/21 12:28 Urine Sodium 29 mmol/L 09/08/21 12:28 Urine Total Protein 111 mg/dL (5-11.8) H 09/08/21 12:28 Medications & Allergies - Medications Allergies/Adverse Reactions: Allergies No Known Allergies Allergy (Verified 09/10/21 10:04) Home Medications: Home Medications Medication Instructions Recorded Confirmed Last Taken Type No Known Home Medications [No 09/10/21 09/10/21 Unknown History Reported Home Medications] Active Medications: Generic Name Dose Route Start Last Admin Trade Name Freq PRN Reason Stop Dose Admin Acetaminophen 650 mg 09/07/21 22:17 09/10/21 18:26 Acetaminophen 325 Mg Tab PO 650 mg Q4H PRN Administration Pain MILD(1-3)/Fever >100.5/JOHNSON Calcitriol 0.5 mcg 09/11/21 11:00 09/11/21 11:49 Calcitriol 0.5 Mcg Cap PO 0.5 mcg QDAY MARK Administration Heparin Sodium (Porcine) 5,000 unit 09/08/21 06:00 09/12/21 05:01 Heparin 5,000 Unit/1 Ml Vial SUB-Q 5,000 unit Q8HR MARK Administration Hydralazine HCl 10 mg 09/12/21 00:41 09/12/21 00:53 Hydralazine 20 Mg/1 Ml Inj IV 10 mg Q6H PRN Administration Hypertension Sodium Chloride 1,000 mls @ 125 mls/hr 09/07/21 22:45 09/12/21 00:16 Nacl 0.9% 1000 Ml IV 125 mls/hr DIRECT MARK Administration Ceftriaxone Sodium 1 gm in 50 mls @ 100 mls/hr 09/08/21 14:00 09/11/21 14:27 Rocephin/Ns 1 Gm/50 Ml IV 09/12/21 14:29 100 mls/hr Q24H MARK Administration Protocol Sodium Chloride 100 mls @ 999 mls/hr 09/09/21 10:10 Nacl 0.9% IV AYAH PRN Hypotension Morphine Sulfate 2 mg 09/07/21 22:42 Morphine 2 Mg/1 Ml Inj IV Q4H PRN Pain, Moderate (4-6) Morphine Sulfate 4 mg 09/07/21 22:42 09/11/21 21:35 Morphine 4 Mg/1 Ml Inj IV 4 mg Q4H PRN Administration Pain , Severe (7-10) Ondansetron HCl 4 mg 09/07/21 22:17 09/11/21 18:00 Ondansetron 4 Mg/2 Ml Inj IV 4 mg Q8H PRN Administration Nausea And Vomiting Sodium Chloride 10 ml 09/07/21 22:00 09/11/21 21:35 Sodium Chloride 0.9% 10 Ml Flush Syringe IV 10 ml BID MARK Administration Sodium Chloride 10 ml 09/07/21 21:45 09/10/21 15:09 Sodium Chloride 0.9% 10 Ml Flush Syringe IV 10 ml PRN PRN Administration LINE FLUSH
[2021-09-12] MEDS ORDERED: SODIUM CHLORIDE 0.9% 100 ML IV PRN (10:00)
[2021-09-12] MEDS: CALCITRIOL 0.5 MCG CAP PO SCH (10:16)
[2021-09-12] MEDS: ONDANSETRON 4 MG/2 ML INJ IV PRN ×2 (10:16→15:16)
[2021-09-12] MEDS: MORPHINE 4 MG/1 ML INJ IV PRN ×2 (10:16→15:16)
[2021-09-12 14:24] LABS: Vitamin D, 25-OH, D2 <4 ng/mL
[2021-09-12] MEDS: cefTRIAXone/NS 1 GM/50 ML 1 GM/50 ML BAG IV SCH (14:55)
--- NOTE | 2021-09-12 20:37 | Progress Note ---
Assessment and Plan Assessment and plan: 40-year-old -[place] male with no significant past medical history presents to the in the emergency room with acute onset of nausea and vomiting with accompanying lower back pain. He also indicates that he has been having generalized weakness over the past 1 week. Patient denies any fever or chills, denies any chest pain, no shortness of breath, no headache or dizziness and no diaphoresis. He has had some intermittent lower abdominal pain that radiates to the back. He denies any hematuria or dysuria. Patient denies any sick contacts and no recent travel. Denies any contact with anyone with COVID-19. Work-up in the emergency room today, significant findings when the labs with hyponatremia 129, BUN was 171 and creatinine of 19.9. Troponin of 0.174. Chest x-ray unremarkable. Renal ultrasound shows mild bilateral renal parenchymal thickening with echogenic kidneys. Mild right-sided hydronephrosis with stone disease. (1) GRAYSON on CKD, initiated hemodialysis Current Visit: Yes Status: Acute Qualifiers: Acute renal failure type: unspecified Qualified Code(s): N17.9 - Acute kidney failure, unspecified Plan to address problem: Nephrology note reviewed Likely chronic kidney disease now progressing to end-stage renal disease Status post right internal jugular tunneled vascular catheter placement Receiving scheduled hemodialysis Creatinine is progress improving but nephrology feels he likely has ESRD and recommends outpatient dialysis arrangements. (2) Acute hyponatremia Current Visit: Yes Status: Acute Plan to address problem: Rule out volume overload secondary to GRAYSON versus ESRD Improving Monitor electrolytes (4) elevated troponins in the setting of renal failure Current Visit: Yes Status: Acute Plan to address problem: Possibly secondary to the renal failure. Patient has denied any chest pain. Cardiology evaluated and signed off (5) Nausea and vomiting in adult patient Current Visit: Yes Status: Acute Plan to address problem: Unable to eat due to persistent nausea patient placed on IV Zofran as needed. Possibly from uremia and narcotics. Avoid all narcotic pain meds. will give a trial of scopolamine (6) mild right-sided hydronephrosis with stones Will need urology evaluation (7) acute cystitis Treated with Rocephin (8) DVT prophylaxis Current Visit: Yes Status: Acute Plan to address problem: Patient placed on subcutaneous heparin. Discharge disposition: Nephrology recommending outpatient dialysis arrangements, discussed with the case management. History Interval history: Patient remains clinically stable and undergoing scheduled dialysis, patient reports significant nausea with eating, needs outpatient dialysis arrangements and CM aware. Hospitalist Physical - Constitutional Vitals: Temp Pulse Resp BP Pulse Ox 98.8 F 64 18 144/80 97 09/12/21 19:17 09/12/21 19:49 09/12/21 19:17 09/12/21 19:49 09/12/21 19:49 General appearance: Present: no acute distress, well-nourished, other (Sluggish looking) - EENT Eyes: Present: PERRL, EOM intact ENT: hearing intact, clear oral mucosa - Neck Neck: Present: supple - Respiratory Respiratory effort: normal Respiratory: bilateral: CTA - Cardiovascular Rhythm: regular - Extremities Extremities: No edema - Abdominal General gastrointestinal: soft, non-tender, non-distended - Integumentary Integumentary: Absent: rash - Psychiatric Psychiatric: appropriate mood/affect - Neurologic Neurologic: no focal deficits, moves all extremities HEART Score - HEART Score Troponin: Troponin T 0.197 ng/mL (0.00-0.029) H* 09/09/21 07:38 Results - Labs CBC & Chem 7: 09/14/21 05:35 09/14/21 05:35 Labs: Laboratory Last Values WBC 6.5 K/mm3 (4.5-11.0) 09/12/21 04:44 RBC 4.24 M/mm3 (3.65-5.03) 09/12/21 04:44 Hgb 12.3 gm/dl (11.8-15.2) 09/12/21 04:44 Hct 36.1 % (35.5-45.6) 09/12/21 04:44 MCV 85 fl (84-94) 09/12/21 04:44 MCH 29 pg (28-32) 09/12/21 04:44 MCHC 34 % (32-34) 09/12/21 04:44 RDW 13.0 % (13.2-15.2) L 09/12/21 04:44 Plt Count 296 K/mm3 (140-440) 09/12/21 04:44 Lymph % (Auto) 12.3 % (13.4-35.0) L 09/12/21 04:44 [place] % (Auto) 12.1 % (0.0-7.3) H 09/12/21 04:44 Eos % (Auto) 1.2 % (0.0-4.3) 09/12/21 04:44 Baso % (Auto) 0.8 % (0.0-1.8) 09/12/21 04:44 Lymph # (Auto) 0.8 K/mm3 (1.2-5.4) L 09/12/21 04:44 [place] # (Auto) 0.8 K/mm3 (0.0-0.8) 09/12/21 04:44 Eos # (Auto) 0.1 K/mm3 (0.0-0.4) 09/12/21 04:44 Baso # (Auto) 0.1 K/mm3 (0.0-0.1) 09/12/21 04:44 Seg Neutrophils % 73.6 % (40.0-70.0) H 09/12/21 04:44 Seg Neutrophils # 4.8 K/mm3 (1.8-7.7) 09/12/21 04:44 Sodium 138 mmol/L (137-145) 09/12/21 04:44 Potassium 3.9 mmol/L (3.6-5.0) 09/12/21 04:44 Chloride 98.2 mmol/L (98-107) 09/12/21 04:44 Carbon Dioxide 23 mmol/L (22-30) 09/12/21 04:44 Anion Gap 21 mmol/L 09/12/21 04:44 BUN 52 mg/dL (9-20) H 09/12/21 04:44 Creatinine 12.6 mg/dL (0.8-1.3) H 09/12/21 04:44 Estimated GFR 5 ml/min 09/12/21 04:44 BUN/Creatinine Ratio 4 % 09/12/21 04:44 Glucose 99 mg/dL (75-100) 09/12/21 04:44 Uric Acid 6.1 mg/dL (3.5-7.6) D 09/11/21 05:40 Calcium 8.1 mg/dL (8.4-10.2) L 09/12/21 04:44 Phosphorus 6.80 mg/dL (2.5-4.5) H 09/11/21 05:40 Total Bilirubin 0.30 mg/dL (0.1-1.2) 09/07/21 19:51 AST 33 units/L (5-40) 09/07/21 19:51 ALT 123 units/L (7-56) H 09/07/21 19:51 Alkaline Phosphatase 49 units/L (35-129) 09/07/21 19:51 Troponin T 0.197 ng/mL (0.00-0.029) H* 09/09/21 07:38 Total Protein 7.1 g/dL (6.3-8.2) 09/07/21 19:51 Albumin 3.7 g/dL (3.9-5) L 09/07/21 19:51 Albumin/Globulin Ratio 1.1 % 09/07/21 19:51 Triglycerides 220 mg/dL (2-149) H 09/07/21 20:51 Cholesterol 194 mg/dL (50-199) 09/07/21 20:51 LDL Cholesterol Direct 108 mg/dL (50-130) 09/07/21 20:51 HDL Cholesterol 46 mg/dL (40-59) 09/07/21 20:51 Cholesterol/HDL Ratio 4.21 % 09/07/21 20:51 25-OH Vitamin D Total 10 ng/mL (30-100) L 09/08/21 15:50 25-Hydroxy Vitamin D2 <4 ng/mL 09/08/21 15:50 25-Hydroxy Vitamin D3 10 ng/mL 09/08/21 15:50 PTH Intact 400.7 pg/mL (15-65) H 09/09/21 14:56 Urine Color Yellow (Yellow) 09/08/21 11:46 Urine Turbidity Slightly-cloudy (Clear) 09/08/21 11:46 Urine pH 5.0 (5.0-7.0) 09/08/21 11:46 Ur Specific [place] 1.014 (1.003-1.030) 09/08/21 11:46 Urine Protein 100 mg/dl mg/dL (Negative) 09/08/21 11:46 Urine Glucose (UA) 50 mg/dL (Negative) 09/08/21 11:46 Urine Ketones Neg mg/dL (Negative) 09/08/21 11:46 Urine Blood Lg (Negative) 09/08/21 11:46 Urine Nitrite Neg (Negative) 09/08/21 11:46 Urine Bilirubin Neg (Negative) 09/08/21 11:46 Urine Urobilinogen < 2.0 mg/dL (<2.0) 09/08/21 11:46 Ur Leukocyte Esterase Sm (Negative) 09/08/21 11:46 Urine WBC (Auto) 20.0 /HPF (0.0-6.0) H 09/08/21 11:46 Urine RBC (Auto) 3.0 /HPF (0.0-6.0) 09/08/21 11:46 U Epithel Cells (Auto) 1.0 /HPF (0-13.0) 09/08/21 11:46 Urine Bacteria (Auto) 1+ /HPF (Negative) 09/08/21 11:46 Urine Mucus Few /HPF 09/08/21 11:46 Urine Creatinine 310.9 mg/dL (0.1-20.0) H 09/08/21 12:28 Urine Sodium 29 mmol/L 09/08/21 12:28 Urine Total Protein 111 mg/dL (5-11.8) H 09/08/21 12:28 Immunofix Electrophor see below 09/08/21 15:50 SARS-CoV-2 (PCR) Negative (Negative) 09/09/21 10:06 Hepatitis A IgM Ab Non-reactive (NonReactive) 09/08/21 15:50 Hep Bs Antigen Nonreactive (Negative) 09/08/21 15:50 Hep B Core IgM Ab Non-reactive (NonReactive) 09/08/21 15:50 Hepatitis C Antibody Non-reactive (NonReactive) 09/08/21 15:50 Hirsch/IV: Voiding Method Toilet Active Medications - Current Medications Current Medications: Generic Name Dose Route Start Last Admin Trade Name Freq PRN Reason Stop Dose Admin Acetaminophen 650 mg 09/07/21 22:17 09/10/21 18:26 Acetaminophen 325 Mg Tab PO 650 mg Q4H PRN Administration Pain MILD(1-3)/Fever >100.5/JOHNSON Calcitriol 0.5 mcg 09/11/21 11:00 09/12/21 10:16 Calcitriol 0.5 Mcg Cap PO 0.5 mcg QDAY MARK Administration Heparin Sodium (Porcine) 5,000 unit 09/08/21 06:00 09/12/21 14:55 Heparin 5,000 Unit/1 Ml Vial SUB-Q Not Given Q8HR MARK Hydralazine HCl 10 mg 09/12/21 00:41 09/12/21 00:53 Hydralazine 20 Mg/1 Ml Inj IV 10 mg Q6H PRN Administration Hypertension Sodium Chloride 1,000 mls @ 125 mls/hr 09/07/21 22:45 09/12/21 00:16 Nacl 0.9% 1000 Ml IV 125 mls/hr DIRECT MARK Administration Sodium Chloride 100 mls @ 999 mls/hr 09/12/21 10:00 Nacl 0.9% IV AYAH PRN Hypotension Morphine Sulfate 2 mg 09/07/21 22:42 Morphine 2 Mg/1 Ml Inj IV Q4H PRN Pain, Moderate (4-6) Morphine Sulfate 4 mg 09/07/21 22:42 09/12/21 15:16 Morphine 4 Mg/1 Ml Inj IV 4 mg Q4H PRN Administration Pain , Severe (7-10) Ondansetron HCl 4 mg 09/07/21 22:17 09/12/21 15:16 Ondansetron 4 Mg/2 Ml Inj IV 4 mg Q8H PRN Administration Nausea And Vomiting Sodium Chloride 10 ml 09/07/21 22:00 09/12/21 10:17 Sodium Chloride 0.9% 10 Ml Flush Syringe IV 10 ml BID MARK Administration Sodium Chloride 10 ml 09/07/21 21:45 09/10/21 15:09 Sodium Chloride 0.9% 10 Ml Flush Syringe IV 10 ml PRN PRN Administration LINE FLUSH
[2021-09-13 05:23] LABS: ANA Screen, IFA Negative (Negative)
[2021-09-13] MEDS: HEPARIN 5,000 UNIT/1 ML VIAL SUB-Q SCH ×3 (06:00→22:35)
[2021-09-13] MEDS: hydrALAZINE 20 MG/1 ML INJ IV PRN (06:59)
[2021-09-13] MEDS: MORPHINE 4 MG/1 ML INJ IV PRN (07:00)
[2021-09-13] MEDS: CALCITRIOL 0.5 MCG CAP PO SCH (09:05)
[2021-09-13] MEDS ORDERED: SODIUM CHLORIDE 0.9% 100 ML IV PRN (09:37)
[2021-09-13] MEDS: ONDANSETRON 4 MG/2 ML INJ IV PRN ×2 (10:15→17:19)
[2021-09-13] MEDS: carvediloL 6.25 MG TAB PO SCH ×3 (10:45→22:34)
[2021-09-13 14:03] LABS: Basophils # (Auto) 0.1 K/mm3 (0.0-0.1); Basophils % (Auto) 0.5 % (0.0-1.8); Eosinophils % (Auto) 0.5 % (0.0-4.3); Hematocrit 37.6 % (35.5-45.6); Hemoglobin 12.7 gm/dl (11.8-15.2); Lymphocytes # (Auto) 0.8 K/mm3 (1.2-5.4); Lymphocytes % (Auto) 8.4 % (13.4-35.0); Mean Corpuscular HGB Conc 34 % (32-34); Mean Corpuscular Volume 86 fl (84-94); Monocytes # (Auto) 0.9 K/mm3 (0.0-0.8); Monocytes % (Auto) 10.3 % (0.0-7.3); Platelet Count 289 K/mm3 (140-440); Red Blood Count 4.38 M/mm3 (3.65-5.03); Red Cell Distribution Width 12.4 % (13.2-15.2)
[2021-09-13 14:17] LABS: Calcium 8.7 mg/dL (8.4-10.2)
--- NOTE | 2021-09-13 17:53 | Progress Note ---
Subjective Date of service: 09/13/21 Principal diagnosis: grayson Interval history: #GRAYSON on likley adv CKD -ESRD, obstructive nephropathy continue renal replacement therapy today and TTHSAT possibility of underlying chronic glomerulonephritis cannot be ruled out Patient does have bilateral echogenic kidneys, suggestive of chronic kidney disease will need outpatient hd unit placement--ok to dc once arranged #Mild right-sided hydronephrosis with stone, needs to see urology Patient does have bilateral echogenic kidney suggestive of chronic kidney disease, #Mild metabolic acidosis--give sodium bicarbonate #Mild hyponatremia #HTN #Mild hypocalcemia? Due to underlying chronic kidney disease bone mineral disorder secondary hyperparathyroidism vitamin D deficiency added calcitriol ok to dc once outpatient clinic arranged Subjective: labs and chart reviewed events noted Physical examination Vitals: Reviewed General: No acute distress HEENT: Oral mucosa moist no pallor or icterus Neck: Supple without any JVD thyromegaly or nodular mass Chest: Clear to auscultation Heart: Regular rate and rhythm S1-S2 heard no S3-S4 Abdomen: Soft nontender, bowel sounds present no renal bruit no suprapubic masses no CVA tenderness noted Extremity: Minimal edema dry skin no peripheral cyanosis Endocrine: Thyroid not enlarged Psychiatric: No agitation and aggression noted Musculoskeletal: No joint effusion noted Objective - Vital Signs Vital signs: Vital Signs - 12hr 09/13/21 09/13/21 09/13/21 06:59 08:49 09:00 Temperature 98.8 F Pulse Rate 69 18 L Respiratory 18 Rate Blood Pressure 177/96 183/95 O2 Sat by Pulse 98 Oximetry O2 Sat by Pulse 100 Oximetry [ Anterior Bilateral Throughout] 09/13/21 09/13/21 09/13/21 09:20 09:30 09:45 Temperature Pulse Rate 75 68 80 Respiratory Rate Blood Pressure 167/97 190/103 166/91 O2 Sat by Pulse Oximetry O2 Sat by Pulse Oximetry [ Anterior Bilateral Throughout] 09/13/21 09/13/21 09/13/21 10:00 10:15 10:30 Temperature Pulse Rate 68 65 65 Respiratory Rate Blood Pressure 185/96 190/101 186/101 O2 Sat by Pulse Oximetry O2 Sat by Pulse Oximetry [ Anterior Bilateral Throughout] 09/13/21 09/13/21 09/13/21 10:45 11:00 11:15 Temperature Pulse Rate 65 64 62 Respiratory Rate Blood Pressure 190/101 192/99 189/103 O2 Sat by Pulse Oximetry O2 Sat by Pulse Oximetry [ Anterior Bilateral Throughout] 09/13/21 09/13/21 09/13/21 11:30 11:45 12:00 Temperature Pulse Rate 57 L 56 L 57 L Respiratory Rate Blood Pressure 181/95 200/98 165/94 O2 Sat by Pulse Oximetry O2 Sat by Pulse Oximetry [ Anterior Bilateral Throughout] 09/13/21 13:02 Temperature 98.2 F Pulse Rate 58 L Respiratory 20 Rate Blood Pressure 197/101 O2 Sat by Pulse Oximetry O2 Sat by Pulse 100 Oximetry [ Anterior Bilateral Throughout] - Lab 09/13/21 13:39 09/13/21 13:39 Most recent lab results Calcium 8.7 mg/dL (8.4-10.2) 09/13/21 13:39 Phosphorus 6.80 mg/dL (2.5-4.5) H 09/11/21 05:40 Urine Creatinine 310.9 mg/dL (0.1-20.0) H 09/08/21 12:28 Urine Sodium 29 mmol/L 09/08/21 12:28 Urine Total Protein 111 mg/dL (5-11.8) H 09/08/21 12:28 Medications & Allergies - Medications Allergies/Adverse Reactions: Allergies No Known Allergies Allergy (Verified 09/10/21 10:04) Home Medications: Home Medications Medication Instructions Recorded Confirmed Last Taken Type No Known Home Medications [No 09/10/21 09/10/21 Unknown History Reported Home Medications] Active Medications: Generic Name Dose Route Start Last Admin Trade Name Freq PRN Reason Stop Dose Admin Acetaminophen 650 mg 09/07/21 22:17 09/10/21 18:26 Acetaminophen 325 Mg Tab PO 650 mg Q4H PRN Administration Pain MILD(1-3)/Fever >100.5/JOHNSON Calcitriol 0.5 mcg 09/11/21 11:00 09/13/21 09:05 Calcitriol 0.5 Mcg Cap PO 0.5 mcg QDAY MARK Administration Carvedilol 6.25 mg 09/13/21 11:00 09/13/21 11:53 Carvedilol 6.25 Mg Tab PO Not Given BID MARK Heparin Sodium (Porcine) 5,000 unit 09/08/21 06:00 09/13/21 14:56 Heparin 5,000 Unit/1 Ml Vial SUB-Q 5,000 unit Q8HR MARK Administration Hydralazine HCl 10 mg 09/12/21 00:41 09/13/21 06:59 Hydralazine 20 Mg/1 Ml Inj IV 10 mg Q6H PRN Administration Hypertension Sodium Chloride 1,000 mls @ 125 mls/hr 09/07/21 22:45 09/12/21 00:16 Nacl 0.9% 1000 Ml IV 125 mls/hr DIRECT MARK Administration Sodium Chloride 100 mls @ 999 mls/hr 09/13/21 09:37 Nacl 0.9% IV AYAH PRN Hypotension Ondansetron HCl 4 mg 09/07/21 22:17 09/13/21 17:19 Ondansetron 4 Mg/2 Ml Inj IV 4 mg Q8H PRN Administration Nausea And Vomiting Sodium Chloride 10 ml 09/07/21 22:00 09/13/21 09:05 Sodium Chloride 0.9% 10 Ml Flush Syringe IV 10 ml BID MARK Administration Sodium Chloride 10 ml 09/07/21 21:45 09/10/21 15:09 Sodium Chloride 0.9% 10 Ml Flush Syringe IV 10 ml PRN PRN Administration LINE FLUSH
--- NOTE | 2021-09-13 19:20 | Progress Note ---
Assessment and Plan Assessment and plan: 40-year-old -[place]ir[place] male with no significant past medical history presents to the in the emergency room with acute onset of nausea and vomiting with accompanying lower back pain. He also indicates that he has been having generalized weakness over the past 1 week. Patient denies any fever or chills, denies any chest pain, no shortness of breath, no headache or dizziness and no diaphoresis. He has had some intermittent lower abdominal pain that radiates to the back. He denies any hematuria or dysuria. Patient denies any sick contacts and no recent travel. Denies any contact with anyone with COVID-19. Work-up in the emergency room today, significant findings when the labs with hyponatremia 129, BUN was 171 and creatinine of 19.9. Troponin of 0.174. Chest x-ray unremarkable. Renal ultrasound shows mild bilateral renal parenchymal thickening with echogenic kidneys. Mild right-sided hydronephrosis with stone disease. (1) GRAYSON on CKD, initiated hemodialysis Current Visit: Yes Status: Acute Qualifiers: Acute renal failure type: unspecified Qualified Code(s): N17.9 - Acute kidney failure, unspecified Plan to address problem: Nephrology note reviewed Likely chronic kidney disease now progressing to end-stage renal disease Status post right internal jugular tunneled vascular catheter placement Receiving scheduled hemodialysis, remains euvolemic Creatinine is progress improving but nephrology feels he likely has ESRD and recommends outpatient dialysis arrangements. (2) Acute hyponatremia Current Visit: Yes Status: Acute Plan to address problem: Rule out volume overload secondary to GRAYSON versus ESRD Improving Monitor electrolytes (4) elevated troponins in the setting of renal failure Current Visit: Yes Status: Acute Plan to address problem: Possibly secondary to the renal failure. Patient has denied any chest pain. Cardiology evaluated and signed off (5) persistent nausea and vomiting Current Visit: Yes Status: Acute Plan to address problem: Unable to eat due to persistent nausea patient placed on IV Zofran as needed. Possibly from uremia and narcotics. Avoid all narcotic pain meds. will give a trial of scopolamine patch (6) mild right-sided hydronephrosis with stones Will need urology evaluation (7) acute cystitis Treated with Rocephin (8) DVT prophylaxis Current Visit: Yes Status: Acute Plan to address problem: Patient placed on subcutaneous heparin. Discharge disposition: Nephrology recommending outpatient dialysis arrangements, discussed with the case management. History Interval history: Patient remains clinically stable and undergoing scheduled dialysis, patient reports significant nausea and is unable to eat, awaiting outpatient dialysis arrangements and CM aware. Hospitalist Physical - Constitutional Vitals: Temp Pulse Resp BP Pulse Ox 98.2 F 58 L 20 197/101 100 09/13/21 13:02 09/13/21 13:02 09/13/21 13:02 09/13/21 13:02 09/13/21 13:02 General appearance: Present: no acute distress, well-nourished, other (Sluggish looking) - EENT Eyes: Present: PERRL, EOM intact ENT: clear oral mucosa - Neck Neck: Present: supple - Respiratory Respiratory effort: normal Respiratory: bilateral: CTA - Cardiovascular Rhythm: regular - Extremities Extremities: No edema - Abdominal General gastrointestinal: soft, non-tender, non-distended - Integumentary Integumentary: Absent: rash - Psychiatric Psychiatric: appropriate mood/affect - Neurologic Neurologic: no focal deficits, moves all extremities HEART Score - HEART Score Troponin: Troponin T 0.197 ng/mL (0.00-0.029) H* 09/09/21 07:38 Results - Labs CBC & Chem 7: 09/14/21 05:35 09/14/21 05:35 Labs: Laboratory Last Values WBC 9.2 K/mm3 (4.5-11.0) 09/13/21 13:39 RBC 4.38 M/mm3 (3.65-5.03) 09/13/21 13:39 Hgb 12.7 gm/dl (11.8-15.2) 09/13/21 13:39 Hct 37.6 % (35.5-45.6) 09/13/21 13:39 MCV 86 fl (84-94) 09/13/21 13:39 MCH 29 pg (28-32) 09/13/21 13:39 MCHC 34 % (32-34) 09/13/21 13:39 RDW 12.4 % (13.2-15.2) L 09/13/21 13:39 Plt Count 289 K/mm3 (140-440) 09/13/21 13:39 Lymph % (Auto) 8.4 % (13.4-35.0) L 09/13/21 13:39 [place] % (Auto) 10.3 % (0.0-7.3) H 09/13/21 13:39 Eos % (Auto) 0.5 % (0.0-4.3) 09/13/21 13:39 Baso % (Auto) 0.5 % (0.0-1.8) 09/13/21 13:39 Lymph # (Auto) 0.8 K/mm3 (1.2-5.4) L 09/13/21 13:39 [place] # (Auto) 0.9 K/mm3 (0.0-0.8) H 09/13/21 13:39 Eos # (Auto) 0.0 K/mm3 (0.0-0.4) 09/13/21 13:39 Baso # (Auto) 0.1 K/mm3 (0.0-0.1) 09/13/21 13:39 Seg Neutrophils % 80.3 % (40.0-70.0) H 09/13/21 13:39 Seg Neutrophils # 7.4 K/mm3 (1.8-7.7) 09/13/21 13:39 Sodium 141 mmol/L (137-145) 09/13/21 13:39 Potassium 4.2 mmol/L (3.6-5.0) 09/13/21 13:39 Chloride 99.2 mmol/L (98-107) 09/13/21 13:39 Carbon Dioxide 26 mmol/L (22-30) 09/13/21 13:39 Anion Gap 20 mmol/L 09/13/21 13:39 BUN 23 mg/dL (9-20) H 09/13/21 13:39 Creatinine 7.5 mg/dL (0.8-1.3) H 09/13/21 13:39 Estimated GFR 10 ml/min 09/13/21 13:39 BUN/Creatinine Ratio 3 % 09/13/21 13:39 Glucose 99 mg/dL (75-100) 09/13/21 13:39 Uric Acid 6.1 mg/dL (3.5-7.6) D 09/11/21 05:40 Calcium 8.7 mg/dL (8.4-10.2) 09/13/21 13:39 Phosphorus 6.80 mg/dL (2.5-4.5) H 09/11/21 05:40 Total Bilirubin 0.30 mg/dL (0.1-1.2) 09/07/21 19:51 AST 33 units/L (5-40) 09/07/21 19:51 ALT 123 units/L (7-56) H 09/07/21 19:51 Alkaline Phosphatase 49 units/L (35-129) 09/07/21 19:51 Troponin T 0.197 ng/mL (0.00-0.029) H* 09/09/21 07:38 Total Protein 7.1 g/dL (6.3-8.2) 09/07/21 19:51 Albumin 3.7 g/dL (3.9-5) L 09/07/21 19:51 Albumin/Globulin Ratio 1.1 % 09/07/21 19:51 Triglycerides 220 mg/dL (2-149) H 09/07/21 20:51 Cholesterol 194 mg/dL (50-199) 09/07/21 20:51 LDL Cholesterol Direct 108 mg/dL (50-130) 09/07/21 20:51 HDL Cholesterol 46 mg/dL (40-59) 09/07/21 20:51 Cholesterol/HDL Ratio 4.21 % 09/07/21 20:51 25-OH Vitamin D Total 10 ng/mL (30-100) L 09/08/21 15:50 25-Hydroxy Vitamin D2 <4 ng/mL 09/08/21 15:50 25-Hydroxy Vitamin D3 10 ng/mL 09/08/21 15:50 PTH Intact 400.7 pg/mL (15-65) H 09/09/21 14:56 Urine Color Yellow (Yellow) 09/08/21 11:46 Urine Turbidity Slightly-cloudy (Clear) 09/08/21 11:46 Urine pH 5.0 (5.0-7.0) 09/08/21 11:46 Ur Specific [place] 1.014 (1.003-1.030) 09/08/21 11:46 Urine Protein 100 mg/dl mg/dL (Negative) 09/08/21 11:46 Urine Glucose (UA) 50 mg/dL (Negative) 09/08/21 11:46 Urine Ketones Neg mg/dL (Negative) 09/08/21 11:46 Urine Blood Lg (Negative) 09/08/21 11:46 Urine Nitrite Neg (Negative) 09/08/21 11:46 Urine Bilirubin Neg (Negative) 09/08/21 11:46 Urine Urobilinogen < 2.0 mg/dL (<2.0) 09/08/21 11:46 Ur Leukocyte Esterase Sm (Negative) 09/08/21 11:46 Urine WBC (Auto) 20.0 /HPF (0.0-6.0) H 09/08/21 11:46 Urine RBC (Auto) 3.0 /HPF (0.0-6.0) 09/08/21 11:46 U Epithel Cells (Auto) 1.0 /HPF (0-13.0) 09/08/21 11:46 Urine Bacteria (Auto) 1+ /HPF (Negative) 09/08/21 11:46 Urine Mucus Few /HPF 09/08/21 11:46 Urine Creatinine 310.9 mg/dL (0.1-20.0) H 09/08/21 12:28 Urine Sodium 29 mmol/L 09/08/21 12:28 Urine Total Protein 111 mg/dL (5-11.8) H 09/08/21 12:28 Immunofix Electrophor see below 09/08/21 15:50 JEVON Screen Negative (Negative) 09/08/21 15:50 SARS-CoV-2 (PCR) Negative (Negative) 09/09/21 10:06 Hepatitis A IgM Ab Non-reactive (NonReactive) 09/08/21 15:50 Hep Bs Antigen Nonreactive (Negative) 09/08/21 15:50 Hep B Core IgM Ab Non-reactive (NonReactive) 09/08/21 15:50 Hepatitis C Antibody Non-reactive (NonReactive) 09/08/21 15:50 Hirsch/IV: Voiding Method Urinal Active Medications - Current Medications Current Medications: Generic Name Dose Route Start Last Admin Trade Name Freq PRN Reason Stop Dose Admin Acetaminophen 650 mg 09/07/21 22:17 09/10/21 18:26 Acetaminophen 325 Mg Tab PO 650 mg Q4H PRN Administration Pain MILD(1-3)/Fever >100.5/JOHNSON Calcitriol 0.5 mcg 09/11/21 11:00 09/13/21 09:05 Calcitriol 0.5 Mcg Cap PO 0.5 mcg QDAY MARK Administration Carvedilol 6.25 mg 09/13/21 11:00 09/13/21 11:53 Carvedilol 6.25 Mg Tab PO Not Given BID MARK Heparin Sodium (Porcine) 5,000 unit 09/08/21 06:00 09/13/21 14:56 Heparin 5,000 Unit/1 Ml Vial SUB-Q 5,000 unit Q8HR MARK Administration Hydralazine HCl 10 mg 09/12/21 00:41 09/13/21 06:59 Hydralazine 20 Mg/1 Ml Inj IV 10 mg Q6H PRN Administration Hypertension Sodium Chloride 1,000 mls @ 125 mls/hr 09/07/21 22:45 09/12/21 00:16 Nacl 0.9% 1000 Ml IV 125 mls/hr DIRECT MARK Administration Sodium Chloride 100 mls @ 999 mls/hr 09/13/21 09:37 Nacl 0.9% IV AYAH PRN Hypotension Ondansetron HCl 4 mg 09/07/21 22:17 09/13/21 17:19 Ondansetron 4 Mg/2 Ml Inj IV 4 mg Q8H PRN Administration Nausea And Vomiting Sodium Chloride 10 ml 09/07/21 22:00 09/13/21 09:05 Sodium Chloride 0.9% 10 Ml Flush Syringe IV 10 ml BID MARK Administration Sodium Chloride 10 ml 09/07/21 21:45 09/10/21 15:09 Sodium Chloride 0.9% 10 Ml Flush Syringe IV 10 ml PRN PRN Administration LINE FLUSH
[2021-09-14] MEDS: hydrALAZINE 20 MG/1 ML INJ IV PRN ×2 (02:09→13:15)
[2021-09-14] MEDS: ONDANSETRON 4 MG/2 ML INJ IV PRN ×3 (02:09→22:30)
[2021-09-14] MEDS: HEPARIN 5,000 UNIT/1 ML VIAL SUB-Q SCH ×3 (05:29→22:06)
[2021-09-14 06:11] LABS: Basophils # (Auto) 0.1 K/mm3 (0.0-0.1); Basophils % (Auto) 0.6 % (0.0-1.8); Eosinophils # (Auto) 0.1 K/mm3 (0.0-0.4); Eosinophils % (Auto) 1.3 % (0.0-4.3); Hematocrit 35.1 % (35.5-45.6); Lymphocytes # (Auto) 1.1 K/mm3 (1.2-5.4); Lymphocytes % (Auto) 10.7 % (13.4-35.0); Mean Corpuscular HGB Conc 34 % (32-34); Mean Corpuscular Volume 85 fl (84-94); Monocytes # (Auto) 1.1 K/mm3 (0.0-0.8); Monocytes % (Auto) 10.3 % (0.0-7.3); Platelet Count 270 K/mm3 (140-440); Red Blood Count 4.14 M/mm3 (3.65-5.03); Red Cell Distribution Width 12.6 % (13.2-15.2)
[2021-09-14 06:22] LABS: Calcium 8.7 mg/dL (8.4-10.2)
--- NOTE | 2021-09-14 09:17 | Progress Note ---
Subjective Date of service: 09/14/21 Principal diagnosis: grayson Interval history: #GRAYSON on likley adv CKD continue renal replacement therapy today and TTHSAT possibility of underlying chronic glomerulonephritis cannot be ruled out Patient does have bilateral echogenic kidneys, suggestive of chronic kidney disease will carry the diagnosis of grayson for 90 days, will not change diagnosis for sake of placement--CMS violation will need outpatient hd unit placement--ok to dc once arranged #Mild right-sided hydronephrosis with stone, needs to see urology Patient does have bilateral echogenic kidney suggestive of chronic kidney disease, #Mild metabolic acidosis--give sodium bicarbonate #Mild hyponatremia #HTN #Mild hypocalcemia? Due to underlying chronic kidney disease bone mineral disorder secondary hyperparathyroidism vitamin D deficiency added calcitriol ok to dc once outpatient clinic arranged Subjective: labs and chart reviewed events noted Physical examination Vitals: Reviewed General: No acute distress HEENT: Oral mucosa moist no pallor or icterus Neck: Supple without any JVD thyromegaly or nodular mass Chest: Clear to auscultation Heart: Regular rate and rhythm S1-S2 heard no S3-S4 Abdomen: Soft nontender, bowel sounds present no renal bruit no suprapubic masses no CVA tenderness noted Extremity: Minimal edema dry skin no peripheral cyanosis Endocrine: Thyroid not enlarged Psychiatric: No agitation and aggression noted Musculoskeletal: No joint effusion noted Objective - Vital Signs Vital signs: Vital Signs - 12hr 09/13/21 09/13/21 09/14/21 22:47 23:26 03:05 Temperature 98.2 F 98.0 F Pulse Rate 77 79 Respiratory 18 18 Rate Blood Pressure 183/99 141/81 O2 Sat by Pulse 92 97 92 Oximetry 09/14/21 09/14/21 09/14/21 07:56 08:00 09:02 Temperature 98.2 F Pulse Rate 78 Respiratory 20 Rate Blood Pressure 132/76 O2 Sat by Pulse 94 97 95 Oximetry - Lab 09/14/21 05:35 09/14/21 05:35 Most recent lab results Calcium 8.7 mg/dL (8.4-10.2) 09/14/21 05:35 Phosphorus 6.80 mg/dL (2.5-4.5) H 09/11/21 05:40 Urine Creatinine 310.9 mg/dL (0.1-20.0) H 09/08/21 12:28 Urine Sodium 29 mmol/L 09/08/21 12:28 Urine Total Protein 111 mg/dL (5-11.8) H 09/08/21 12:28 Medications & Allergies - Medications Allergies/Adverse Reactions: Allergies No Known Allergies Allergy (Verified 09/10/21 10:04) Home Medications: Home Medications Medication Instructions Recorded Confirmed Last Taken Type No Known Home Medications [No 09/10/21 09/10/21 Unknown History Reported Home Medications] Active Medications: Generic Name Dose Route Start Last Admin Trade Name Freq PRN Reason Stop Dose Admin Acetaminophen 650 mg 09/07/21 22:17 09/10/21 18:26 Acetaminophen 325 Mg Tab PO 650 mg Q4H PRN Administration Pain MILD(1-3)/Fever >100.5/JOHNSON Calcitriol 0.5 mcg 09/11/21 11:00 09/13/21 09:05 Calcitriol 0.5 Mcg Cap PO 0.5 mcg QDAY MARK Administration Carvedilol 6.25 mg 09/13/21 11:00 09/13/21 22:34 Carvedilol 6.25 Mg Tab PO 6.25 mg BID MARK Administration Heparin Sodium (Porcine) 5,000 unit 09/08/21 06:00 09/14/21 05:29 Heparin 5,000 Unit/1 Ml Vial SUB-Q 5,000 unit Q8HR MARK Administration Hydralazine HCl 10 mg 09/12/21 00:41 09/14/21 02:09 Hydralazine 20 Mg/1 Ml Inj IV 10 mg Q6H PRN Administration Hypertension Sodium Chloride 1,000 mls @ 125 mls/hr 09/07/21 22:45 09/12/21 00:16 Nacl 0.9% 1000 Ml IV 125 mls/hr DIRECT MARK Administration Sodium Chloride 100 mls @ 999 mls/hr 09/13/21 09:37 Nacl 0.9% IV AYAH PRN Hypotension Ondansetron HCl 4 mg 09/07/21 22:17 09/14/21 02:09 Ondansetron 4 Mg/2 Ml Inj IV 4 mg Q8H PRN Administration Nausea And Vomiting Scopolamine 1 each 09/14/21 10:00 Scopolamine Transdermal Patch 72 Hr TD Q3D MARK Sodium Chloride 10 ml 09/07/21 22:00 09/13/21 22:35 Sodium Chloride 0.9% 10 Ml Flush Syringe IV 10 ml BID MARK Administration Sodium Chloride 10 ml 09/07/21 21:45 09/10/21 15:09 Sodium Chloride 0.9% 10 Ml Flush Syringe IV 10 ml PRN PRN Administration LINE FLUSH
[2021-09-14] MEDS: carvediloL 6.25 MG TAB PO SCH ×2 (13:24→22:06)
[2021-09-14] MEDS: SCOPOLAMINE TRANSDERMAL PATCH 72 HR TD SCH (13:24)
[2021-09-14] MEDS: CALCITRIOL 0.5 MCG CAP PO SCH (13:24)
[2021-09-14] MEDS: SODIUM CHLORIDE 0.9% 1000 ML 1,000 ML IV SCH (22:31)
--- NOTE | 2021-09-14 23:04 | Progress Note ---
Subjective Date of service: 09/14/21 Principal diagnosis: jennifer Objective - Constitutional Vitals: Vital Signs - 12hr 09/14/21 09/14/21 09/14/21 11:15 11:30 11:45 Temperature Pulse Rate 69 66 57 L Respiratory Rate Blood Pressure 179/99 164/105 168/103 O2 Sat by Pulse Oximetry O2 Sat by Pulse Oximetry [ Anterior Bilateral Throughout] 09/14/21 09/14/21 09/14/21 12:00 12:15 12:30 Temperature Pulse Rate 60 65 62 Respiratory Rate Blood Pressure 161/105 151/99 203/119 O2 Sat by Pulse Oximetry O2 Sat by Pulse Oximetry [ Anterior Bilateral Throughout] 09/14/21 09/14/21 09/14/21 12:45 13:00 13:15 Temperature Pulse Rate 63 62 62 Respiratory Rate Blood Pressure 207/123 186/111 207/112 O2 Sat by Pulse Oximetry O2 Sat by Pulse Oximetry [ Anterior Bilateral Throughout] 09/14/21 09/14/21 13:35 19:00 Temperature 98.2 F Pulse Rate 74 80 Respiratory 18 18 Rate Blood Pressure 183/102 167/93 O2 Sat by Pulse 93 Oximetry O2 Sat by Pulse 100 Oximetry [ Anterior Bilateral Throughout] General appearance: Present: no acute distress, well-nourished - EENT Eyes: PERRL, EOM intact ENT: hearing intact, clear oral mucosa Ears: bilateral: normal - Neck Neck: supple, normal ROM - Respiratory Respiratory effort: normal Respiratory: bilateral: CTA - Breasts Breasts: normal - Cardiovascular Rhythm: regular Heart Sounds: Present: S1 & S2. Absent: gallop, rub Extremities: pulses intact, No edema, normal color, Full ROM - Gastrointestinal General gastrointestinal: Present: soft, non-tender, non-distended, normal bowel sounds - Genitourinary Male genitourinary: normal - Integumentary Integumentary: clear, warm, dry - Musculoskeletal Musculoskeletal: 1, strength equal bilaterally - Neurologic Neurologic: moves all extremities - Psychiatric Psychiatric: memory intact, appropriate mood/affect, intact judgment & insight - Labs CBC & Chem 7: 09/14/21 05:35 09/14/21 05:35 Labs: Abnormal lab results 09/14/21 09/14/21 Range/Units 05:35 05:35 Hct 35.1 L (35.5-45.6) % RDW 12.6 L (13.2-15.2) % Lymph % (Auto) 10.7 L (13.4-35.0) % [place] % (Auto) 10.3 H (0.0-7.3) % Lymph # (Auto) 1.1 L (1.2-5.4) K/mm3 [place] # (Auto) 1.1 H (0.0-0.8) K/mm3 Seg Neutrophils % 77.1 H (40.0-70.0) % Seg Neutrophils # 7.9 H (1.8-7.7) K/mm3 BUN 29 H (9-20) mg/dL Creatinine 9.4 H (0.8-1.3) mg/dL Glucose 103 H (75-100) mg/dL HEART Score - HEART Score Troponin: Troponin T 0.197 ng/mL (0.00-0.029) H* 09/09/21 07:38
[2021-09-15] MEDS: HEPARIN 5,000 UNIT/1 ML VIAL SUB-Q SCH ×3 (05:51→22:12)
[2021-09-15] MEDS: SODIUM CHLORIDE 0.9% 1000 ML 1,000 ML IV SCH (05:54)
[2021-09-15] MEDS: CALCITRIOL 0.5 MCG CAP PO SCH (09:15)
[2021-09-15] MEDS: ONDANSETRON 4 MG/2 ML INJ IV PRN ×2 (09:15→19:56)
[2021-09-15] MEDS: carvediloL 6.25 MG TAB PO SCH ×2 (09:15→22:11)
[2021-09-15 09:20] LABS: Basophils # (Auto) 0.1 K/mm3 (0.0-0.1); Basophils % (Auto) 1.2 % (0.0-1.8); Eosinophils # (Auto) 0.1 K/mm3 (0.0-0.4); Eosinophils % (Auto) 0.8 % (0.0-4.3); Hematocrit 38.8 % (35.5-45.6); Hemoglobin 12.9 gm/dl (11.8-15.2); Lymphocytes # (Auto) 1.3 K/mm3 (1.2-5.4); Lymphocytes % (Auto) 11.4 % (13.4-35.0); Mean Corpuscular HGB Conc 33 % (32-34); Mean Corpuscular Volume 86 fl (84-94); Monocytes # (Auto) 1.1 K/mm3 (0.0-0.8); Monocytes % (Auto) 8.9 % (0.0-7.3); Platelet Count 293 K/mm3 (140-440); Red Blood Count 4.53 M/mm3 (3.65-5.03); Red Cell Distribution Width 12.7 % (13.2-15.2)
[2021-09-15 09:41] LABS: Calcium 9.6 mg/dL (8.4-10.2)
--- NOTE | 2021-09-15 10:47 | Progress Note ---
Subjective Date of service: 09/15/21 Principal diagnosis: grayson Interval history: #GRAYSON on likley adv CKD--unknown stage continue renal replacement therapy TTHSAT possibility of underlying chronic glomerulonephritis cannot be ruled out Patient does have bilateral echogenic kidneys, suggestive of chronic kidney disease will carry the diagnosis of grayson for 90 days, will not change diagnosis for sake of placement--CMS violation will need outpatient hd unit placement--ok to dc once arranged #Mild right-sided hydronephrosis with stone, needs to see urology Patient does have bilateral echogenic kidney suggestive of chronic kidney disease, #Mild metabolic acidosis--give sodium bicarbonate #Mild hyponatremia #HTN #Mild hypocalcemia? Due to underlying chronic kidney disease bone mineral disorder secondary hyperparathyroidism vitamin D deficiency added calcitriol ok to dc once outpatient clinic arranged Subjective: labs and chart reviewed events noted Physical examination Vitals: Reviewed General: No acute distress HEENT: Oral mucosa moist no pallor or icterus Neck: Supple without any JVD thyromegaly or nodular mass Chest: Clear to auscultation Heart: Regular rate and rhythm S1-S2 heard no S3-S4 Abdomen: Soft nontender, bowel sounds present no renal bruit no suprapubic masses no CVA tenderness noted Extremity: Minimal edema dry skin no peripheral cyanosis Endocrine: Thyroid not enlarged Psychiatric: No agitation and aggression noted Musculoskeletal: No joint effusion noted Objective - Vital Signs Vital signs: Vital Signs - 12hr 09/14/21 09/15/21 23:28 03:26 Temperature 99.2 F 98.2 F Pulse Rate 70 77 Respiratory 18 18 Rate Blood Pressure 167/90 156/89 O2 Sat by Pulse 92 92 Oximetry - Lab 09/15/21 09:07 09/15/21 09:07 Most recent lab results Calcium 9.6 mg/dL (8.4-10.2) 09/15/21 09:07 Phosphorus 6.80 mg/dL (2.5-4.5) H 09/11/21 05:40 Urine Creatinine 310.9 mg/dL (0.1-20.0) H 09/08/21 12:28 Urine Sodium 29 mmol/L 09/08/21 12:28 Urine Total Protein 111 mg/dL (5-11.8) H 09/08/21 12:28 Medications & Allergies - Medications Allergies/Adverse Reactions: Allergies No Known Allergies Allergy (Verified 09/10/21 10:04) Home Medications: Home Medications Medication Instructions Recorded Confirmed Last Taken Type No Known Home Medications [No 09/10/21 09/10/21 Unknown History Reported Home Medications] Active Medications: Generic Name Dose Route Start Last Admin Trade Name Kya PRN Reason Stop Dose Admin Acetaminophen 650 mg 09/07/21 22:17 09/10/21 18:26 Acetaminophen 325 Mg Tab PO 650 mg Q4H PRN Administration Pain MILD(1-3)/Fever >100.5/JOHNSON Calcitriol 0.5 mcg 09/11/21 11:00 09/14/21 13:24 Calcitriol 0.5 Mcg Cap PO 0.5 mcg QDAY MARK Administration Carvedilol 6.25 mg 09/13/21 11:00 09/14/21 22:06 Carvedilol 6.25 Mg Tab PO 6.25 mg BID MARK Administration Heparin Sodium (Porcine) 5,000 unit 09/08/21 06:00 09/15/21 05:51 Heparin 5,000 Unit/1 Ml Vial SUB-Q Not Given Q8HR MARK Hydralazine HCl 10 mg 09/12/21 00:41 09/14/21 13:15 Hydralazine 20 Mg/1 Ml Inj IV 10 mg Q6H PRN Administration Hypertension Sodium Chloride 1,000 mls @ 125 mls/hr 09/07/21 22:45 09/15/21 05:54 Nacl 0.9% 1000 Ml IV 125 mls/hr DIRECT MARK Administration Sodium Chloride 100 mls @ 999 mls/hr 09/13/21 09:37 Nacl 0.9% IV AYAH PRN Hypotension Ondansetron HCl 4 mg 09/07/21 22:17 09/14/21 22:30 Ondansetron 4 Mg/2 Ml Inj IV 4 mg Q8H PRN Administration Nausea And Vomiting Scopolamine 1 each 09/14/21 10:00 09/14/21 13:24 Scopolamine Transdermal Patch 72 Hr TD 1 each Q3D MARK Administration Sodium Chloride 10 ml 09/07/21 22:00 09/14/21 22:07 Sodium Chloride 0.9% 10 Ml Flush Syringe IV 10 ml BID MARK Administration Sodium Chloride 10 ml 09/07/21 21:45 09/10/21 15:09 Sodium Chloride 0.9% 10 Ml Flush Syringe IV 10 ml PRN PRN Administration LINE FLUSH
--- NOTE | 2021-09-15 16:46 | Progress Note ---
Subjective Date of service: 09/14/21 Principal diagnosis: jennifer Objective - Constitutional Vitals: Vital Signs - 12hr 09/15/21 09/15/21 10:00 11:53 Temperature 98.6 F Pulse Rate 95 H Respiratory 18 Rate Blood Pressure 159/79 [Right] O2 Sat by Pulse 97 98 Oximetry General appearance: Present: no acute distress, well-nourished - EENT Eyes: PERRL, EOM intact ENT: hearing intact, clear oral mucosa Ears: bilateral: normal - Neck Neck: supple, normal ROM - Respiratory Respiratory effort: normal Respiratory: bilateral: CTA - Breasts Breasts: normal - Cardiovascular Rhythm: regular Heart Sounds: Present: S1 & S2. Absent: gallop, rub Extremities: pulses intact, No edema, normal color, Full ROM - Gastrointestinal General gastrointestinal: Present: soft, non-tender, non-distended, normal bowel sounds - Genitourinary Male genitourinary: normal - Integumentary Integumentary: clear, warm, dry - Musculoskeletal Musculoskeletal: 1, strength equal bilaterally - Neurologic Neurologic: moves all extremities - Psychiatric Psychiatric: memory intact, appropriate mood/affect, intact judgment & insight - Labs CBC & Chem 7: 09/15/21 09:07 09/15/21 09:07 Labs: Abnormal lab results 09/15/21 09/15/21 Range/Units 09:07 09:07 WBC 11.8 H (4.5-11.0) K/mm3 RDW 12.7 L (13.2-15.2) % Lymph % (Auto) 11.4 L (13.4-35.0) % [place] % (Auto) 8.9 H (0.0-7.3) % [place] # (Auto) 1.1 H (0.0-0.8) K/mm3 Seg Neutrophils % 77.7 H (40.0-70.0) % Seg Neutrophils # 9.2 H (1.8-7.7) K/mm3 BUN 25 H (9-20) mg/dL Creatinine 7.8 H (0.8-1.3) mg/dL Glucose 121 H (75-100) mg/dL HEART Score - HEART Score Troponin: Troponin T 0.197 ng/mL (0.00-0.029) H* 09/09/21 07:38
--- NOTE | 2021-09-15 16:49 | Event Note ---
Date: 09/15/21 Patient is willing to get peritoneal dialysis also so that he can go go to work
[2021-09-16 05:48] LABS: Basophils # (Auto) 0.1 K/mm3 (0.0-0.1); Basophils % (Auto) 0.7 % (0.0-1.8); Eosinophils # (Auto) 0.1 K/mm3 (0.0-0.4); Eosinophils % (Auto) 1.3 % (0.0-4.3); Hematocrit 32.1 % (35.5-45.6); Hemoglobin 10.8 gm/dl (11.8-15.2); Lymphocytes # (Auto) 1.5 K/mm3 (1.2-5.4); Lymphocytes % (Auto) 16.1 % (13.4-35.0); Mean Corpuscular HGB Conc 34 % (32-34); Mean Corpuscular Volume 86 fl (84-94); Monocytes % (Auto) 10.9 % (0.0-7.3); Platelet Count 246 K/mm3 (140-440); Red Blood Count 3.72 M/mm3 (3.65-5.03); Red Cell Distribution Width 12.6 % (13.2-15.2)
[2021-09-16 06:04] LABS: Calcium 9.8 mg/dL (8.4-10.2)
[2021-09-16] MEDS: HEPARIN 5,000 UNIT/1 ML VIAL SUB-Q SCH ×3 (07:05→21:53)
--- NOTE | 2021-09-16 09:57 | Progress Note ---
Assessment and Plan Impression * GRAYSON vs underlying advanced CKD * Right hydronephrosis * Metabolic acidosis * Hyponatremia * Hypocalcemia Plan: * Continue HD TTS - UF as tolerated * Outpatient HD clinic placement in progress * Stop IVF * Continue calcitriol * Renal diet * Epogen TIW prn * Dose medications * Note patient's interest in peritoneal dialysis. Currently, patient is not ESRD. As such, will maintain intermittent HD and monitor for renal recovery for 90 days. However, once ESRD diagnosis has been established and patient has documented compliance will consider transition to PD at that time. Subjective Date of service: 09/16/21 Principal diagnosis: grayson Interval history: Patient has no complaints. He reports that he is feeling better - appetite improved, weakness improved. Objective - Vital Signs Vital signs: Vital Signs - 12hr 09/15/21 09/16/21 09/16/21 22:00 08:09 08:59 Temperature 98.9 F Pulse Rate 59 L Respiratory 18 Rate Blood Pressure 172/104 O2 Sat by Pulse 97 95 99 Oximetry - General Appearance General appearance: well-developed, well-nourished Respiratory: Present: Clear to Ascultation Cardiology: regular, S1S2 Integumentary: warm and dry Neurologic: no focal deficit, alert and oriented x3 Musculoskeletal: other (trace edema) - Lab 09/16/21 05:22 09/16/21 05:22 Most recent lab results Calcium 9.8 mg/dL (8.4-10.2) 09/16/21 05:22 Phosphorus 6.80 mg/dL (2.5-4.5) H 09/11/21 05:40 Urine Creatinine 310.9 mg/dL (0.1-20.0) H 09/08/21 12:28 Urine Sodium 29 mmol/L 09/08/21 12:28 Urine Total Protein 111 mg/dL (5-11.8) H 09/08/21 12:28 Medications & Allergies - Medications Allergies/Adverse Reactions: Allergies No Known Allergies Allergy (Verified 09/10/21 10:04) Home Medications: Home Medications Medication Instructions Recorded Confirmed Last Taken Type No Known Home Medications [No 09/10/21 09/10/21 Unknown History Reported Home Medications] Active Medications: Generic Name Dose Route Start Last Admin Trade Name Freq PRN Reason Stop Dose Admin Acetaminophen 650 mg 09/07/21 22:17 09/10/21 18:26 Acetaminophen 325 Mg Tab PO 650 mg Q4H PRN Administration Pain MILD(1-3)/Fever >100.5/JOHNSON Calcitriol 0.5 mcg 09/11/21 11:00 09/15/21 09:15 Calcitriol 0.5 Mcg Cap PO 0.5 mcg QDAY MARK Administration Carvedilol 6.25 mg 09/13/21 11:00 09/15/21 22:11 Carvedilol 6.25 Mg Tab PO 6.25 mg BID MARK Administration Heparin Sodium (Porcine) 5,000 unit 09/08/21 06:00 09/16/21 07:05 Heparin 5,000 Unit/1 Ml Vial SUB-Q Not Given Q8HR MARK Hydralazine HCl 10 mg 09/12/21 00:41 09/14/21 13:15 Hydralazine 20 Mg/1 Ml Inj IV 10 mg Q6H PRN Administration Hypertension Sodium Chloride 1,000 mls @ 125 mls/hr 09/07/21 22:45 09/15/21 05:54 Nacl 0.9% 1000 Ml IV 125 mls/hr DIRECT MARK Administration Sodium Chloride 100 mls @ 999 mls/hr 09/13/21 09:37 Nacl 0.9% IV AYAH PRN Hypotension Ondansetron HCl 4 mg 09/07/21 22:17 09/15/21 19:56 Ondansetron 4 Mg/2 Ml Inj IV 4 mg Q8H PRN Administration Nausea And Vomiting Scopolamine 1 each 09/14/21 10:00 09/14/21 13:24 Scopolamine Transdermal Patch 72 Hr TD 1 each Q3D MARK Administration Sodium Chloride 10 ml 09/07/21 22:00 09/15/21 22:12 Sodium Chloride 0.9% 10 Ml Flush Syringe IV 10 ml BID MARK Administration Sodium Chloride 10 ml 09/07/21 21:45 09/10/21 15:09 Sodium Chloride 0.9% 10 Ml Flush Syringe IV 10 ml PRN PRN Administration LINE FLUSH
[2021-09-16] MEDS: carvediloL 6.25 MG TAB PO SCH ×2 (10:19→21:53)
[2021-09-16] MEDS: CALCITRIOL 0.5 MCG CAP PO SCH (10:20)
--- NOTE | 2021-09-16 14:54 | Progress Note ---
Subjective Date of service: 09/16/21 Principal diagnosis: jennifer Objective - Constitutional Vitals: Vital Signs - 12hr 09/16/21 09/16/21 09/16/21 08:09 08:59 11:34 Temperature 98.9 F 98.2 F Pulse Rate 59 L 70 Respiratory 18 18 Rate Blood Pressure 172/104 141/87 O2 Sat by Pulse 95 99 95 Oximetry General appearance: Present: no acute distress, well-nourished - EENT Eyes: PERRL, EOM intact ENT: hearing intact, clear oral mucosa Ears: bilateral: normal - Neck Neck: supple, normal ROM - Respiratory Respiratory effort: normal Respiratory: bilateral: CTA - Breasts Breasts: normal - Cardiovascular Rhythm: regular Heart Sounds: Present: S1 & S2. Absent: gallop, rub Extremities: pulses intact, No edema, normal color, Full ROM - Gastrointestinal General gastrointestinal: Present: soft, non-tender, non-distended, normal bowel sounds - Genitourinary Male genitourinary: normal - Integumentary Integumentary: clear, warm, dry - Musculoskeletal Musculoskeletal: 1, strength equal bilaterally - Neurologic Neurologic: moves all extremities - Psychiatric Psychiatric: memory intact, appropriate mood/affect, intact judgment & insight - Labs CBC & Chem 7: 09/16/21 05:22 09/16/21 05:22 Labs: Abnormal lab results 09/16/21 09/16/21 Range/Units 05:22 05:22 Hgb 10.8 L (11.8-15.2) gm/dl Hct 32.1 L D (35.5-45.6) % RDW 12.6 L (13.2-15.2) % Real % (Auto) 10.9 H (0.0-7.3) % Real # (Auto) 1.0 H (0.0-0.8) K/mm3 Seg Neutrophils % 71.0 H (40.0-70.0) % Sodium 146 H D (137-145) mmol/L BUN 31 H (9-20) mg/dL Creatinine 8.1 H (0.8-1.3) mg/dL Glucose 102 H (75-100) mg/dL HEART Score - HEART Score Troponin: Troponin T 0.197 ng/mL (0.00-0.029) H* 09/09/21 07:38
[2021-09-16] MEDS: ONDANSETRON 4 MG/2 ML INJ IV PRN (20:10)
[2021-09-17] MEDS: hydrALAZINE 20 MG/1 ML INJ IV PRN (02:19)
[2021-09-17] MEDS: HEPARIN 5,000 UNIT/1 ML VIAL SUB-Q SCH ×3 (05:51→21:37)
[2021-09-17] MEDS: ACETAMINOPHEN 325 MG TAB PO PRN ×2 (05:51→12:45)
--- NOTE | 2021-09-17 09:23 | Progress Note ---
Assessment and Plan Impression * GRAYSON vs underlying advanced CKD * Right hydronephrosis * Metabolic acidosis * Hyponatremia * Hypocalcemia Plan: * HD today. Continue HD TTS - UF as tolerated * Outpatient HD clinic placement in progress * Continue calcitriol * Renal diet * Epogen TIW prn * Dose medications * Note patient's interest in peritoneal dialysis. Currently, patient is not ESRD. As such, will maintain intermittent HD and monitor for renal recovery for 90 days. However, once ESRD diagnosis has been established and patient has documented compliance will consider transition to PD at that time. Subjective Date of service: 09/17/21 Principal diagnosis: grayson Interval history: Patient seen on dialysis. Reports that swelling is better. Objective - Vital Signs Vital signs: Vital Signs - 12hr 09/16/21 09/17/21 09/17/21 23:44 00:03 04:00 Temperature 97.7 F 99.3 F Pulse Rate 78 84 Respiratory 18 18 Rate Blood Pressure 171/107 140/78 Blood Pressure [Right] O2 Sat by Pulse 96 98 93 Oximetry 09/17/21 09/17/21 09/17/21 05:51 08:56 08:57 Temperature 97.9 F 98.6 F Pulse Rate 86 93 H Respiratory 18 18 Rate Blood Pressure Blood Pressure 140/78 [Right] O2 Sat by Pulse 96 Oximetry - General Appearance General appearance: well-developed, well-nourished EENT: ATNC Respiratory: Present: Clear to Ascultation Cardiology: regular, S1S2 Gastrointestinal: normal, no tenderness, no distended Integumentary: no rash, warm and dry Neurologic: no focal deficit, alert and oriented x3 Psychiatric: cooperative - Lab 09/16/21 05:22 09/16/21 05:22 Most recent lab results Calcium 9.8 mg/dL (8.4-10.2) 09/16/21 05:22 Phosphorus 6.80 mg/dL (2.5-4.5) H 09/11/21 05:40 Urine Creatinine 310.9 mg/dL (0.1-20.0) H 09/08/21 12:28 Urine Sodium 29 mmol/L 09/08/21 12:28 Urine Total Protein 111 mg/dL (5-11.8) H 09/08/21 12:28 Medications & Allergies - Medications Allergies/Adverse Reactions: Allergies No Known Allergies Allergy (Verified 09/10/21 10:04) Home Medications: Home Medications Medication Instructions Recorded Confirmed Last Taken Type No Known Home Medications [No 09/10/21 09/10/21 Unknown History Reported Home Medications] Active Medications: Generic Name Dose Route Start Last Admin Trade Name Kya PRN Reason Stop Dose Admin Acetaminophen 650 mg 09/07/21 22:17 09/17/21 05:51 Acetaminophen 325 Mg Tab PO 650 mg Q4H PRN Administration Pain MILD(1-3)/Fever >100.5/JOHNSON Calcitriol 0.5 mcg 09/11/21 11:00 09/16/21 10:20 Calcitriol 0.5 Mcg Cap PO 0.5 mcg QDAY MARK Administration Carvedilol 6.25 mg 09/13/21 11:00 09/16/21 21:53 Carvedilol 6.25 Mg Tab PO 6.25 mg BID MARK Administration Heparin Sodium (Porcine) 5,000 unit 09/08/21 06:00 09/17/21 05:51 Heparin 5,000 Unit/1 Ml Vial SUB-Q 5,000 unit Q8HR MARK Administration Hydralazine HCl 10 mg 09/12/21 00:41 09/17/21 02:19 Hydralazine 20 Mg/1 Ml Inj IV 10 mg Q6H PRN Administration Hypertension Sodium Chloride 100 mls @ 999 mls/hr 09/13/21 09:37 Nacl 0.9% IV AYAH PRN Hypotension Ondansetron HCl 4 mg 09/07/21 22:17 09/16/21 20:10 Ondansetron 4 Mg/2 Ml Inj IV 4 mg Q8H PRN Administration Nausea And Vomiting Scopolamine 1 each 09/14/21 10:00 09/14/21 13:24 Scopolamine Transdermal Patch 72 Hr TD 1 each Q3D MARK Administration Sodium Chloride 10 ml 09/07/21 22:00 09/16/21 21:53 Sodium Chloride 0.9% 10 Ml Flush Syringe IV 10 ml BID MARK Administration Sodium Chloride 10 ml 09/07/21 21:45 09/10/21 15:09 Sodium Chloride 0.9% 10 Ml Flush Syringe IV 10 ml PRN PRN Administration LINE FLUSH
[2021-09-17] MEDS: CALCITRIOL 0.5 MCG CAP PO SCH (12:45)
[2021-09-17] MEDS: carvediloL 6.25 MG TAB PO SCH ×2 (12:45→21:36)
[2021-09-17] MEDS: SCOPOLAMINE TRANSDERMAL PATCH 72 HR TD SCH (12:46)
[2021-09-17] MEDS: ONDANSETRON 4 MG/2 ML INJ IV PRN (21:42)
[2021-09-18] MEDS: HEPARIN 5,000 UNIT/1 ML VIAL SUB-Q SCH ×3 (05:52→22:07)
--- NOTE | 2021-09-18 07:18 | Progress Note ---
Assessment and Plan (1) ESRD needing hemodialysis Current Visit: Yes Status: Acute Qualifiers: Acute renal failure type: unspecified Qualified Code(s): N17.9 - Acute kidney failure, unspecified Plan to address problem: Nephrology note reviewed Patient needs hemodialysis chair for end-stage renal disease (2) Acute hyponatremia Current Visit: Yes Status: Acute Plan to address problem: Rule out volume overload secondary to GRAYSON versus ESRD Improving Monitor electrolytes (4) elevated troponins in the setting of renal failure Current Visit: Yes Status: Acute Plan to address problem: Possibly secondary to the renal failure. Patient has denied any chest pain. Cardiology evaluated and signed off (5) persistent nausea and vomiting Current Visit: Yes Status: Acute Plan to address problem: Unable to eat due to persistent nausea patient placed on IV Zofran as needed. Possibly from uremia and narcotics. Avoid all narcotic pain meds. will give a trial of scopolamine patch (6) mild right-sided hydronephrosis with stones Will need urology evaluation (7) acute cystitis Treated with Rocephin (8) DVT prophylaxis Current Visit: Yes Status: Acute Plan to address problem: Patient placed on subcutaneous heparin. Discharge disposition: Nephrology recommending outpatient dialysis arrangements, discussed with the case management. Subjective Date of service: 09/17/21 Principal diagnosis: End-stage renal disease needing hemodialysis Interval history: Patient waiting for hemodialysis chair Objective - Constitutional Vitals: Vital Signs - 12hr 09/17/21 09/17/21 09/17/21 19:30 19:33 19:35 Temperature 98.3 F Pulse Rate 70 75 Respiratory 18 Rate Blood Pressure 137/91 O2 Sat by Pulse 96 98 Oximetry 09/17/21 09/18/21 23:29 04:23 Temperature 98.8 F 97.5 F L Pulse Rate 82 67 Respiratory 18 18 Rate Blood Pressure 148/81 147/91 O2 Sat by Pulse 94 94 Oximetry General appearance: Present: no acute distress, well-nourished - EENT Eyes: PERRL, EOM intact ENT: hearing intact, clear oral mucosa Ears: bilateral: normal - Neck Neck: supple, normal ROM - Respiratory Respiratory effort: normal Respiratory: bilateral: CTA - Breasts Breasts: normal - Cardiovascular Heart rate: 78 Rhythm: regular Heart Sounds: Present: S1 & S2. Absent: gallop, rub Extremities: pulses intact, No edema, normal color, Full ROM - Gastrointestinal General gastrointestinal: Present: soft, non-tender, non-distended, normal bowel sounds - Genitourinary Male genitourinary: normal - Integumentary Integumentary: clear, warm, dry - Musculoskeletal Musculoskeletal: 1, strength equal bilaterally - Neurologic Neurologic: moves all extremities - Psychiatric Psychiatric: memory intact, appropriate mood/affect, intact judgment & insight - Labs CBC & Chem 7: 09/16/21 05:22 09/16/21 05:22 HEART Score - HEART Score Troponin: Troponin T 0.197 ng/mL (0.00-0.029) H* 09/09/21 07:38
--- NOTE | 2021-09-18 09:09 | Progress Note ---
Assessment and Plan Assessment and plan: ESRD Hyponatremia Elevated troponin Persistent nausea and vomiting Acute cystitis 09/18/2021. Patient awaits outpatient hemodialysis chair. Continue IV antibiotics for cystitis. Continue antiemetics for N/V. History Interval history: No new issues overnight. Hospitalist Physical - Constitutional Vitals: Temp Pulse Resp BP Pulse Ox 97.5 F L 67 18 147/91 99 09/18/21 04:23 09/18/21 04:23 09/18/21 04:23 09/18/21 04:23 09/18/21 07:54 General appearance: Present: no acute distress, well-nourished - EENT Eyes: Present: PERRL, EOM intact ENT: hearing intact, clear oral mucosa, dentition normal - Neck Neck: Present: supple, normal ROM - Respiratory Respiratory effort: normal Respiratory: bilateral: CTA - Cardiovascular Rhythm: regular Heart Sounds: Present: S1 & S2. Absent: gallop, rub - Extremities Extremities: no ischemia, No edema, Full ROM - Abdominal General gastrointestinal: soft, non-tender, non-distended, normal bowel sounds - Integumentary Integumentary: Present: clear, warm, dry - Neurologic Neurologic: CNII-XII intact, moves all extremities HEART Score - HEART Score Troponin: Troponin T 0.197 ng/mL (0.00-0.029) H* 09/09/21 07:38 Results - Labs CBC & Chem 7: 09/16/21 05:22 09/16/21 05:22 Labs: Laboratory Last Values WBC 9.4 K/mm3 (4.5-11.0) 09/16/21 05:22 RBC 3.72 M/mm3 (3.65-5.03) 09/16/21 05:22 Hgb 10.8 gm/dl (11.8-15.2) L 09/16/21 05:22 Hct 32.1 % (35.5-45.6) L D 09/16/21 05:22 MCV 86 fl (84-94) 09/16/21 05:22 MCH 29 pg (28-32) 09/16/21 05:22 MCHC 34 % (32-34) 09/16/21 05:22 RDW 12.6 % (13.2-15.2) L 09/16/21 05:22 Plt Count 246 K/mm3 (140-440) 09/16/21 05:22 Lymph % (Auto) 16.1 % (13.4-35.0) 09/16/21 05:22 [place] % (Auto) 10.9 % (0.0-7.3) H 09/16/21 05:22 Eos % (Auto) 1.3 % (0.0-4.3) 09/16/21 05:22 Baso % (Auto) 0.7 % (0.0-1.8) 09/16/21 05:22 Lymph # (Auto) 1.5 K/mm3 (1.2-5.4) 09/16/21 05:22 [place] # (Auto) 1.0 K/mm3 (0.0-0.8) H 09/16/21 05:22 Eos # (Auto) 0.1 K/mm3 (0.0-0.4) 09/16/21 05:22 Baso # (Auto) 0.1 K/mm3 (0.0-0.1) 09/16/21 05:22 Seg Neutrophils % 71.0 % (40.0-70.0) H 09/16/21 05:22 Seg Neutrophils # 6.7 K/mm3 (1.8-7.7) 09/16/21 05:22 Sodium 146 mmol/L (137-145) H D 09/16/21 05:22 Potassium 3.7 mmol/L (3.6-5.0) 09/16/21 05:22 Chloride 106.8 mmol/L (98-107) 09/16/21 05:22 Carbon Dioxide 25 mmol/L (22-30) 09/16/21 05:22 Anion Gap 18 mmol/L 09/16/21 05:22 BUN 31 mg/dL (9-20) H 09/16/21 05:22 Creatinine 8.1 mg/dL (0.8-1.3) H 09/16/21 05:22 Estimated GFR 9 ml/min 09/16/21 05:22 BUN/Creatinine Ratio 4 % 09/16/21 05:22 Glucose 102 mg/dL (75-100) H 09/16/21 05:22 POC Glucose 93 mg/dL (70-105) 09/18/21 07:51 Uric Acid 6.1 mg/dL (3.5-7.6) D 09/11/21 05:40 Calcium 9.8 mg/dL (8.4-10.2) 09/16/21 05:22 Phosphorus 6.80 mg/dL (2.5-4.5) H 09/11/21 05:40 Total Bilirubin 0.30 mg/dL (0.1-1.2) 09/07/21 19:51 AST 33 units/L (5-40) 09/07/21 19:51 ALT 123 units/L (7-56) H 09/07/21 19:51 Alkaline Phosphatase 49 units/L (35-129) 09/07/21 19:51 Troponin T 0.197 ng/mL (0.00-0.029) H* 09/09/21 07:38 Total Protein 7.1 g/dL (6.3-8.2) 09/07/21 19:51 Albumin 3.7 g/dL (3.9-5) L 09/07/21 19:51 Albumin/Globulin Ratio 1.1 % 09/07/21 19:51 Triglycerides 220 mg/dL (2-149) H 09/07/21 20:51 Cholesterol 194 mg/dL (50-199) 09/07/21 20:51 LDL Cholesterol Direct 108 mg/dL (50-130) 09/07/21 20:51 HDL Cholesterol 46 mg/dL (40-59) 09/07/21 20:51 Cholesterol/HDL Ratio 4.21 % 09/07/21 20:51 25-OH Vitamin D Total 10 ng/mL (30-100) L 09/08/21 15:50 25-Hydroxy Vitamin D2 <4 ng/mL 09/08/21 15:50 25-Hydroxy Vitamin D3 10 ng/mL 09/08/21 15:50 PTH Intact 400.7 pg/mL (15-65) H 09/09/21 14:56 Urine Color Yellow (Yellow) 09/08/21 11:46 Urine Turbidity Slightly-cloudy (Clear) 09/08/21 11:46 Urine pH 5.0 (5.0-7.0) 09/08/21 11:46 Ur Specific [place] 1.014 (1.003-1.030) 09/08/21 11:46 Urine Protein 100 mg/dl mg/dL (Negative) 09/08/21 11:46 Urine Glucose (UA) 50 mg/dL (Negative) 09/08/21 11:46 Urine Ketones Neg mg/dL (Negative) 09/08/21 11:46 Urine Blood Lg (Negative) 09/08/21 11:46 Urine Nitrite Neg (Negative) 09/08/21 11:46 Urine Bilirubin Neg (Negative) 09/08/21 11:46 Urine Urobilinogen < 2.0 mg/dL (<2.0) 09/08/21 11:46 Ur Leukocyte Esterase Sm (Negative) 09/08/21 11:46 Urine WBC (Auto) 20.0 /HPF (0.0-6.0) H 09/08/21 11:46 Urine RBC (Auto) 3.0 /HPF (0.0-6.0) 09/08/21 11:46 U Epithel Cells (Auto) 1.0 /HPF (0-13.0) 09/08/21 11:46 Urine Bacteria (Auto) 1+ /HPF (Negative) 09/08/21 11:46 Urine Mucus Few /HPF 09/08/21 11:46 Urine Creatinine 310.9 mg/dL (0.1-20.0) H 09/08/21 12:28 Urine Sodium 29 mmol/L 09/08/21 12:28 Urine Total Protein 111 mg/dL (5-11.8) H 09/08/21 12:28 Immunofix Electrophor see below 09/08/21 15:50 JEVON Screen Negative (Negative) 09/08/21 15:50 SARS-CoV-2 (PCR) Negative (Negative) 09/09/21 10:06 Hepatitis A IgM Ab Non-reactive (NonReactive) 09/08/21 15:50 Hep Bs Antigen Nonreactive (Negative) 09/08/21 15:50 Hep B Core IgM Ab Non-reactive (NonReactive) 09/08/21 15:50 Hepatitis C Antibody Non-reactive (NonReactive) 09/08/21 15:50 Hirsch/IV: Voiding Method Toilet Active Medications - Current Medications Current Medications: Generic Name Dose Route Start Last Admin Trade Name Freq PRN Reason Stop Dose Admin Acetaminophen 650 mg 09/07/21 22:17 09/17/21 12:45 Acetaminophen 325 Mg Tab PO 650 mg Q4H PRN Administration Pain MILD(1-3)/Fever >100.5/JOHNSON Calcitriol 0.5 mcg 09/11/21 11:00 09/17/21 12:45 Calcitriol 0.5 Mcg Cap PO 0.5 mcg QDAY MARK Administration Carvedilol 6.25 mg 09/13/21 11:00 09/17/21 21:36 Carvedilol 6.25 Mg Tab PO 6.25 mg BID MARK Administration Heparin Sodium (Porcine) 5,000 unit 09/08/21 06:00 09/18/21 05:52 Heparin 5,000 Unit/1 Ml Vial SUB-Q 5,000 unit Q8HR MARK Administration Hydralazine HCl 10 mg 09/12/21 00:41 09/17/21 02:19 Hydralazine 20 Mg/1 Ml Inj IV 10 mg Q6H PRN Administration Hypertension Sodium Chloride 100 mls @ 999 mls/hr 09/13/21 09:37 Nacl 0.9% IV AYAH PRN Hypotension Ondansetron HCl 4 mg 09/07/21 22:17 09/17/21 21:42 Ondansetron 4 Mg/2 Ml Inj IV 4 mg Q8H PRN Administration Nausea And Vomiting Scopolamine 1 each 09/14/21 10:00 09/17/21 12:46 Scopolamine Transdermal Patch 72 Hr TD Not Given Q3D MARK Sodium Chloride 10 ml 09/07/21 22:00 09/17/21 21:40 Sodium Chloride 0.9% 10 Ml Flush Syringe IV 10 ml BID MARK Administration Sodium Chloride 10 ml 09/07/21 21:45 09/10/21 15:09 Sodium Chloride 0.9% 10 Ml Flush Syringe IV 10 ml PRN PRN Administration LINE FLUSH Nutrition/Malnutrition Assess - Dietary Evaluation Nutrition/Malnutrition Findings: Nutrition Notes Start: 09/16/21 10:37 Freq: Status: Active Protocol: Document 09/16/21 10:37 FLAQUITA (Rec: 09/16/21 10:39 FLAQUITA [id number]) Nutrition Notes Need for Assessment generated from: LOS Initial or Follow up Brief Note Current Diet Renal Height 6 ft 2 in Weight 102.6 kg [place] Body Weight (kg) 86.36 BMI 29.0 Weight Status Overweight Subjective/Other Information Pt screened for LOS. He has consumed 100% of 2 recorded meals. D/C packet submitted yesterday. Burn Absent Trauma Absent Minimum of two criteria No Nutrition Intervention Revisit per MD consult or patient Sign Off request:
--- NOTE | 2021-09-18 09:32 | Progress Note ---
Assessment and Plan Impression * GRAYSON vs underlying advanced CKD * Right hydronephrosis * Metabolic acidosis * Hyponatremia * Hypocalcemia Plan: * Continue HD TTS - UF as tolerated * Outpatient HD clinic placement in progress * Continue calcitriol * Renal diet * Epogen TIW prn * Dose medications * Note patient's interest in peritoneal dialysis. Currently, patient is not ESRD. As such, will maintain intermittent HD and monitor for renal recovery for 90 days. However, once ESRD diagnosis has been established and patient has documented compliance will consider transition to PD at that time. Subjective Date of service: 09/18/21 Principal diagnosis: End-stage renal disease needing hemodialysis Interval history: Patient has no complaints today. Objective - Vital Signs Vital signs: Vital Signs - 12hr 09/17/21 09/18/21 09/18/21 23:29 04:23 07:54 Temperature 98.8 F 97.5 F L Pulse Rate 82 67 Respiratory 18 18 Rate Blood Pressure 148/81 147/91 O2 Sat by Pulse 94 94 99 Oximetry - General Appearance General appearance: well-developed, well-nourished EENT: ATNC Respiratory: Present: Clear to Ascultation Cardiology: regular, S1S2 Gastrointestinal: normal, no tenderness, no distended Integumentary: no rash, warm and dry Psychiatric: cooperative - Lab 09/16/21 05:22 09/16/21 05:22 Most recent lab results Calcium 9.8 mg/dL (8.4-10.2) 09/16/21 05:22 Phosphorus 6.80 mg/dL (2.5-4.5) H 09/11/21 05:40 Urine Creatinine 310.9 mg/dL (0.1-20.0) H 09/08/21 12:28 Urine Sodium 29 mmol/L 09/08/21 12:28 Urine Total Protein 111 mg/dL (5-11.8) H 09/08/21 12:28 Medications & Allergies - Medications Allergies/Adverse Reactions: Allergies No Known Allergies Allergy (Verified 09/10/21 10:04) Home Medications: Home Medications Medication Instructions Recorded Confirmed Last Taken Type No Known Home Medications [No 09/10/21 09/10/21 Unknown History Reported Home Medications] Active Medications: Generic Name Dose Route Start Last Admin Trade Name Freq PRN Reason Stop Dose Admin Acetaminophen 650 mg 09/07/21 22:17 09/17/21 12:45 Acetaminophen 325 Mg Tab PO 650 mg Q4H PRN Administration Pain MILD(1-3)/Fever >100.5/JOHNSON Calcitriol 0.5 mcg 09/11/21 11:00 09/17/21 12:45 Calcitriol 0.5 Mcg Cap PO 0.5 mcg QDAY MARK Administration Carvedilol 6.25 mg 09/13/21 11:00 09/17/21 21:36 Carvedilol 6.25 Mg Tab PO 6.25 mg BID MARK Administration Heparin Sodium (Porcine) 5,000 unit 09/08/21 06:00 09/18/21 05:52 Heparin 5,000 Unit/1 Ml Vial SUB-Q 5,000 unit Q8HR MARK Administration Hydralazine HCl 10 mg 09/12/21 00:41 09/17/21 02:19 Hydralazine 20 Mg/1 Ml Inj IV 10 mg Q6H PRN Administration Hypertension Sodium Chloride 100 mls @ 999 mls/hr 09/13/21 09:37 Nacl 0.9% IV AYAH PRN Hypotension Ondansetron HCl 4 mg 09/07/21 22:17 09/17/21 21:42 Ondansetron 4 Mg/2 Ml Inj IV 4 mg Q8H PRN Administration Nausea And Vomiting Scopolamine 1 each 09/14/21 10:00 09/17/21 12:46 Scopolamine Transdermal Patch 72 Hr TD Not Given Q3D MARK Sodium Chloride 10 ml 09/07/21 22:00 09/17/21 21:40 Sodium Chloride 0.9% 10 Ml Flush Syringe IV 10 ml BID MARK Administration Sodium Chloride 10 ml 09/07/21 21:45 09/10/21 15:09 Sodium Chloride 0.9% 10 Ml Flush Syringe IV 10 ml PRN PRN Administration LINE FLUSH
[2021-09-18] MEDS: CALCITRIOL 0.5 MCG CAP PO SCH (11:39)
[2021-09-18] MEDS: carvediloL 6.25 MG TAB PO SCH ×2 (11:39→22:07)
[2021-09-19] MEDS: HEPARIN 5,000 UNIT/1 ML VIAL SUB-Q SCH (05:33)
--- NOTE | 2021-09-19 08:59 | Progress Note ---
Assessment and Plan Impression * GRAYSON vs underlying advanced CKD * Right hydronephrosis * Metabolic acidosis * Hyponatremia * Hypocalcemia Plan: * Continue HD TTS - UF as tolerated * Outpatient HD clinic placement in progress * Continue calcitriol * Renal diet * Epogen TIW prn * Dose medications * Note patient's interest in peritoneal dialysis. Currently, patient is not ESRD. As such, will maintain intermittent HD and monitor for renal recovery for 90 days. However, once ESRD diagnosis has been established and patient has documented compliance will consider transition to PD at that time. Subjective Date of service: 09/19/21 Principal diagnosis: End-stage renal disease needing hemodialysis Objective - Vital Signs Vital signs: Vital Signs - 12hr 09/18/21 09/18/21 09/19/21 21:20 23:00 02:46 Temperature 98.4 F Pulse Rate 67 69 Respiratory 18 Rate Blood Pressure 159/70 O2 Sat by Pulse 91 99 Oximetry 09/19/21 09/19/21 05:06 08:00 Temperature 98.4 F 98.9 F Pulse Rate 62 75 Respiratory 18 20 Rate Blood Pressure 131/69 151/95 O2 Sat by Pulse 94 95 Oximetry - Lab 09/16/21 05:22 09/16/21 05:22 Most recent lab results Calcium 9.8 mg/dL (8.4-10.2) 09/16/21 05:22 Phosphorus 6.80 mg/dL (2.5-4.5) H 09/11/21 05:40 Urine Creatinine 310.9 mg/dL (0.1-20.0) H 09/08/21 12:28 Urine Sodium 29 mmol/L 09/08/21 12:28 Urine Total Protein 111 mg/dL (5-11.8) H 09/08/21 12:28 Medications & Allergies - Medications Allergies/Adverse Reactions: Allergies No Known Allergies Allergy (Verified 09/10/21 10:04) Home Medications: Home Medications Medication Instructions Recorded Confirmed Last Taken Type No Known Home Medications [No 09/10/21 09/10/21 Unknown History Reported Home Medications] Active Medications: Generic Name Dose Route Start Last Admin Trade Name Freq PRN Reason Stop Dose Admin Acetaminophen 650 mg 09/07/21 22:17 09/17/21 12:45 Acetaminophen 325 Mg Tab PO 650 mg Q4H PRN Administration Pain MILD(1-3)/Fever >100.5/JOHNSON Calcitriol 0.5 mcg 09/11/21 11:00 09/18/21 11:39 Calcitriol 0.5 Mcg Cap PO 0.5 mcg QDAY MARK Administration Carvedilol 6.25 mg 09/13/21 11:00 09/18/21 22:07 Carvedilol 6.25 Mg Tab PO 6.25 mg BID MARK Administration Heparin Sodium (Porcine) 5,000 unit 09/08/21 06:00 09/19/21 05:33 Heparin 5,000 Unit/1 Ml Vial SUB-Q 5,000 unit Q8HR MARK Administration Hydralazine HCl 10 mg 09/12/21 00:41 09/17/21 02:19 Hydralazine 20 Mg/1 Ml Inj IV 10 mg Q6H PRN Administration Hypertension Sodium Chloride 100 mls @ 999 mls/hr 09/13/21 09:37 Nacl 0.9% IV AYAH PRN Hypotension Ondansetron HCl 4 mg 09/07/21 22:17 09/17/21 21:42 Ondansetron 4 Mg/2 Ml Inj IV 4 mg Q8H PRN Administration Nausea And Vomiting Scopolamine 1 each 09/14/21 10:00 09/17/21 12:46 Scopolamine Transdermal Patch 72 Hr TD Not Given Q3D MARK Sodium Chloride 10 ml 09/07/21 22:00 09/18/21 22:07 Sodium Chloride 0.9% 10 Ml Flush Syringe IV 10 ml BID MARK Administration Sodium Chloride 10 ml 09/07/21 21:45 09/10/21 15:09 Sodium Chloride 0.9% 10 Ml Flush Syringe IV 10 ml PRN PRN Administration LINE FLUSH
--- NOTE | 2021-09-19 10:36 | Discharge Summary ---
Providers - Providers Date of Admission: 09/09/21 11:00 Date of discharge: 09/19/21 Attending physician: CHUCK CASTILLO 09/07/21 22:02 Consult to Physician [CONS] Stat Comment: NICHELLE Murray spoke with Dr. Bauman @ [id number] Consulting Provider: KRISTOPHER BAUMAN Physician Instructions: Admit, IV Fluids; Bladder scan Reason For Exam: Acute renal failure; dehydration 09/08/21 09:36 Consult to Physician [CONS] Routine Comment: Consulting Provider: MELINDA VERA Physician Instructions: Reason For Exam: TYPE 2 ND 09/08/21 13:22 Consult to Physician [CONS] Routine Comment: Consulting Provider: SABINO SERRA Physician Instructions: Reason For Exam: GRAYSON NEED VASCATH FOR HD Primary care physician: BRUSH FILLER HAND Hospitalization Reason for admission: GRAYSON Condition: Fair Hospital course: Is a 40-year-old male who presented through the emergency department with chief complaint of weakness and shortness of breath. On admission, patient was noted to have significant renal failure with BUN was 171 creatinine was 19.9 with bicarbonate 17 and sodium of 129. The patient was admitted with diagnosis of acute renal failure secondary acute kidney injury, mild metabolic acidosis, hyponatremia and hypertension. The patient was seen by nephrology and cardiology in consultation. Patient was also noted to have elevated troponin which was felt to be secondary to the acute renal failure. Cardiology recommended echocardiogram which revealed EF of 55 to 60% with borderline concentric left ventricular hypertrophy. Nephrology recommended PermCath placement and the initiation of hemodialysis. Patient stabilized from volume status and renal perspective with regards to regularly scheduled hemodialysis. Nephrology ultimately reported that patient is not ESRD. Patient reported interest in peritoneal dialysis. However, will maintain intermittent HD and monitor for renal recovery for 90 days. However, once ESRD diagnosis has been established and patient has documented compliance will consider transition to PD at that time. I discussed the case with nephrology who was in agreement to have the patient discharged and return to the ER intermittently for hemodialysis as needed. Patient is to return to the ER with any signs of edema or shortness of breath. Patient is unfunded and unable to get outpatient hemodialysis chair. Therefore as noted will need to have regular assessments through the emergency room for hemodialysis. I have instructed the patient to return back to the emergency department on Thursday. Patient has received hemodialysis for today. Dedicated discharge time 35 minutes. Disposition: 30 STILL A PATIENT Final Discharge Diagnosis (Prints w/discharge instructions): Acute kidney injury versus underlying advanced CKD, metabolic acidosis, hyponatremia, hypocalcemia Core Measure Documentation - Palliative Care Palliative Care/ Comfort Measures: Not Applicable - Core Measures Any of the following diagnoses?: none Exam - Constitutional Vitals: Temp Pulse Resp BP Pulse Ox 98.9 F 75 20 151/95 95 09/19/21 08:00 09/19/21 08:00 09/19/21 08:00 09/19/21 08:00 09/19/21 08:00 General appearance: Present: no acute distress, well-nourished - EENT Eyes: Present: PERRL ENT: hearing intact, clear oral mucosa - Neck Neck: Present: supple, normal ROM - Respiratory Respiratory effort: normal Respiratory: bilateral: CTA - Cardiovascular Heart Sounds: Present: S1 & S2. Absent: rub, click - Extremities Extremities: pulses symmetrical, No edema Peripheral Pulses: within normal limits - Abdominal General gastrointestinal: Present: soft, non-tender, non-distended, normal bowel sounds Male genitourinary: Present: normal - Integumentary Integumentary: Present: clear, warm, dry - Musculoskeletal Musculoskeletal: gait normal, strength equal bilaterally - Psychiatric Psychiatric: appropriate mood/affect, intact judgment & insight - Neurologic Neurologic: CNII-XII intact, moves all extremities Plan Activity: advance as tolerated Weight Bearing Status: Weight Bear as Tolerated Diet: renal Additional Instructions: F/U in ED Thursday for BMP check and need for HD Follow up with: PRIMARY CARE, [Primary Care Provider] - 3-5 Days Prescriptions: carvediloL [Coreg] 6.25 mg PO BID #60 tablet NIFEdipine XL [Procardia Xl] 30 mg PO Q12HR #60 tab calcitrioL [Rocaltrol] 0.5 mcg PO QDAY #30 capsule
[2021-09-19 17:10] VITALS: BP 163/100
== END 2021-09-19 13:40 | disposition home or self-care (01) | DRG 673 ==
LOC: ED 16:42 → 4A 22:42 → OBSVTOIN 09-09 11:00
PROVIDERS: ADMIT Internal Medicine Geriatric Medicine; ATTEND Hospitalist
PROC: 0JH63XZ Insertion of Tunneled Vascular Access Device into Chest Subcutaneous Tissue and Fascia, Percutaneous Approach (ICD-10-PCS; principal; 2021-09-09)
PROC: 02H633Z Insertion of Infusion Device into Right Atrium, Percutaneous Approach (ICD-10-PCS; 2021-09-09)
PROC: B5181ZA Fluoroscopy of Superior Vena Cava using Low Osmolar Contrast, Guidance (ICD-10-PCS; 2021-09-09)
PROC: B548ZZA Ultrasonography of Superior Vena Cava, Guidance (ICD-10-PCS; 2021-09-09)
PROC: 5A1D70Z Performance of Urinary Filtration, Intermittent, Less than 6 Hours Per Day (ICD-10-PCS; 2021-09-09)
PROC: 5A1D70Z Performance of Urinary Filtration, Intermittent, Less than 6 Hours Per Day (ICD-10-PCS; 2021-09-10)
PROC: 5A1D70Z Performance of Urinary Filtration, Intermittent, Less than 6 Hours Per Day (ICD-10-PCS; 2021-09-11)
PROC: 5A1D70Z Performance of Urinary Filtration, Intermittent, Less than 6 Hours Per Day (ICD-10-PCS; 2021-09-12)
PROC: 5A1D70Z Performance of Urinary Filtration, Intermittent, Less than 6 Hours Per Day (ICD-10-PCS; 2021-09-13)
PROC: 5A1D70Z Performance of Urinary Filtration, Intermittent, Less than 6 Hours Per Day (ICD-10-PCS; 2021-09-14)
PROC: 5A1D70Z Performance of Urinary Filtration, Intermittent, Less than 6 Hours Per Day (ICD-10-PCS; 2021-09-17)
PROC: 5A1D70Z Performance of Urinary Filtration, Intermittent, Less than 6 Hours Per Day (ICD-10-PCS; 2021-09-19)
DX: N17.9 Acute kidney failure, unspecified (principal); I21.A1 Myocardial infarction type 2; E87.1 Hypo-osmolality and hyponatremia; N30.00 Acute cystitis without hematuria; E87.2 Acidosis; E86.0 Dehydration; Z20.822 Contact with and (suspected) exposure to COVID-19; N13.6 Pyonephrosis; E83.51 Hypocalcemia; I12.9 Hypertensive chronic kidney disease with stage 1 through stage 4 chronic kidney disease, or unspecified chronic kidney disease; N18.9 Chronic kidney disease, unspecified
CPT/HCPCS: 36415; 36558; 71045; 74176; 76770; 77001; 80048; 80053; 80061; 80074; 81001; 82306; 82570; 82962; 83970; 84100; 84156; 84300; 84484; 84550; 85025; 85027; 86038; 86334; 87086; 93005; 93306; G0378; J3490; Q0162; C1750; J0360; J0696; J1200; J1644; J2250; J2270; J2405; J3010; J7030; U0003

== ENCOUNTER 2021-09-21 08:48 | Emergency (ER) | payer SELFPAY ==
[2021-09-21 09:13] VITALS: BP 156/90
--- NOTE | 2021-09-21 09:57 | Emergency Department Report ---
ED General Adult HPI - General Chief complaint: Medical Clearance Stated complaint: NEED DIALYSIS PUI?: No Time Seen by Provider: 09/21/21 09:18 Source: patient Mode of arrival: Ambulatory Limitations: No Limitations - History of Present Illness Initial comments: Chief complaint: "I was told to come back here for dialysis." HPI: This is a 40-year-old male with history of chronic kidney disease who presents with request for dialysis treatment. He was told by admitting physician to return to the hospital for dialysis. According to nephrology consultation, patient is not end-stage renal disease. Intermittent hemodialysis recommended. Case management documentation stated that patient was referred to [facility]. Patient did confirm that he has received this referral. He denies shortness of breath or swelling. He has been in good health. Last hemodialysis treatment occurred on . I reviewed discharge summary. Hospitalist Dr. Goodwin instructed patient to return to the emergency department on Thursday today for hemodialysis. Severity scale (0 -10): 0 Improves with: none Worsens with: none Associated Symptoms: denies other symptoms Treatments Prior to Arrival: none - Related Data Previous Rx's Medication Instructions Recorded Last Taken Type NIFEdipine XL [Procardia Xl] 30 mg PO Q12HR #60 tab 09/19/21 Unknown Rx calcitrioL [Rocaltrol] 0.5 mcg PO QDAY #30 capsule 09/19/21 Unknown Rx carvediloL [Coreg] 6.25 mg PO BID #60 tablet 09/19/21 Unknown Rx Allergies Allergy/AdvReac Type Severity Reaction Status Date / Time No Known Allergies Allergy Verified 09/21/21 09:13 ED Review of Systems ROS: Stated complaint: NEED DIALYSIS Other details as noted in HPI Comment: All other systems reviewed and negative Constitutional: denies: chills, fever, malaise Respiratory: denies: cough, shortness of breath Cardiovascular: denies: chest pain Gastrointestinal: denies: abdominal pain, nausea, vomiting Psychiatric: denies: anxiety, depression ED Past Medical Hx - Past Medical History Previous Medical History?: Yes Hx Congestive Heart Failure: No Hx Diabetes: No Hx Renal Disease: Yes Hx Asthma: No Hx COPD: No - Surgical History Past Surgical History?: Yes Additional Surgical History: permacath - Social History Smoking Status: Never Smoker Substance Use Type: None - Medications Home Medications: Home Medications Medication Instructions Recorded Confirmed Last Taken Type NIFEdipine XL [Procardia Xl] 30 mg PO Q12HR #60 tab 09/19/21 Unknown Rx calcitrioL [Rocaltrol] 0.5 mcg PO QDAY #30 capsule 09/19/21 Unknown Rx carvediloL [Coreg] 6.25 mg PO BID #60 tablet 09/19/21 Unknown Rx ED Physical Exam - General Limitations: No Limitations General appearance: alert, in no apparent distress - Head Head exam: Present: atraumatic, normocephalic - Eye Eye exam: Present: normal appearance - ENT ENT exam: Present: mucous membranes moist - Neck Neck exam: Present: normal inspection, full ROM - Respiratory Respiratory exam: Present: normal lung sounds bilaterally. Absent: respiratory distress, wheezes, rales, rhonchi - Cardiovascular Cardiovascular Exam: Present: regular rate, normal rhythm, normal heart sounds. Absent: systolic murmur, diastolic murmur, rubs, gallop - GI/Abdominal GI/Abdominal exam: Present: soft, normal bowel sounds. Absent: distended, tenderness, guarding, rebound - Rectal Rectal exam: Present: deferred - Extremities Exam Extremities exam: Present: normal inspection - Neurological Exam Neurological exam: Present: alert, oriented X3 - Psychiatric Psychiatric exam: Present: normal affect, normal mood - Skin Skin exam: Present: warm, dry, intact, normal color. Absent: rash ED Course Vital Signs 09/21/21 09:12 Temperature 98 F Pulse Rate 81 Respiratory 18 Rate Blood Pressure 156/90 [Left] O2 Sat by Pulse 98 Oximetry ED Medical Decision Making - Lab Data Result diagrams: 09/21/21 09:37 - Medical Decision Making Chronic kidney disease Potassium 3.7. BUN 30 creatinine 3.3 no significant acidosis. I recommended patient to follow-up with [facility] as instructed. Also given referral to [facility]. If unable to follow-up at [facility] or [facility], he is welcome to return to the emergency department for evaluation. Critical care attestation.: If time is entered above; I have spent that time in minutes in the direct care of this critically ill patient, excluding procedure time. ED Disposition Clinical Impression: Chronic kidney disease Disposition: HOME / SELF CARE / HOMELESS Is pt being admited?: No Does the pt Need Aspirin: No Condition: Stable Instructions: Food Basics for Chronic Kidney Disease, Chronic Kidney Disease, Adult, [id number] Referrals: REMY CAVAZOS MD [Staff Physician] - 3-5 Days
[2021-09-21 10:18] LABS: Calcium 9.8 mg/dL (8.4-10.2)
== END 2021-09-21 11:12 | disposition home or self-care (01) ==
LOC: ED 08:48
DX: N18.9 Chronic kidney disease, unspecified (principal)
CPT/HCPCS: 36415; 80048; 99282

== ENCOUNTER 2021-09-28 10:34 | Emergency (ER) | payer SELFPAY ==
[2021-09-28 10:47] VITALS: BP 139/88
--- NOTE | 2021-09-28 11:06 | Emergency Department Report ---
HPI - General Chief Complaint: Medical Clearance Time Seen by Provider: 09/28/21 10:52 - HPI HPI: 40-year-old -Portuguese male presents to the emergency department with a complaint of shortness of breath and "I need dialysis." The patient was admitt ed here on 09/07 with acute renal failure and was admitted here until 09/19. During that time he had a tunneled right IJ hemodialysis catheter placed and began receiving hemodialysis. The patient presented here again on 09/21 to get dialyzed but his numbers did not appear significant enough to require emergency dialysis and the patient was discharged home. He says that he is unassigned for a dialysis clinic because "I do not have insurance yet." He said that he tried to follow-up at [facility] in the interim for dialysis but was told that he was too late to get dialysis that day and he did not require emergent dialysis at that time. He denies any chest pain, fever. He has not taken anything for symptoms prior to presentation. His initial nephrology consultation here says that the patient is not end-stage renal disease and it was recommended that the patient may need intermittent dialysis. ED Past Medical Hx - Past Medical History Hx Congestive Heart Failure: No Hx Diabetes: No Hx Renal Disease: Yes Hx Asthma: No Hx COPD: No - Surgical History Additional Surgical History: permacath - Social History Smoking Status: Never Smoker Substance Use Type: None - Medications Home Medications: Home Medications Medication Instructions Recorded Confirmed Last Taken Type NIFEdipine XL [Procardia Xl] 30 mg PO Q12HR #60 tab 09/19/21 Unknown Rx calcitrioL [Rocaltrol] 0.5 mcg PO QDAY #30 capsule 09/19/21 Unknown Rx carvediloL [Coreg] 6.25 mg PO BID #60 tablet 09/19/21 Unknown Rx ED Review of Systems ROS: Stated complaint: DIAYSIS Other details as noted in HPI Comment: All other systems reviewed and negative Constitutional: denies: chills, fever Eyes: denies: eye pain, vision change ENT: denies: ear pain, throat pain Respiratory: shortness of breath. denies: cough Cardiovascular: denies: chest pain, edema Gastrointestinal: denies: abdominal pain, vomiting Genitourinary: denies: dysuria, discharge Musculoskeletal: denies: back pain, arthralgia Skin: denies: rash, lesions Neurological: denies: headache, weakness Physical Exam - Physical Exam Vital Signs: Vital Signs 09/28/21 10:45 Temperature 98.5 F Pulse Rate 67 Respiratory 20 Rate Blood Pressure 139/88 O2 Sat by Pulse 100 Oximetry Physical Exam: GENERAL: The patient is well-developed well-nourished. HENT: Normocephalic. Atraumatic. Patient has moist mucous membranes. EYES: Extraocular motions are intact. NECK: Supple. Trachea is midline. CHEST/LUNGS: Clear to auscultation. There is no respiratory distress noted. HEART/CARDIOVASCULAR: Regular. There is no tachycardia. There is no murmur. ABDOMEN: Abdomen is soft, nontender. Patient has normal bowel sounds. SKIN: Skin is warm and dry. NEURO: The patient is awake, alert, and oriented. The patient is cooperative. Normal speech. MUSCULOSKELETAL: There is no tenderness or deformity. There is no limitation range of motion. ED Course Vital Signs 09/28/21 10:45 Temperature 98.5 F Pulse Rate 67 Respiratory 20 Rate Blood Pressure 139/88 O2 Sat by Pulse 100 Oximetry ED Medical Decision Making - Lab Data Result diagrams: 09/28/21 10:58 09/28/21 10:58 Lab Results 09/28/21 09/28/21 Range/Units 10:58 10:58 WBC 4.3 L (4.5-11.0) K/mm3 RBC 4.20 (3.65-5.03) M/mm3 Hgb 11.9 (11.8-15.2) gm/dl Hct 36.1 (35.5-45.6) % MCV 86 (84-94) fl MCH 28 (28-32) pg MCHC 33 (32-34) % RDW 12.5 L (13.2-15.2) % Plt Count 217 (140-440) K/mm3 Lymph % (Auto) 39.6 H (13.4-35.0) % Stephenson % (Auto) 11.3 H (0.0-7.3) % Eos % (Auto) 2.8 (0.0-4.3) % Baso % (Auto) 2.7 H (0.0-1.8) % Lymph # (Auto) 1.7 (1.2-5.4) K/mm3 Stephenson # (Auto) 0.5 (0.0-0.8) K/mm3 Eos # (Auto) 0.1 (0.0-0.4) K/mm3 Baso # (Auto) 0.1 (0.0-0.1) K/mm3 Seg Neutrophils % 43.6 (40.0-70.0) % Seg Neutrophils # 1.9 (1.8-7.7) K/mm3 Sodium 138 (137-145) mmol/L Potassium 4.4 (3.6-5.0) mmol/L Chloride 103.6 (98-107) mmol/L Carbon Dioxide 24 (22-30) mmol/L Anion Gap 15 mmol/L BUN 23 H (9-20) mg/dL Creatinine 1.6 H (0.8-1.3) mg/dL Estimated GFR 58 ml/min BUN/Creatinine Ratio 14 % Glucose 93 (75-100) mg/dL Calcium 9.5 (8.4-10.2) mg/dL - Radiology Data Radiology results: image reviewed interpreted by me: Chest x-ray does not show any acute process. There are no pleural effusions, obvious pneumonia and there is no pneumothorax. No widened mediastinum. - Medical Decision Making This patient presented to the emergency department with a complaint of some mild shortness of breath and the need for dialysis. The patient was found to have acute kidney injury/acute renal failure during an admission here from 09/07 and received dialysis up to 09/19. With the patient was here 1 week ago, 09/21, he had a creatinine of about 3.3. The patient's blood work today is greatly improved. He has a creatinine of 1.6, GFR of 58, BUN of 23. While not necessarily all within normal limits, this is greatly improved from a week ago and certainly does not appear consistent with someone needing emergency dialysis. Chest x-ray does not show any pleural effusions, pneumothorax, widened mediastinum, pneumonia, or any other acute process. Vital signs reassuring including being afebrile and no hypoxia. For all these reasons patient appears safe for discharge home at this time. He has been instructed to follow-up with nephrology for evaluation of his improved kidney function and whether or not he still needs intermittent dialysis. Until that time we discussed continuing with the same renal discharge instructions including avoiding NSAIDs, avoiding foods and drinks that are high in potassium, and a reasonable amount of hydration. The patient understands and agrees to the plan. Critical Care Time: No Critical care attestation.: If time is entered above; I have spent that time in minutes in the direct care of this critically ill patient, excluding procedure time. ED Disposition Clinical Impression: Mild renal insufficiency Disposition: 01 HOME / SELF CARE / HOMELESS Is pt being admited?: No Condition: Stable Additional Instructions: Your creatinine today was 1.6. When you were here 1 week ago your creatinine at that time was 3.3. While it is not yet quite at the "normal range", this is a great improvement. You do not appear to require any emergent dialysis today. It is very important that you follow-up outpatient with a forest fire fighters dispatcher. Until that time continue avoiding NSAIDs such as ibuprofen, Aleve, Advil, naproxen, Naprosyn. I have given you a referral for Dr. Cavazos, one of the forest fire fighters dispatcher for [facility]3] nephrology whom you saw while admitted to this hospital earlier this month. Please follow-up with a primary care physician in the next few days. I have given you a referral for a local primary care physician, Dr. Crespo, and a primary care clinic, [facility]. Return to the emergency department with any worsening of your symptoms, new or concerning symptoms not addressed during this current emergency department visit, or with any acute distress. Referrals: REMY CAVAZOS MD [Staff Physician] - 3-5 Days NATALIO CRESPO MD [Staff Physician] - 3-5 Days [facility] [Provider Group] - 3-5 Days Time of Disposition: 11:57
[2021-09-28 11:46] LABS: Calcium 9.5 mg/dL (8.4-10.2)
[2021-09-28 11:49] LABS: Basophils # (Auto) 0.1 K/mm3 (0.0-0.1); Basophils % (Auto) 2.7 % (0.0-1.8); Eosinophils # (Auto) 0.1 K/mm3 (0.0-0.4); Eosinophils % (Auto) 2.8 % (0.0-4.3); Hematocrit 36.1 % (35.5-45.6); Hemoglobin 11.9 gm/dl (11.8-15.2); Lymphocytes # (Auto) 1.7 K/mm3 (1.2-5.4); Lymphocytes % (Auto) 39.6 % (13.4-35.0); Mean Corpuscular HGB Conc 33 % (32-34); Mean Corpuscular Volume 86 fl (84-94); Monocytes # (Auto) 0.5 K/mm3 (0.0-0.8); Monocytes % (Auto) 11.3 % (0.0-7.3); Platelet Count 217 K/mm3 (140-440); Red Cell Distribution Width 12.5 % (13.2-15.2)
--- NOTE | 2021-09-28 14:17 | XRay Report ---
CHEST PA AND LATERAL VIEWS INDICATION: SOB. COMPARISON: 09/07/2021 FINDINGS: Support devices: The right-sided central catheter tip projects over the SVC in expected position. Heart: Within normal limits. Lungs/Pleura: No acute pulmonary or pleural findings. IMPRESSION: 1. No acute findings. Signer Name: Jc Orosco MD Signed: 09/28/2021 2:13 PM Workstation Name: [id number]
== END 2021-09-28 12:09 | disposition home or self-care (01) ==
LOC: ED 10:34
DX: N18.2 Chronic kidney disease, stage 2 (mild) (principal)
CPT/HCPCS: 36415; 71046; 80048; 85025; 99283

== ENCOUNTER 2021-10-04 09:30 | Emergency (ER) | payer SELFPAY ==
--- NOTE | 2021-10-04 10:02 | Emergency Department Report ---
ED General Adult HPI - General Chief complaint: Medical Clearance Stated complaint: DIALYSIS,BANDAGE Time Seen by Provider: 10/04/21 09:54 Source: patient Mode of arrival: Ambulatory Limitations: No Limitations - History of Present Illness Initial comments: Patient presents requesting a dressing change room attendant his dialysis catheter as well as laboratory evaluation. In August he ended up in acute renal failure requiring dialysis. He was uninsured so he has been going to the emergency department periodically to have his potassium and other levels checked to see when he needed dialysis. Last Thursday he was seen and was told that his kidney function was actually improving and that he might not actually need dialysis. He was told to follow-up with the auto air conditioning apprentice to talk about removing the dialysis catheter. Patient does not have insurance and states that he could not follow-up. He came in today because he thinks it is time for a blood check. He also is concerned that the dialysis catheter in place needs a different dressing. The initial dressing had come off and he placed a bandage over it. 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 He denies chest pain or shortness of breath it is no back pain. No vomiting or diarrhea. - Related Data Previous Rx's Medication Instructions Recorded Last Taken Type NIFEdipine XL [Procardia Xl] 30 mg PO Q12HR #60 tab 09/19/21 Unknown Rx calcitrioL [Rocaltrol] 0.5 mcg PO QDAY #30 capsule 09/19/21 Unknown Rx carvediloL [Coreg] 6.25 mg PO BID #60 tablet 09/19/21 Unknown Rx Allergies Allergy/AdvReac Type Severity Reaction Status Date / Time No Known Allergies Allergy Verified 09/21/21 09:13 ED Review of Systems ROS: Stated complaint: DIALYSIS,BANDAGE Other details as noted in HPI Comment: All other systems reviewed and negative Constitutional: denies: fever Eyes: denies: vision change ENT: denies: throat pain Respiratory: denies: cough Cardiovascular: denies: chest pain Endocrine: denies: unexplained weight loss Gastrointestinal: denies: abdominal pain Genitourinary: denies: dysuria Musculoskeletal: denies: back pain Skin: denies: rash Neurological: denies: headache Hematological/Lymphatic: denies: easy bruising ED Past Medical Hx - Past Medical History Hx Congestive Heart Failure: No Hx Diabetes: No Hx Renal Disease: Yes Hx Asthma: No Hx COPD: No - Surgical History Additional Surgical History: permacath - Family History Family history: no significant - Social History Smoking Status: Never Smoker Substance Use Type: None - Medications Home Medications: Home Medications Medication Instructions Recorded Confirmed Last Taken Type NIFEdipine XL [Procardia Xl] 30 mg PO Q12HR #60 tab 09/19/21 Unknown Rx calcitrioL [Rocaltrol] 0.5 mcg PO QDAY #30 capsule 09/19/21 Unknown Rx carvediloL [Coreg] 6.25 mg PO BID #60 tablet 09/19/21 Unknown Rx ED Physical Exam - General Limitations: No Limitations, Other (Pulse ox noted and normal) General appearance: alert, in no apparent distress - Head Head exam: Present: atraumatic, normocephalic - Eye Eye exam: Present: normal appearance, EOMI. Absent: scleral icterus - ENT ENT exam: Present: normal orophraynx, normal external ear exam - Neck Neck exam: Present: normal inspection. Absent: meningismus - Respiratory Respiratory exam: Present: normal lung sounds bilaterally. Absent: respiratory distress - Cardiovascular Cardiovascular Exam: Present: regular rate, normal rhythm - GI/Abdominal GI/Abdominal exam: Present: soft. Absent: distended - Extremities Exam Extremities exam: Present: normal capillary refill - Back Exam Back exam: Absent: CVA tenderness (R), CVA tenderness (L) - Neurological Exam Neurological exam: Present: alert, oriented X3, CN II-XII intact, normal gait. Absent: motor sensory deficit - Psychiatric Psychiatric exam: Present: normal affect, normal mood - Skin Skin exam: Present: warm, dry ED Course Vital Signs 10/04/21 10/04/21 09:42 10:18 Temperature 98.4 F Pulse Rate 94 H Respiratory 18 Rate Blood Pressure 114/67 [Right] O2 Sat by Pulse 99 96 Oximetry - Reevaluation(s) Reevaluation #1: 10/04/21 10:01 Labs were ordered. Dressing change was ordered. nursing services manager consult was placed. Old records noted. Reevaluation #2: 10/04/21 11:35 Labs are noted. Patient likely does not need his Paulo catheter in place. He can likely be discharged with outpatient referral. ED Medical Decision Making - Lab Data Result diagrams: 10/04/21 10:07 - Medical Decision Making Patient presents requesting a bandage change and lab draw. His creatinine has improved. There is no evidence of renal damage at this time. He does not require emergent dialysis. He does have a catheter in place that will be left in place. Reading the nephrology notes, the plan was to reevaluate at the end of 90 days and determine next steps. They were planning on doing dialysis as needed. We will continue this process and the patient was referred back to nephrology as well as vascular surgery. Critical Care Time: No Critical care attestation.: If time is entered above; I have spent that time in minutes in the direct care of this critically ill patient, excluding procedure time. ED Disposition Clinical Impression: Dressing change, Chronic kidney disease Disposition: HOME / SELF CARE / HOMELESS Is pt being admited?: No Condition: Stable Instructions: Food Basics for Chronic Kidney Disease Additional Instructions: Continue to drink water and avoid foods with potassium. Follow-up as referred. Referrals: PRIMARY CAREMD [Primary Care Provider] - 3-5 Days RAQUEL PRADHAN MD [Staff Physician] - 3-5 Days REMY CAVAZOS MD [Staff Physician] - 3-5 Days
[2021-10-04 10:22] VITALS: BP 114/67
[2021-10-04 10:43] LABS: BUN/Creatinine Ratio 12; Blood Urea Nitrogen 17 mg/dL (9-20); Calcium 9.2 mg/dL (8.4-10.2); Hemolysis Index 5
== END 2021-10-04 12:09 | disposition home or self-care (01) ==
LOC: ED 09:30
DX: N18.9 Chronic kidney disease, unspecified (principal); Z48.01 Encounter for change or removal of surgical wound dressing; Z79.899 Other long term (current) drug therapy
CPT/HCPCS: 36415; 80048; 99283

== ENCOUNTER 2021-10-13 09:40 | Emergency (ER) | payer OTHER ==
[2021-10-13 09:48] VITALS: BP 109/62
--- NOTE | 2021-10-13 09:51 | Emergency Department Report ---
ED General Adult HPI - General Chief complaint: Medical Clearance Stated complaint: DIALYSIS,HEADACHE,FEVER Source: patient Mode of arrival: Ambulatory Limitations: No Limitations - History of Present Illness Initial comments: 41-year-old -[place] male with a history of hemodialysis presents to the emergency room stating that he does not feel felt that he had a fever. Patient was recently evaluated on 10/04/2021 patient reports he is coming into be evaluated for possible dialysis. Reports that he is vaccinated but not booster. Patient is currently on Coreg calcitriol and nifedipine. 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 Last GFR on 10/04/21 was >60 and lower GFR 4 on 09/12/21. Covid neg 09/09/21. Onset/Timin -: hour(s) Severity scale (0 -10): 0 Consistency: intermittent Improves with: none Worsens with: none Associated Symptoms: headaches, loss of appetite, other (Rhinorrhea). denies: chest pain, cough, fever/chills, nausea/vomiting, shortness of breath, weakness Treatments Prior to Arrival: none - Related Data Previous Rx's Medication Instructions Recorded Last Taken Type NIFEdipine XL [Procardia Xl] 30 mg PO Q12HR #60 tab 09/19/21 Unknown Rx calcitrioL [Rocaltrol] 0.5 mcg PO QDAY #30 capsule 09/19/21 Unknown Rx carvediloL [Coreg] 6.25 mg PO BID #60 tablet 09/19/21 Unknown Rx Allergies Allergy/AdvReac Type Severity Reaction Status Date / Time No Known Allergies Allergy Verified 09/21/21 09:13 ED Review of Systems ROS: Stated complaint: DIALYSIS,HEADACHE,FEVER Other details as noted in HPI Comment: All other systems reviewed and negative ED Past Medical Hx - Past Medical History Previous Medical History?: Yes Hx Congestive Heart Failure: No Hx Diabetes: No Hx Renal Disease: Yes Hx Asthma: No Hx COPD: No - Surgical History Past Surgical History?: Yes Additional Surgical History: permacath - Social History Smoking Status: Never Smoker Substance Use Type: None - Medications Home Medications: Home Medications Medication Instructions Recorded Confirmed Last Taken Type NIFEdipine XL [Procardia Xl] 30 mg PO Q12HR #60 tab 09/19/21 Unknown Rx calcitrioL [Rocaltrol] 0.5 mcg PO QDAY #30 capsule 09/19/21 Unknown Rx carvediloL [Coreg] 6.25 mg PO BID #60 tablet 09/19/21 Unknown Rx ED Physical Exam - General Limitations: No Limitations General appearance: alert, in no apparent distress - Head Head exam: Present: atraumatic, normocephalic - Eye Eye exam: Present: normal appearance - ENT ENT exam: Present: mucous membranes moist. Absent: normal external ear exam - Neck Neck exam: Present: normal inspection - Respiratory Respiratory exam: Present: normal lung sounds bilaterally. Absent: respiratory distress - Cardiovascular Cardiovascular Exam: Present: regular rate, normal rhythm. Absent: systolic murmur, diastolic murmur, rubs, gallop - GI/Abdominal GI/Abdominal exam: Present: soft, normal bowel sounds - Rectal Rectal exam: Present: deferred - Extremities Exam Extremities exam: Present: normal inspection - Back Exam Back exam: Present: normal inspection - Neurological Exam Neurological exam: Present: alert, oriented X3 - Psychiatric Psychiatric exam: Present: normal affect, normal mood - Skin Skin exam: Present: warm, dry, intact, normal color. Absent: rash ED Course Vital Signs 10/13/21 10/13/21 09:47 09:48 Temperature 98.6 F 98.6 F Pulse Rate 107 H 107 H Respiratory 20 20 Rate Blood Pressure 109/62 Blood Pressure 109/62 [Right] O2 Sat by Pulse 98 98 Oximetry ED Medical Decision Making - Lab Data Result diagrams: 10/13/21 10:00 10/13/21 10:00 - Medical Decision Making 41-year-old -[place] male with a history of hemodialysis presents to the emergency room stating that he does not feel felt that he had a fever. Patient was recently evaluated on 10/04/2021 patient reports he is coming into be evaluated for possible dialysis. Reports that he is vaccinated but not booster. Patient is currently on Coreg calcitriol and nifedipine. 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 Last GFR on 10/04/21 was >60 and lower GFR 4 on 09/12/21. Covid neg 09/09/21. Patient has stable vital signs and labs are non actionable. Patient need to follow up with is Nephrology Critical care attestation.: If time is entered above; I have spent that time in minutes in the direct care of this critically ill patient, excluding procedure time. ED Disposition Clinical Impression: Renal insufficiency Disposition: HOME / SELF CARE / HOMELESS Is pt being admited?: No Does the pt Need Aspirin: No Condition: Stable Instructions: Chronic Kidney Disease, Adult, Preventing Chronic Kidney Disease Additional Instructions: Labs are stable. Increase your fluid intake advance your diet as tolerated and follow-up with your primary care provider and your highway administrative engineer. Your labs demonstrate no need for dialysis today. Referrals: PRIMARY CARE [Primary Care Provider] - 3-5 Days Time of Disposition: 11:56
[2021-10-13 10:41] LABS: Hematocrit 38.5 % (35.5-45.6); Mean Corpuscular HGB Conc 34 % (32-34); Mean Corpuscular Volume 85 fl (84-94); Platelet Count 119 K/mm3 (140-440); Red Blood Count 4.55 M/mm3 (3.65-5.03); Red Cell Distribution Width 13.3 % (13.2-15.2)
[2021-10-13 10:51] LABS: Calcium 8.5 mg/dL (8.4-10.2)
[2021-10-13 11:27] LABS: Band Neutrophils # (Manual) 0.1 K/mm3; Basophils % (Manual) 0 % (0.0-1.8); Eosinophils % (Manual) 0 % (0.0-4.3); Total Cells Counted 100
[2021-10-13 11:28] LABS: Platelet Estimate Consistent w Auto; RBC Morphology Normal
== END 2021-10-13 12:10 | disposition home or self-care (01) ==
LOC: ED 09:40
DX: N28.9 Disorder of kidney and ureter, unspecified (principal)
CPT/HCPCS: 36415; 80048; 85007; 85025; 99283